=== PATIENT | female | born 1940 | race Caucasian/White ===

== ENCOUNTER 2016-06-13 17:11 | Inpatient (IN) | payer MEDICARE, OTHER ==
[~2016-06-13] VITALS: Ht 167.6 cm; Wt 69.3 kg
[~2016-06-13 17:11] MED LIST: ACET325 PO; ALBU8I INH; DUONSOL2 NEB; ENOX40P SQ; FLUO10TA PO; HYDR10SO PO; LOPR100T PO; LORTA5 PO; MONT10 PO; PERC10TA27 PO; SULF-154 PO; SYMB80AE INH
[2016-06-13 17:13] VITALS: BP 137/61; PULSE 94; RESP 20; TEMP 98.9; O2SAT 92
[2016-06-13] MEDS ORDERED: ONDANSETRON HCL 4 MG/2 ML VIAL IVP ONE (18:00)
[2016-06-13] MEDS ORDERED: SODIUM CHLORIDE 0.9% FLUSH 10 ML FLUSH IV FLUSH PRN ×2 (18:00→22:15)
[2016-06-13] MEDS ORDERED: PRED10PA PO (18:03)
[2016-06-13] MEDS ORDERED: SYMB160A INH (18:03)
[2016-06-13] MEDS ORDERED: VENTAER INH (18:03)
[2016-06-13] MEDS ORDERED: FLUO40CA PO (18:03)
[2016-06-13] MEDS ORDERED: OMEP40CA2 PO (18:03)
[2016-06-13] MEDS ORDERED: GABA100C4 PO (18:03)
[2016-06-13] MEDS ORDERED: MONT10TA4 PO (18:03)
[2016-06-13] MEDS ORDERED: IPRASOL INH (18:03)
[2016-06-13] MEDS ORDERED: PERC10TA27 PO (18:03)
[2016-06-13] MEDS ORDERED: METO50TA PO (18:03)
[2016-06-13 18:09] VITALS: BP 159/70; PULSE 80; RESP 18; O2SAT 98
[2016-06-13 18:23] LABS: AUTOMATED NEUTROPHIL # 11.7 TH/MM3 (1.8-7.7); BASOPHIL % 0.3 % (0.0-2.0); EOSINOPHIL % 0.3 % (0.0-4.0); HEMATOCRIT 38.5 % (35.0-46.0); HEMO FLAGS DIFF FINAL; LYMPH % 7.1 % (9.0-44.0); MEAN CELL VOLUME 92.6 FL (80.0-100.0); MEAN CORPUSCULAR HEMOGLOBIN 30.6 PG (27.0-34.0); MONO % 8.3 % (0.0-8.0); PLATELET COUNT 219 TH/MM3 (150-450); RED BLOOD COUNT 4.16 MIL/MM3 (4.00-5.30); RED CELL DISTRIBUTION WIDTH 14.3 % (11.6-17.2)
[2016-06-13 18:34] LABS: INTERNATIONAL NORMALIZED RATIO 0.9 RATIO; PROTHROMBIN TIME - PATIENT 10.3 SEC (9.8-11.6)
--- NOTE | 2016-06-13 18:45 | RADRPT ---
EXAM DATE/TIME: 06/13/2016 17:55 [facility] COMPARISON: No previous studies available for comparison. INDICATIONS : Chest discomfort, left flank pain for 24 hours MEDICAL HISTORY : None. SURGICAL HISTORY : None. ENCOUNTER: Initial ACUITY: 1 day PAIN SCORE: Non-responsive. LOCATION: Bilateral chest FINDINGS: Mild bibasilar atelectasis. Lungs are hyperexpanded. No pleural effusion or pneumothorax. Heart size stable, within normal limits. Tortuous thoracic aorta again noted. CONCLUSION: Hyperexpanded lungs and mild bibasilar atelectasis. Haseeb Wall MD on June 13, 2016 at 18:43 Board Certified Radiologist. This report was verified electronically.
--- NOTE | 2016-06-13 18:45 | PD ---
HPI Chief Complaint: Flank/Kidney Pain Time Seen by Provider: 18:00 Travel History International Travel<30 days: No Contact w/Intl Traveler<30days: No Traveled to known affect area: No History of Present Illness HPI Patient comes in complaining of left flank pain that began around 1500 today after waking from sleep. Patient denies anything making the pain better or worse. Pain is sharp stabbing like in nature and radiates across her back. Patient denies any nausea, vomiting, abdominal pain, loss or change in bowel or bladder, numbness or tingling anywhere, chest pain, fevers, shortness of breath of the ordinary, or known trauma. PFSH Past Medical History Arthritis: No Asthma: Yes Atrial Fibrillation: Yes Anxiety: No Depression: Yes Heart Rhythm Problems: Yes (CARDIOVERTED FOR A-FIB WITH RVR) Cardiovascular Problems: Yes High Cholesterol: No Chest Pain: No Congestive Heart Failure: No COPD: Yes Cerebrovascular Accident: No Coronary Artery Disease: Yes Diabetes: No Diminished Hearing: No Gastrointestinal Disorders: Yes GERD: Yes Genitourinary: No Hepatitis: No Hiatal Hernia: No Hypertension: Yes Kidney Stones: No Musculoskeletal: Yes (ENTIRE LT SIDE OF BODY PAIN FROM VERTEBRAE) Neurologic: No Psychiatric: Yes Reproductive: No Respiratory: Yes (COPD ON O2 AT ALL TIMES 3 LNC) Migraines: No Myocardial Infarction: No Renal Failure: No Seizures: No Sleep Apnea: No Ulcer: Yes Past Surgical History Abdominal Surgery: Yes Appendectomy: No Cardiac Surgery: No Section: Yes Cholecystectomy: No Ear Surgery: No Endocrine Surgery: No Eye Surgery: No Genitourinary Surgery: No Gynecologic Surgery: Yes Neurologic Surgery: Yes (BLOOD CLOT IN SPINE) Oral Surgery: No Pacemaker: No Thoracic Surgery: No Other Surgery: Yes (CERV FUSION) Social History Alcohol Use: No Tobacco Use: No (Quit 6 years ago) Substance Use: No Allergies-Medications (Allergen,Severity, Reaction): Coded Allergies: *MDRO Multi-Drug Resistant Organism (Verified Allergy, Unknown, 11/25/13) mrsa sputum 2008 Reported Meds & Prescriptions Reported Meds & Active Scripts Active Reported Omeprazole 40 Mg Cap 40 Mg PO DAILY Percocet (Oxycodone-Acetaminophen) 10-325 mg Tab 1 Tab PO Q6H PRN Fluoxetine (Fluoxetine HCl) 40 Mg Cap 40 Cap PO DAILY Montelukast (Montelukast Sodium) 10 Mg Tab 10 Mg PO HS Gabapentin 100 Mg Cap 100 Mg PO BID Duoneb (Ipratropium-Albuterol Neb) 0.5-2.5 Mg/3 Ml Neb 2.5 Nebule INH Q4HR NEB Ventolin Hfa 18 GM Inh (Albuterol Sulfate) 90 Mcg/Act Aer 2 Puff INH Q4H PRN Symbicort Inh (Budesonide/Formoterol Fumarate) 160-4.5 Mcg/Act Aero 1 Puff INH BID PRN Prednisone (21) 10 mg tab Dose Pack (Prednisone) 10 Mg Pack 10 Mg PO DIRECTED Metoprolol Tartrate 50 Mg Tab 50 Mg PO BID Review of Systems Except as stated in HPI: all other systems reviewed are Neg Physical Exam Narrative GENERAL: Well-developed, well nourished, in no acute distress, and non-ill appearing. SKIN: Focused skin assessment warm and dry. HEAD: Atraumatic. Normocephalic. EYES: Pupils equal and round. EOMI. No scleral icterus. No injection or drainage. ENT: No nasal bleeding or discharge. Mucous membranes pink and moist. NECK: Trachea midline. Supple. No nuclear rigidity. CARDIOVASCULAR: Regular rate and rhythm. No murmur appreciated. RESPIRATORY: No accessory muscle use. No respiratory distress. Decreased breath sounds throughout. Breath sounds equal bilaterally. GASTROINTESTINAL: Abdomen soft, non-tender, nondistended. Hepatic and splenic margins not palpable. Normal bowel sounds 4. No pulsatile mass. Left CVA tenderness. MUSCULOSKELETAL: No obvious deformities. No clubbing. No cyanosis. No edema. Full range of motion. NEUROLOGICAL: Awake and alert. No obvious cranial nerve deficits. Motor grossly within normal limits. Normal speech. PSYCHIATRIC: Appropriate mood and affect; insight and judgment normal. Data Data Last Documented VS Vital Signs Date Time Temp Pulse Resp B/P Pulse Ox O2 Delivery O2 Flow Rate FiO2 06/13/16 18:09 80 18 159/70 98 Nasal Cannula 3 06/13/16 17:13 98.9 Orders Complete Blood Count With Diff (06/13/16 17:52) Comprehensive Metabolic Panel (06/13/16 17:52) Lipase (06/13/16 17:52) Prothrombin Time / Inr (Pt) (06/13/16 17:52) Act Partial Throm Time (Ptt) (06/13/16 17:52) Urinalysis - C+S If Indicated (06/13/16 17:52) Ct Abd/Pel W/O Iv Contrast (06/13/16 17:52) Iv Access Insert/Monitor (06/13/16 17:52) Ecg Monitoring (06/13/16 17:52) Oximetry (06/13/16 17:52) Ondansetron Inj (Zofran Inj) (06/13/16 18:00) Sodium Chloride 0.9% Flush (Ns Flush) (06/13/16 18:00) Electrocardiogram (06/13/16 17:52) Chest, Single Ap (06/13/16 17:52) Sodium Polysty Sulfate Liq (Kayexalate L (06/13/16 19:45) Basic Metabolic Panel (Bmp) (06/13/16 19:33) Piperacil-Tazo 3.375 Gm Premix (Zosyn 3. (06/13/16 21:00) Consult Gastroenterology (06/13/16 ) Ondansetron Inj (Zofran Inj) (06/13/16 21:15) Admit Order (Ed Use Only) (06/13/16 21:23) Labs Laboratory Tests Test 06/13/16 06/13/16 06/13/16 18:00 19:25 19:58 White Blood Count 14.0 TH/MM3 Red Blood Count 4.16 MIL/MM3 Hemoglobin 12.7 GM/DL Hematocrit 38.5 % Mean Corpuscular Volume 92.6 FL Mean Corpuscular Hemoglobin 30.6 PG Mean Corpuscular Hemoglobin 33.0 % Concent Red Cell Distribution Width 14.3 % Platelet Count 219 TH/MM3 Mean Platelet Volume 8.5 FL Neutrophils (%) (Auto) 84.0 % Lymphocytes (%) (Auto) 7.1 % Monocytes (%) (Auto) 8.3 % Eosinophils (%) (Auto) 0.3 % Basophils (%) (Auto) 0.3 % Neutrophils # (Auto) 11.7 TH/MM3 Lymphocytes # (Auto) 1.0 TH/MM3 Monocytes # (Auto) 1.2 TH/MM3 Eosinophils # (Auto) 0.0 TH/MM3 Basophils # (Auto) 0.0 TH/MM3 CBC Comment DIFF FINAL Differential Comment Prothrombin Time 10.3 SEC Prothromb Time International 0.9 RATIO Ratio Activated Partial 23.0 SEC Thromboplast Time Sodium Level 133 MEQ/L 135 MEQ/L Potassium Level 5.9 MEQ/L 4.3 MEQ/L Chloride Level 97 MEQ/L 98 MEQ/L Carbon Dioxide Level 30.1 MEQ/L 31.9 MEQ/L Anion Gap 6 MEQ/L 5 MEQ/L Blood Urea Nitrogen 14 MG/DL 13 MG/DL Creatinine 0.61 MG/DL 0.56 MG/DL Estimat Glomerular Filtration 96 ML/MIN 106 ML/MIN Rate Random Glucose 133 MG/DL 106 MG/DL Calcium Level 8.6 MG/DL 8.3 MG/DL Total Bilirubin 0.4 MG/DL Aspartate Amino Transf 53 U/L (AST/SGOT) Alanine Aminotransferase 37 U/L (ALT/SGPT) Alkaline Phosphatase 41 U/L Total Protein 6.2 GM/DL Albumin 2.9 GM/DL Lipase 192 U/L Urine Color STRAW Urine Turbidity HAZY Urine pH 5.5 Urine Specific [place] 1.016 Urine Protein 30 mg/dL Urine Glucose (UA) 100 mg/dL Urine Ketones NEG mg/dL Urine Occult Blood MOD Urine Nitrite NEG Urine Bilirubin NEGATIVE Urine Urobilinogen 0.2 MG/DL Urine Leukocyte Esterase SMALL Urine RBC 0-3 /hpf Urine WBC 3-5 /hpf Urine Squamous Epithelial 6-8 /hpf Cells Urine Bacteria OCC /hpf Microscopic Urinalysis Comment MDM Medical Decision Making Medical Screen Exam Complete: Yes Emergency Medical Condition: Yes Interpretation(s) EKG reviewed by , shows normal sinus rhythm with ventricular is 76. No STEMI. Differential Diagnosis UTI, kidney stone, electrolyte abnormality, pneumonia, other Narrative Course Patient seen and examined. Initial laboratory and radiological studies were obtained reviewed. Patient was given morphine for pain, Zofran for nausea. Discussed patient with Dr. Mtz, who recommended discussing patient with GI secondary to CT findings. Discussed all findings and plan of care with patient , who is agreeable for admission. All questions were answered. 2150 RN for the patient after eating [employer] that her family Barat taking one bite feels that she had something stuck in her throat is having difficulty swallowing. Patient is reevaluated speaking in full sentences but states she feels that she has something stuck in her throat and she has not been able to swallow nor vomited up. 2239 patient reports improvement of symptoms. States she no longer has sensation of something stuck in her throat and is able to swallow her own saliva again. Physician Communication Physician Communication [address] Lamar who recommends having patient admitted to medicine, and nothing by mouth after midnight, Zosyn IV, and he will consult for ERCP. 2119 discussed patient with Haseeb Wagner of Dr. Neff, who is agreeable to admit the patient. [address] Lamar who recommends giving patient dose of glucagon. Diagnosis Primary Impression: Choledocholithiasis Additional Impression: COPD (chronic obstructive pulmonary disease) Qualified Code: J44.9 - Chronic obstructive pulmonary disease, unspecified COPD type Admitting Information Admitting Physician Requests: Observation Condition: Stable Ulices Trujillo Jun 13, 2016 18:45
--- NOTE | 2016-06-13 19:06 | RADRPT ---
EXAM DATE/TIME: 06/13/2016 18:31 [facility] COMPARISON: No previous studies available for comparison. INDICATIONS : Left flank pain starting today. ORAL CONTRAST: No oral contrast ingested. RADIATION DOSE: 13.28 CTDIvol (mGy) MEDICAL HISTORY : Cardiovascular disease. Hypertension. a-fib Cervical fusion SURGICAL HISTORY : Cervical fusion ENCOUNTER: Initial ACUITY: 1 day PAIN SCALE: 9/10 LOCATION: Left flank Abdomen TECHNIQUE: Volumetric scanning of the abdomen and pelvis was performed. Using automated exposure control and ad justment of the mA and/or kV according to patient size, radiation dose was kept as low as reasonably achievable to obtain optimal diagnostic quality images. FINDINGS: LOWER LUNGS: The visualized lower lungs are clear. LIVER: Homogeneous density without solid lesion. The couple cysts up to 18 mm in size are noted. There is n o dilation of the biliary tree. Numerous small stones are seen in the gallbladder, cystic duct and pr obably in the upper common bile duct. No distention seen.. SPLEEN: Normal size without lesion. PANCREAS: Within normal limits. KIDNEYS: 12 mm right mid zone cyst. No stones are seen. No hydronephrosis or hydroureter. ADRENAL GLANDS: Within normal limits. VASCULAR: There is no aortic aneurysm. BOWEL/MESENTERY: The stomach, small bowel, and colon demonstrate no acute abnormality. There is no free intraperitone al air or fluid. ABDOMINAL WALL: Within normal limits. RETROPERITONEUM: There is no lymphadenopathy. BLADDER: No wall thickening or mass. REPRODUCTIVE: Within normal limits. INGUINAL: There is no lymphadenopathy or hernia. MUSCULOSKELETAL: Osteopenia with degenerative changes of the spine, sacroiliac joints and both hips noted. Previous na il and za fixation of the right femur. Mild superior endplate fracture of L5 vertebral body appears chronic. CONCLUSION: 1. Cholelithiasis and choledocholithiasis. Numerous small stones seen in the gallbladder, cystic duct and upper common bile duct. No perceptible acute inflammatory changes or definite acute obstruction. I don't see a stone in the lower duct or ampullary region. 2. No renal stones or obstructive uropathy. Small cyst of the right kidney. 3. Small cysts of the liver. 4. Aortoiliac atherosclerosis. No aneurysm. 5. Degenerative changes of the spine, sacroiliac joints and both hips. Compression deformity of the L 5 vertebral body appears to be chronic. Haseeb Wall MD on June 13, 2016 at 18:59 Board Certified Radiologist. This report was verified electronically.
[2016-06-13 19:14] LABS: ALKALINE PHOSPHATASE 41 U/L (45-117); ALT (GPT) 37 U/L (10-53); ANION GAP 6 MEQ/L (5-15); AST (GOT) 53 U/L (15-37); BICARBONATE 30.1 MEQ/L (21.0-32.0); BLOOD UREA NITROGEN 14 MG/DL (7-18); CHLORIDE 97 MEQ/L (98-107); GLOMERULAR FILTRATION RATE 96 ML/MIN (>89); POTASSIUM 5.9 MEQ/L (3.5-5.1); SODIUM (NA) 133 MEQ/L (136-145); TOTAL BILIRUBIN ADULT 0.4 MG/DL (0.2-1.0)
[2016-06-13] MEDS ORDERED: SODIUM POLYSTYRENE SULFONATE SUSP 15 GM/60 ML CUP PO ONE (19:45)
[2016-06-13 19:52] LABS: BLOOD, URINE MOD (NEG); GLUCOSE,URINE 100 mg/dL (NEG); KETONE, URINE NEG (NEG); PH, URINE 5.5 (5.0-8.5)
[2016-06-13 19:53] LABS: NITRITE,URINE NEG (NEG); URINE COLOR STRAW (YELLW/STRAW)
[2016-06-13 19:54] LABS: BACTERIA, URINE OCC /hpf; COMMENT2 (UR) CULT NOT INDICATED; CULTURE IF INDICATED CULT NOT INDICATED; RBC, URINE 0-3 /hpf (0-3)
[2016-06-13] MEDS ORDERED: PIPERACIL-TAZO 3.375 GM PREMIX 50 ML IV ONE (21:00)
[2016-06-13 21:15] LABS: BICARBONATE 31.9 MEQ/L (21.0-32.0); POTASSIUM 4.3 MEQ/L (3.5-5.1)
[2016-06-13] MEDS ORDERED: ONDANSETRON HCL 4 MG/2 ML VIAL IV PUSH ONE (21:15)
[2016-06-13] MEDS ORDERED: GLUCAGON 1 MG/ML VIAL IV PUSH ONE (22:00)
[2016-06-13] MEDS ORDERED: MORPHINE SULFATE 4 MG/ML INJ IV PRN (22:15)
[2016-06-13] MEDS ORDERED: NALOXONE HCL 0.4 MG/ML AMP IV PRN (22:15)
[2016-06-13] MEDS ORDERED: SENNOSIDES 8.6 MG TAB PO PRN (22:15)
[2016-06-13] MEDS ORDERED: ACETAMINOPHEN 325 MG TAB PO PRN (22:15)
[2016-06-13] MEDS ORDERED: BISACODYL 10 MG SUPP RECTAL PRN (22:15)
[2016-06-13 22:51] VITALS: BP 150/66; PULSE 91; RESP 18; O2SAT 97
[2016-06-13] MEDS: HEPARIN SODIUM - SQ 10,000 UNITS/ML VIAL SQ SCH (23:14)
[2016-06-13] MEDS: SODIUM CHLOR 0.9% 1000 ML INJ 1,000 ML IV SCH (23:14)
[2016-06-14] VITALS (8 sets, daily range): BP systolic 120–204; BP diastolic 58–84; PULSE 80–100; RESP 18–24; TEMP 97.1–98.8; O2SAT 94–99
[2016-06-14] MEDS: ONDANSETRON HCL 4 MG/2 ML VIAL IVP PRN ×3 (00:30→20:07)
[2016-06-14] MEDS: PIPERACIL-TAZO 3.375 GM PREMIX 50 ML IV SCH ×4 (02:11→20:07)
[2016-06-14 08:00] LABS: BASOPHIL % 0.2 % (0.0-2.0); EOSINOPHIL # 0.3 TH/MM3 (0-0.4); EOSINOPHIL % 2.4 % (0.0-4.0); HEMATOCRIT 36.6 % (35.0-46.0); HEMO FLAGS DIFF FINAL; LYMPHOCYTE # 1.9 TH/MM3 (1.0-4.8); MEAN CELL VOLUME 92.2 FL (80.0-100.0); MEAN CORPUSCULAR HEMOGLOBIN 31.2 PG (27.0-34.0); MEAN CORPUSCULAR HGB CONC 33.8 % (32.0-36.0); MONO % 9.8 % (0.0-8.0); NEUT % 72.6 % (16.0-70.0); PLATELET COUNT 174 TH/MM3 (150-450); RED BLOOD COUNT 3.97 MIL/MM3 (4.00-5.30); WHITE BLOOD COUNT 12.5 TH/MM3 (4.0-11.0)
[2016-06-14] MEDS: SODIUM CHLOR 0.9% 1000 ML INJ 1,000 ML IV SCH ×2 (08:07→20:07)
[2016-06-14 08:24] LABS: INDIRECT BILIRUBIN 0.5 MG/DL (0.0-0.8); TOTAL BILIRUBIN ADULT 0.6 MG/DL (0.2-1.0)
--- NOTE | 2016-06-14 08:25 | PD.CONS ---
HPI History of Present Illness This is a 75 year old who came to the emergency room for evaluation of left flank pain that began around 3 PM yesterday after taking a nap. She reports that the pain awakened her from her sleep. She described it as a sharp stabbing pain that radiated across her back. She denies any associated difficulty urinating, dysuria, or hematuria. She initially denied any further abdominal pain, but on examination has significant tenderness in her right upper quadrant and epigastric area. She then described this discomfort as an intermittent dull ache that also radiates to her back. She denies any jaundice , nausea, vomiting, fevers, or chills. She came to the ER for evaluation of her left flank pain and CT scan of the abdomen and pelvis without IV contrast ()-----> 1. Cholelithiasis and choledocholithiasis. Numerous small stones seen in the gallbladder, cystic duct and upper common bile duct. No perceptible acute inflammatory changes or definite acute obstruction. I don't see a stone in the lower duct or ampullary region. 2. No renal stones or obstructive uropathy. Small cyst of the right kidney. 3. Small cysts of the liver. 4. Aortoiliac atherosclerosis. No aneurysm. 5. Degenerative changes of the spine, sacroiliac joints and both hips. Compression deformity of the L5 vertebral body appears to be chronic. She was noted to have leukocytosis with a WBC of 14.0 and mild elevation of her AST- total bilirubin 0.4, AST 53, ALT 37, alkaline phosphatase 41. She also reports that while she was in the ER, she was eating chicken fillet and had a piece of chicken become lodged in her upper esophagus. She denies any prior problems with food getting lodged in her esophagus. She reports initially she was not able to get anything down. But this has since improved and she is able to swallow her saliva and liquids. PFSH Past Medical History COPD Pneumonia History of SVT and atrial fibrillation Arthritis Chronic neck and back pain Obesity History of pulmonary emboli after surgery MRSA of the sputum in 2008 Degenerative disc disease Cervical spondylosis Chronic cervical myelopathy Right intertrochanteric hip fracture, S/P ORIF ONOFRE Past Surgical History Left ankle surgery Cervical spine surgery ORIF Right intertrochanteric hip fracture Coded Allergies: *MDRO Multi-Drug Resistant Organism (Verified Allergy, Unknown, 11/25/13) mrsa sputum 2009 Medications Allergies Coded Allergies Type Severity Reaction Last Updated Verified *MDRO Multi-Drug Resistant Organism Allergy Unknown 11/25/13 Yes Active Scripts Medications Dose Route/Sig Days Date Category Omeprazole 40 Mg Cap 40 Mg PO DAILY 06/13/16 Reported Percocet (Oxycodone-Acetaminophen) 10-325 mg Tab 1 Tab PO Q6H PRN 06/13/16 Reported Fluoxetine (Fluoxetine HCl) 40 Mg Cap 40 Cap PO DAILY 06/13/16 Reported Montelukast (Montelukast Sodium) 10 Mg Tab 10 Mg PO HS 06/13/16 Reported Gabapentin 100 Mg Cap 100 Mg PO BID 06/13/16 Reported Duoneb (Ipratropium-Albuterol Neb) 0.5-2.5 Mg/3 Ml Neb 2.5 Nebule INH Q4HR NEB 06/13/16 Reported Ventolin Hfa 18 GM Inh (Albuterol Sulfate) 90 Mcg/Act Aer 2 Puff INH Q4H PRN 06/13/16 Reported Symbicort Inh (Budesonide/Formoterol Fumarate) 160-4.5 Mcg/Act Aero 1 Puff INH BID PRN 06/13/16 Reported Prednisone (21) 10 mg tab Dose Pack (Prednisone) 10 Mg Pack 10 Mg PO DIRECTED 06/13/16 Reported Metoprolol Tartrate 50 Mg Tab 50 Mg PO BID 06/13/16 Reported Family History She denies any pertinent family history Social History She quit smoking 10 years ago. She is not sure how long she smoked but states that it was for a long time. She does not drink alcohol. There is no illicit drug use Review of Systems Constitutional: DENIES: Fever, Weight loss, Chills, Change in appetite Respiratory: DENIES: Cough Cardiovascular: DENIES: Chest pain Gastrointestinal: COMPLAINS OF: Abdominal pain, Difficulty Swallowing, Odynophagia, DENIES: Black stools, Bloody stools, Constipation, Diarrhea, Nausea, Vomiting, Swelling of Abdomen, Heartburn, Hematemesis Genitourinary: DENIES: Urinary frequency, Urgency, Hematuria, Dysuria Musculoskeletal: COMPLAINS OF: Joint pain, Back pain, Neck pain Hematologic/lymphatic: DENIES: Bruising Psychiatric: DENIES: Anxiety GI Exam Vitals I&O Vital Signs Date Time Temp Pulse Resp B/P Pulse Ox O2 Delivery O2 Flow Rate FiO2 4/13/17 07:43 98.2 91 18 151/65 97 06/14/16 05:15 97.1 80 21 120/60 97 06/14/16 00:30 98.6 90 19 122/58 98 06/13/16 22:51 91 18 150/66 97 Nasal Cannula 3 06/13/16 18:09 80 18 159/70 98 Nasal Cannula 3 06/13/16 17:13 98.9 94 20 137/61 92 Nasal Cannula 3 I/O 06/13/16 06/13/16 06/13/16 06/14/16 06/14/16 06/14/16 07:00 15:00 23:00 07:00 15:00 23:00 Intake Total 0 ml Balance 0 ml Intake Oral 0 ml # Voids 1 # Bowel Movements 0 Imaging Last Impressions Chest X-Ray [id number] Signed Impressions: Service Date/Time: Monday, June 13, 2016 17:55 - CONCLUSION: Hyperexpanded lungs and mild bibasilar atelectasis. Haseeb Wall MD Abdomen/Pelvis CT [id number] Signed Impressions: Service Date/Time: Monday, June 13, 2016 18:31 - CONCLUSION: 1. Cholelithiasis and choledocholithiasis. Numerous small stones seen in the gallbladder, cystic duct and upper common bile duct. No perceptible acute inflammatory changes or definite acute obstruction. I don't see a stone in the lower duct or ampullary region. 2. No renal stones or obstructive uropathy. Small cyst of the right kidney. 3. Small cysts of the liver. 4. Aortoiliac atherosclerosis. No aneurysm. 5. Degenerative changes of the spine, sacroiliac joints and both hips. Compression deformity of the L5 vertebral body appears to be chronic. Haseeb Wall MD Laboratory Test 06/13/16 06/13/16 06/13/16 18:00 19:25 19:58 White Blood Count 14.0 TH/MM3 Red Blood Count 4.16 MIL/MM3 Hemoglobin 12.7 GM/DL Hematocrit 38.5 % Mean Corpuscular Volume 92.6 FL Mean Corpuscular Hemoglobin 30.6 PG Mean Corpuscular Hemoglobin 33.0 % Concent Red Cell Distribution Width 14.3 % Platelet Count 219 TH/MM3 Mean Platelet Volume 8.5 FL Neutrophils (%) (Auto) 84.0 % Lymphocytes (%) (Auto) 7.1 % Monocytes (%) (Auto) 8.3 % Eosinophils (%) (Auto) 0.3 % Basophils (%) (Auto) 0.3 % Neutrophils # (Auto) 11.7 TH/MM3 Lymphocytes # (Auto) 1.0 TH/MM3 Monocytes # (Auto) 1.2 TH/MM3 Eosinophils # (Auto) 0.0 TH/MM3 Basophils # (Auto) 0.0 TH/MM3 CBC Comment DIFF FINAL Differential Comment Prothrombin Time 10.3 SEC Prothromb Time International 0.9 RATIO Ratio Activated Partial 23.0 SEC Thromboplast Time Sodium Level 133 MEQ/L 135 MEQ/L Potassium Level 5.9 MEQ/L 4.3 MEQ/L Chloride Level 97 MEQ/L 98 MEQ/L Carbon Dioxide Level 30.1 MEQ/L 31.9 MEQ/L Anion Gap 6 MEQ/L 5 MEQ/L Blood Urea Nitrogen 14 MG/DL 13 MG/DL Creatinine 0.61 MG/DL 0.56 MG/DL Estimat Glomerular Filtration 96 ML/MIN 106 ML/MIN Rate Random Glucose 133 MG/DL 106 MG/DL Calcium Level 8.6 MG/DL 8.3 MG/DL Total Bilirubin 0.4 MG/DL Aspartate Amino Transf 53 U/L (AST/SGOT) Alanine Aminotransferase 37 U/L (ALT/SGPT) Alkaline Phosphatase 41 U/L Total Protein 6.2 GM/DL Albumin 2.9 GM/DL Lipase 192 U/L Urine Color STRAW Urine Turbidity HAZY Urine pH 5.5 Urine Specific [place] 1.016 Urine Protein 30 mg/dL Urine Glucose (UA) 100 mg/dL Urine Ketones NEG mg/dL Urine Occult Blood MOD Urine Nitrite NEG Urine Bilirubin NEGATIVE Urine Urobilinogen 0.2 MG/DL Urine Leukocyte Esterase SMALL Urine RBC 0-3 /hpf Urine WBC 3-5 /hpf Urine Squamous Epithelial 6-8 /hpf Cells Urine Bacteria OCC /hpf Microscopic Urinalysis Comment Physical Examination HEENT: Normocephalic; atraumatic; no jaundice. CHEST: CTA, diminished bases CARDIAC: RRR ABDOMEN: Soft, nondistended,RUQ/Epigastric with moderate tenderness no hepatosplenomegaly; bowel sounds are present in all four quadrants. EXTREMITIES: Trace ankle/pedal edema. SKIN: Normal; no rash; no jaundice. 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 Assessment and Plan Plan ASSESSMENT: - Cholelithiasis/Choledocholithiasis. CT scan of the abdomen and pelvis without IV contrast (06/13/16)-----> 1. Cholelithiasis and choledocholithiasis. Numerous small stones seen in the gallbladder, cystic duct and upper common bile duct. No perceptible acute inflammatory changes or definite acute obstruction. I don't see a stone in the lower duct or ampullary region. 2. No renal stones or obstructive uropathy. Small cyst of the right kidney. 3. Small cysts of the liver. 4. Aortoiliac atherosclerosis. No aneurysm. 5. Degenerative changes of the spine, sacroiliac joints and both hips. Compression deformity of the L5 vertebral body appears to be chronic. WBC 4.0, Total bilirubin 0.4, AST 53, ALT 37, alkaline phosphatase 41. NPO, plan for ERCP with possible stent placement today. Zosyn. - Dysphagia, Foreign body esophagus. No prior issues with this. Was eating chicken and anguillan fries from [employer] yesterday evening when a piece of chicken became lodged in her upper esophagus. Initially, she states she was not able to get anything down, but states this has since improved. - Leukocytosis. WBC 14.0. Zosyn. - Left flank pain. No renal stones or obstructive uropathy on CT. Denies any dysuria, hematuria, frequency. - COPD/ONOFRE. Per primary PLAN: - Plan for EGD with FB removal, ERCP with possible sphincterotomy, stent placement - Obtain consents - NPO - Cont. IVF - Cont. Zosyn - Add PPI - Hold heparin - Monitor labs - Supportive care - Further recommendations to follow based on results of above - Pt seen and examined by Dr. Beltran and myself and this note is written on his behalf Svetlana Kelley Jun 14, 2016 08:25
[2016-06-14] MEDS: MORPHINE SULFATE 4 MG/ML INJ IV PRN ×2 (09:08→15:30)
[2016-06-14] MEDS: PANTOPRAZOLE SODIUM 40 MG VIAL IV PUSH SCH (10:28)
--- NOTE | 2016-06-14 10:34 | HHI.HP ---
HPI Service [facility] Primary Care Physician Rodrigo Hollingsworth, DO Admission Diagnosis choledocholithiasis, COPD Diagnoses: Chief Complaint: left flank pain (Karen Ngo) Travel History International Travel<30 Days: No Contact w/Intl Traveler <30 Da: No Traveled to Known Affected Are: No (Karen Ngo) History of Present Illness This a 75-year-old female with history of COPD, A. fib, hypertension, hyperlipidemia, GERD. Patient presented to the emergency room complaining of left flank pain. According to the patient, the pain started around 3 PM yesterday after she had woken up from sleeping. There was no radiation to the pain, nothing made the pain better or worse. It was sharp, stabbing. Denies any nausea, no vomiting. There was no change in bowel movement, no blood in the stool, no diarrhea. Pain was not exacerbated by meals. In the emergency room, patient was evaluated. A CT of the abdomen and pelvis without contrast was done that showed cholelithiasis and choledocholithiasis, no murmurs small stone seen in the gallbladder, cystic duct, upper common bile. No perceptible acute inflammatory changes or definitive acute obstruction. There was no stone visualized in the lower duct or ampullary region. No renal stones or obstructive uropathy. Small cyst of the right kidney. A small cyst of the liver. Aortoiliac atherosclerosis. No aneurysm. Degenerative changes of the spine grew iliac joints in both hips noted. Compression deformity of L5 vertebral body which appears to be chronic. Laboratory workup completed showed leukocytosis, WBC of 14 and mild elevation of AST. Patient also reported that while she was in the emergency room she had difficulty swallowing, a piece of chicken got stuck in the upper esophagus. This has been resolved now. She is able to swallow fluids now. Patient has been evaluated by gastroenterology, she is on route to having ERCP and EGD. At this time denies any chest pain, no shortness of breath. Has left flank pain to palpation. She is hemodynamically stable. Patient admitted for further evaluation and treatment. (Karen Ngo) Review of Systems Constitutional: DENIES: Diaphoretic episodes, Fatigue, Fever, Weight gain, Weight loss, Chills, Dizziness, Change in appetite, Night Sweats Endocrine: DENIES: Abnorml menstrual pattern, Heat/cold intolerance, Polydipsia , Polyuria, Polyphagia Eyes: DENIES: Blurred vision, Diplopia, Eye inflammation, Eye pain, Vision loss , Photosensitivity, Double Vision Ears, nose, mouth, throat: DENIES: Tinnitus, Hearing loss, Vertigo, Nasal discharge, Oral lesions, Throat pain, Hoarseness, Ear Pain, Running Nose, Epistaxis, Sinus Pain, Toothache, Odynophagia Respiratory: COMPLAINS OF: Shortness of breath, DENIES: Apneas, Cough, Snoring , Wheezing, Hemoptysis, Sputum production Cardiovascular: DENIES: Chest pain, Palpitations, Syncope, Dyspnea on Exertion , PND, Lower Extremity Edema, Orthopnea, Claudication Gastrointestinal: COMPLAINS OF: Abdominal pain, Difficulty Swallowing Genitourinary: DENIES: Abnormal vaginal bleeding, Dysmenorrhea, Dyspareunia, Sexual dysfunction, Urinary frequency, Urinary incontinence, Urgency, Hematuria , Dysuria, Nocturia, Vaginal discharge Musculoskeletal: DENIES: Joint pain, Muscle aches, Stiffness, Joint Swelling, Back pain, Neck pain Integumentary: DENIES: Abnormal pigmentation, Pruritus, Rash, Nail changes, Breast masses, Breast skin changes, Nipple discharge Hematologic/lymphatic: DENIES: Bruising, Lymphadenopathy Immunologic/allergic: DENIES: Eczema, Urticaria Neurologic: DENIES: Abnormal gait, Headache, Localized weakness, Paresthesias, Seizures, Speech Problems, Tremor, Poor Balance Psychiatric: DENIES: Anxiety, Confusion, Mood changes, Depression, Hallucinations, Agitation, Suicidal Ideation, Homicidal Ideation, Delusions ( Karen Ngo) Past Family Social History Past Medical History 1. COPD, oxygen dependent. During previous hospitalization she has been seen by Dr. Leslie but does not follow up with him regularly. 2. Pneumonia. 3. History of SVT and A-Fib with a questionable cardioversion. 4. Arthritis. 5. Previous falls with head contusions and subgaleal hematoma in 2012. 6. Chronic neck and back pain. 7. Obesity. 8. Pulmonary emboli after surgery. 9. MRSA of the sputum in 2008. 10. Prior tobacco abuse. 11. Degenerative disc disease. 12. Cervical spondylosis. 13. Chronic cervical myelopathy. Past Surgical History 1. Left ankle surgery. 2. Cervical spine fusion. 3 right hip ORIF January 2015 Reported Medications Reported Meds & Active Scripts Active Reported Omeprazole 40 Mg Cap 40 Mg PO DAILY Percocet (Oxycodone-Acetaminophen) 10-325 mg Tab 1 Tab PO Q6H PRN Fluoxetine (Fluoxetine HCl) 40 Mg Cap 40 Cap PO DAILY Montelukast (Montelukast Sodium) 10 Mg Tab 10 Mg PO HS Gabapentin 100 Mg Cap 100 Mg PO BID Duoneb (Ipratropium-Albuterol Neb) 0.5-2.5 Mg/3 Ml Neb 2.5 Nebule INH Q4HR NEB Ventolin Hfa 18 GM Inh (Albuterol Sulfate) 90 Mcg/Act Aer 2 Puff INH Q4H PRN Symbicort Inh (Budesonide/Formoterol Fumarate) 160-4.5 Mcg/Act Aero 1 Puff INH BID PRN Prednisone (21) 10 mg tab Dose Pack (Prednisone) 10 Mg Pack 10 Mg PO DIRECTED Metoprolol Tartrate 50 Mg Tab 50 Mg PO BID (Karen Ngo) Allergies: Coded Allergies: *MDRO Multi-Drug Resistant Organism (Verified Allergy, Unknown, 11/25/13) mrsa sputum 2008 Active Ordered Medications Inpatient Medications Acetaminophen (Tylenol) 650 mg Q4H PRN PO TEMP > 100.4; Start 06/13/16 at 22:15 Bisacodyl (Dulcolax Supp) 10 mg DAILY PRN RECTAL CONSTIPATION; Start 06/13/16 at 22:15 Glucagon 2 mg 2 mg ONCE ONCE IV PUSH Last administered on 06/13/16 22:18; Start 06/13/16 at 22:00; Stop 06/13/16 at 22:01; Status DC Heparin Sodium (Porcine) (Heparin Inj) 5,000 units Q12H SQ Last administered on 06/13/16 23:14; Start 06/13/16 at 22:15; Status Hold Miscellaneous Information ALL NURSING DEPARTME... UNSCH PRN .XX SEE LABEL COMMENTS; Start 06/14/16 at 14:00; Stop 06/15/16 at 13:59 Morphine Sulfate (Morphine Inj) 4 mg Q3H PRN IV Pain 6-10;if unable to take PO Last administered on 06/14/16 09:08; Start 06/13/16 at 22:15 Naloxone HCl 0.4 mg 0.4 mg UNSCH PRN IV SEE LABEL COMMENTS; Start 06/13/16 at 22:15 Ondansetron HCl (Zofran Inj) 4 mg Q6H PRN IVP NAUSEA OR VOMITING Last administered on 06/14/16 14:35; Start 06/13/16 at 22:15 Pantoprazole Sodium (Protonix Inj) 40 mg Q24H IV PUSH Last administered on 06/14 10:28; Start 06/14/16 at 09:00 Piperacillin Sod/ Tazobactam Sod (Zosyn 3.375 Gm Premix) 50 ml @ 100 mls/hr Q6H IV Last administered on 06/14/16 08:12; Start 06/14/16 at 03:00 Sennosides (Senokot) 17.2 mg Q12H PRN PO CONSTIPATION; Start 06/13/16 at 22:15 Sodium Polystyrene Sulfonate (Kayexalate Liq) 15 gm ONCE ONCE PO ; Start at 19:45; Stop 06/13/16 at 21:17; Status DC Sodium Chloride (NS 1000 ml Inj) 1,000 ml @ 100 mls/hr Q10H IV Last administered on 06/14/16 08:07; Start 06/13/16 at 22:07 Sodium Chloride (NS Flush) 2 ml UNSCH PRN IV FLUSH FLUSH AFTER USING IV ACCESS ; Start 06/13/16 at 22:15 Family History Reviewed, noncontributory Social History The patient is , lives with her . She uses a walker occasionally but is very sedentary. does all the cooking and takes care of her. She does not drink any alcohol. She has two growth children. She quit smoking approximately 10 years ago. She was a heavy smoker of one pack a day for 40-50 years. (Karen Ngo) Physical Exam Vital Signs Vital Signs Date Time Temp Pulse Resp B/P Pulse Ox O2 Delivery O2 Flow Rate FiO2 06/14/16 07:43 98.2 91 18 151/65 97 06/14/16 05:15 97.1 80 21 120/60 97 06/14/16 00:30 98.6 90 19 122/58 98 06/13/16 22:51 91 18 150/66 97 Nasal Cannula 3 06/13/16 18:09 80 18 159/70 98 Nasal Cannula 3 06/13/16 17:13 98.9 94 20 137/61 92 Nasal Cannula 3 Physical Exam GENERAL: This is a well-nourished, well-developed patient, in no apparent distress. SKIN: No rashes, ecchymoses or lesions. Cool and dry. HEAD: Atraumatic. Normocephalic. No temporal or scalp tenderness. EYES: Pupils equal round and reactive. Extraocular motions intact. No scleral icterus. No injection or drainage. ENT: Nose without bleeding, purulent drainage or septal hematoma. Throat without erythema, tonsillar hypertrophy or exudate. Uvula midline. Airway patent. NECK: Trachea midline. No JVD or lymphadenopathy. Supple, nontender, no meningeal signs. CARDIOVASCULAR: Regular rate and rhythm without murmurs, gallops, or rubs. RESPIRATORY: Diminished, poor inspiratory effort GASTROINTESTINAL: Abdomen soft, left flank tender, nondistended. No hepato- splenomegaly, or palpable masses. No guarding. MUSCULOSKELETAL: Extremities without clubbing, cyanosis, or edema. No joint tenderness, effusion, or edema noted. No calf tenderness. Negative Homans sign bilaterally. NEUROLOGICAL: Awake, alert oriented 3. Focal deficit. Laboratory Laboratory Tests Test 06/13/16 06/13/16 06/13/16 06/14/16 18:00 19:25 19:58 07:13 White Blood Count 14.0 12.5 Red Blood Count 4.16 3.97 Hemoglobin 12.7 12.4 Hematocrit 38.5 36.6 Mean Corpuscular Volume 92.6 92.2 Mean Corpuscular Hemoglobin 30.6 31.2 Mean Corpuscular Hemoglobin 33.0 33.8 Concent Red Cell Distribution Width 14.3 14.0 Platelet Count 219 174 Mean Platelet Volume 8.5 8.1 Neutrophils (%) (Auto) 84.0 72.6 Lymphocytes (%) (Auto) 7.1 15.0 Monocytes (%) (Auto) 8.3 9.8 Eosinophils (%) (Auto) 0.3 2.4 Basophils (%) (Auto) 0.3 0.2 Neutrophils # (Auto) 11.7 9.0 Lymphocytes # (Auto) 1.0 1.9 Monocytes # (Auto) 1.2 1.2 Eosinophils # (Auto) 0.0 0.3 Basophils # (Auto) 0.0 0.0 CBC Comment DIFF FINAL DIFF FINAL Differential Comment Prothrombin Time 10.3 Prothromb Time International 0.9 Ratio Activated Partial 23.0 Thromboplast Time Sodium Level 133 135 139 Potassium Level 5.9 4.3 4.0 Chloride Level 97 98 102 Carbon Dioxide Level 30.1 31.9 31.0 Anion Gap 6 5 6 Blood Urea Nitrogen 14 13 10 Creatinine 0.61 0.56 0.58 Estimat Glomerular Filtration 96 106 102 Rate Random Glucose 133 106 64 Calcium Level 8.6 8.3 8.5 Total Bilirubin 0.4 0.6 Aspartate Amino Transf 53 18 (AST/SGOT) Alanine Aminotransferase 37 31 (ALT/SGPT) Alkaline Phosphatase 41 33 Total Protein 6.2 5.4 Albumin 2.9 2.9 Lipase 192 Urine Color STRAW Urine Turbidity HAZY Urine pH 5.5 Urine Specific [place] 1.016 Urine Protein 30 Urine Glucose (UA) 100 Urine Ketones NEG Urine Occult Blood MOD Urine Nitrite NEG Urine Bilirubin NEGATIVE Urine Urobilinogen 0.2 Urine Leukocyte Esterase SMALL Urine RBC 0-3 Urine WBC 3-5 Urine Squamous Epithelial 6-8 Cells Urine Bacteria OCC Microscopic Urinalysis Comment Direct Bilirubin 0.1 Indirect Bilirubin 0.5 (Karen Ngo) Result Diagram: 06/14/1671206/14/16712 Assessment and Plan Problem List: (1) Left flank pain (2) Choledocholithiasis (3) Dysphagia (4) GERD (gastroesophageal reflux disease) (5) ONOFRE (obstructive sleep apnea) (6) COPD (chronic obstructive pulmonary disease) (7) Hyperkalemia (8) Leukocytosis Assessment and Plan Admit to Dr. Neff 75-year-old female admitted with left flank pain, CT of the abdomen and pelvis without contrast was done that showed cholelithiasis and choledocholithiasis, no murmurs small stone seen in the gallbladder, cystic duct, upper common bile. No perceptible acute inflammatory changes or definitive acute obstruction. There was no stone visualized in the lower duct or ampullary region. No renal stones or obstructive uropathy. Small cyst of the right kidney. A small cyst of the liver. Aortoiliac atherosclerosis. No aneurysm. Degenerative changes of the spine and sacroiliac joints in both hips noted. Compression deformity of L5 vertebral body which appears to be chronic. -Appreciate GI input, recommendations are for ERCP and sphincterotomy and possible stent placement -Continue with empiric antibiotics -NPO -Continue with IV fluids Continue with morphine for pain management Reported dysphagia, piece a chicken became stuck to upper esophagus. Symptoms have now resolved -Nothing by mouth GI input appreciated, the plan is for EGD and possible esophageal dilatation with foreign body removal -Monitor for aspiration COPD, stable Oxygen at 2 L Duo nebs when necessary -Resume Symbicort GERD Resume PPI SCDs for DVT prophylaxis PPI for GI prophylaxis Plan of care has been discussed with the patient, attending and registered nurse. Further management of the patient will be dependent on the hospital course This patient was seen by myself and Dr. Neff, this H&P is written on his behalf (Karen Ngo) Assessment and Plan Case reviewed, discussed with nurse practitioner, agree with the above plan Further planning after ERCP (Elzbieta Neff MD) Physician Certification 2 Midnight Certification Type: Admission for Inpatient Services Order for Inpatient Services The services are ordered in accordance with Medicare regulations or non- Medicare payer requirements, as applicable. In the case of services not specified as inpatient-only, they are appropriately provided as inpatient services in accordance with the 2-midnight benchmark. Estimated LOS (days): 2 2 days is the estimated time the patient will need to remain in the hospital, assuming treatment plan goals are met and no additional complications. Post-Hospital Plan: Home Health (Karen Ngo) Problem Qualifiers (1) Dysphagia: Qualified Code: R13.10 - Dysphagia, unspecified type (2) GERD (gastroesophageal reflux disease): Qualified Code: K21.9 - Gastroesophageal reflux disease, esophagitis presence not specified (3) COPD (chronic obstructive pulmonary disease): Qualified Code: J44.9 - Chronic obstructive pulmonary disease, unspecified COPD type (4) Leukocytosis: Qualified Code: D72.829 - Leukocytosis, unspecified type Karen Ngo Jun 14, 2016 10:34 Elzbieta Neff MD Jun 14, 2016 18:33
[2016-06-14] MEDS ORDERED: PHENYLEPH/NS 1000 MCG/10 ML SYR IV ONE (12:00)
[2016-06-14] MEDS ORDERED: IOHEXOL 350 MG/ML 100 ML BTL (for RAD DIAG) OTHER ONE (13:03)
--- NOTE | 2016-06-14 13:23 | GIPROC ---
[facility] [address] [facility]. [facility], [address] EGD PROCEDURE REPORT EXAM DATE: 06/14/2016 PATIENT NAME: Libia Schaffer MR #: [id number] BIRTHDATE: 1940 ATTENDING: William Beltran MD ORDER #: [id number] OCCUPATIONAL THERAPY SUPERVISOR: Antonio Thomason CST and Vanessa Menard STATUS: inpatient INDICATIONS: The patient is a 75 yr old female here for an EGD due to possible forign body and dysphagia PROCEDURE PERFORMED: EGD w/ biopsy EGD w/ dilation of esophagus via guidewire MEDICATIONS: Per Anesthesia and None. TOPICAL ANESTHETIC: CONSENT: The patient understands the risks and benefits of the procedure and understands that these risks include, but are not limited to: sedation, allergic reaction, infection, perforation and/or bleeding. Alternative means of evaluation and treatment include, among others: physical exam, x-rays, and/or surgical intervention. The patient elects to proceed with this endoscopic procedure. medical equipment was checked for proper function. Hand hygiene and appropriate measures for infection prevention was taken. After the risks, benefits and alternatives of the procedure were thoroughly explained, Informed consent was verified, confirmed and timeout was successfully executed by the treatment team. The patient was anesthetized with topical anesthesia and the Pentax [id number] endoscope was introduced through the mouth and advanced to the second portion of the duodenum. Retroflexed views revealed no abnormalities The gastroscope was then slowly withdrawn and removed. Mild duodenitis Bx from antrum to R/O H pylori. Esophageal stricture S/P dilation savary size 17 mm. The endoscopy was otherwise normal. ADVERSE EVENTS: There were no complications. IMPRESSIONS: 1. Mild duodenitis Bx from antrum to R/O H pylori 2. Esophageal stricture S/P dilation savary size 17 mm 3. Normal endoscopy otherwise 4. Retroflexed views revealed no abnormalities RECOMMENDATIONS: 1. Anti-reflux regimen 2. Continue PPI 3. Await biopsy results. Biopsy results will not be ready for 7-10 days. If you don't hear from us in two weeks, call our office for biopsy results. PATIENT CONDITION: stable DISPOSITION: Inpatient REPEAT EXAM: Return as needed for EGD William Beltran MD eSigned: William Beltran MD 06/14/2016 1:23 PM cc:
[2016-06-14] MEDS ORDERED: DO NOT ADM ANY ANTICOAGULANT DRUGS PRN (14:00)
--- NOTE | 2016-06-14 14:33 | RADRPT ---
EXAM DATE/TIME: 06/14/2016 13:43 [facility] COMPARISON: CT ABDOMEN & PELVIS W/O CONTRAST, June 13, 2016, 18:31. INDICATIONS : Obstruction. FLUORO TIME: 2 minutes IMAGE COUNT: 2.7 CONTRAST: Instilled by Ordering Physician MEDICAL HISTORY : Cardiovascular disease. Hypertension. A-fib. SURGICAL HISTORY : None. ENCOUNTER: Subsequent ACUITY: 2 days PAIN SCORE: Non-responsive. LOCATION: Abdomen. FINDINGS: An ERCP was performed by the ordering physician. The images demonstrate 2 spot fluoroscopic images were obtained during ERCP examination. Image 1/2 do cuments a balloon within a mildly dilated common bile duct. No definite filling defect is seen. Image 2 of 2 was taken after scope removal. CONCLUSION: ERCP as above. Please refer to paster hat lining report for further description. Haseeb Merida MD on June 14, 2016 at 14:30 Board Certified Radiologist. This report was verified electronically.
[2016-06-14] MEDS ORDERED: PROPOFOL 200 MG/20 ML AMP IV ONE (14:43)
[2016-06-14] MEDS ORDERED: RESP: ALBUTEROL 2.5 MG/IPRATROPIUM 0.5 MG NEB (PRN) NEB (15:30)
[2016-06-14] MEDS: HYDROmorphone HCL PF 1 MG/ML VIAL IV PRN ×2 (17:15→23:32)
[2016-06-14] MEDS: MONTELUKAST SODIUM 10 MG TAB PO SCH (20:06)
[2016-06-14] MEDS: METOPROLOL TARTRATE 50 MG TAB PO SCH (20:06)
[2016-06-14] MEDS: GABAPENTIN 100 MG CAP PO SCH (20:07)
[2016-06-14] MEDS: BUDESONIDE-FORMOTEROL 160/4.5 MCG INHALER INH SCH (21:00)
[2016-06-14] MEDS: ACETAMINOPHEN/HYDROcodone 325 MG/7.5 MG TAB PO PRN (23:32)
[2016-06-15] VITALS (7 sets, daily range): BP systolic 130–205; BP diastolic 65–84; PULSE 76–110; RESP 18–23; TEMP 98.2–99.5; O2SAT 93–98
[2016-06-15] MEDS: SODIUM CHLOR 0.9% 1000 ML INJ 1,000 ML IV SCH ×2 (02:02→13:23)
[2016-06-15] MEDS: PIPERACIL-TAZO 3.375 GM PREMIX 50 ML IV SCH ×4 (02:02→21:19)
[2016-06-15] MEDS: ACETAMINOPHEN/HYDROcodone 325 MG/7.5 MG TAB PO PRN ×3 (05:26→22:40)
[2016-06-15 07:28] LABS: AUTOMATED NEUTROPHIL # 15.1 TH/MM3 (1.8-7.7); BASOPHIL # 0.1 TH/MM3 (0-0.2); BASOPHIL % 0.4 % (0.0-2.0); EOSINOPHIL # 0.4 TH/MM3 (0-0.4); EOSINOPHIL % 2.2 % (0.0-4.0); HEMATOCRIT 40.2 % (35.0-46.0); HEMO FLAGS DIFF FINAL; LYMPH % 4.3 % (9.0-44.0); LYMPHOCYTE # 0.8 TH/MM3 (1.0-4.8); MEAN CELL VOLUME 92.3 FL (80.0-100.0); MEAN CORPUSCULAR HEMOGLOBIN 31.4 PG (27.0-34.0); MONO % 9.2 % (0.0-8.0); NEUT % 83.9 % (16.0-70.0); PLATELET COUNT 167 TH/MM3 (150-450); RED BLOOD COUNT 4.36 MIL/MM3 (4.00-5.30); RED CELL DISTRIBUTION WIDTH 13.6 % (11.6-17.2)
--- NOTE | 2016-06-15 07:40 | EKG ---
Date Performed: 06/13/2016 Time Performed: 18:31:41 PTAGE: 75 years EKG: Sinus rhythm NORMAL ECG Compared to PREVIOUS TRACING , the sinus rate has slowed. PREVIOUS TRACIN03/13/2014 19.09 DOCTOR: José Antonio Rodriges Interpretating Date/Time 06/15/2016 07:38:47
[2016-06-15 07:59] LABS: ALKALINE PHOSPHATASE 48 U/L (45-117); ALT (GPT) 97 U/L (10-53); ANION GAP 4 MEQ/L (5-15); AST (GOT) 69 U/L (15-37); BICARBONATE 32.7 MEQ/L (21.0-32.0); BLOOD UREA NITROGEN 7 MG/DL (7-18); CHLORIDE 95 MEQ/L (98-107); GLOMERULAR FILTRATION RATE 98 ML/MIN (>89); MAGNESIUM 1.9 MG/DL (1.5-2.5); POTASSIUM 4.7 MEQ/L (3.5-5.1); SODIUM (NA) 132 MEQ/L (136-145); TOTAL BILIRUBIN ADULT 3.8 MG/DL (0.2-1.0)
[2016-06-15] MEDS: PANTOPRAZOLE SODIUM 40 MG VIAL IV PUSH SCH (08:30)
[2016-06-15] MEDS: GABAPENTIN 100 MG CAP PO SCH ×2 (08:56→21:31)
[2016-06-15] MEDS: FLUoxetine HCL 20 MG CAP PO SCH (08:57)
[2016-06-15] MEDS ORDERED: NON-FORMULARY DRUG (Omeprazole 40 MG) PO SCH (09:00)
[2016-06-15] MEDS: METOPROLOL TARTRATE 50 MG TAB PO SCH ×2 (09:06→21:30)
[2016-06-15] MEDS: BUDESONIDE-FORMOTEROL 160/4.5 MCG INHALER INH SCH ×2 (09:28→21:17)
[2016-06-15] MEDS: HYDROmorphone HCL PF 1 MG/ML VIAL IV PRN (11:37)
--- NOTE | 2016-06-15 13:41 | HHI.PR ---
Subjective Remarks Pain now over right upper abdomen epigastric area and radiating to left Has been nauseous, no vomiting Remains nothing by mouth except for meds No fever No chest pain No shortness of breath Blood pressure elevated, 182/81 Objective Objective Results - Vital Signs Date Time Temp Pulse Resp B/P Pulse Ox O2 Delivery O2 Flow Rate FiO2 06/15/16 12:32 80 18 182/81 97 06/15/16 12:31 18 06/15/16 12:25 98.2 87 20 205/77 97 06/15/16 08:37 98.9 86 20 185/84 98 06/15/16 05:00 99.4 100 20 130/65 93 06/15/16 04:00 Nasal Cannula 3.00 06/15/16 00:00 98.8 110 23 135/79 93 06/15/16 00:00 Nasal Cannula 3.00 06/14/16 20:30 98.1 80 21 125/62 94 06/14/16 20:21 98 Nasal Cannula 2.00 06/14/16 20:00 Nasal Cannula 3.00 06/14/16 16:10 98.8 90 18 204/84 98 06/14/16 16:05 100 24 169/78 99 06/14/16 14:45 98.2 94 14 165/88 95 Nasal Cannula 2 06/14/16 14:30 95 14 166/87 95 Nasal Cannula 2 06/14/16 14:15 98 14 154/63 95 Nasal Cannula 2 06/14/16 14:03 98.2 109 14 156/74 99 Nasal Cannula 3 I/O 06/14/16 06/14/16 06/14/16 06/15/16 06/15/16 06/15/16 07:00 15:00 23:00 07:00 15:00 23:00 Intake Total 0 ml 1000 ml 462 ml 888 ml Balance 0 ml 1000 ml 462 ml 888 ml Intake Oral 0 ml 0 ml 0 ml IV Total 462 ml 888 ml Other 1000 ml # Voids 1 1 4 # Bowel Movements 0 0 0 Result Diagram: 06/15/16 0701 06/15/16 0701 Other Results Laboratory Tests Test 06/15/16 07:01 White Blood Count 18.0 Red Blood Count 4.36 Hemoglobin 13.7 Hematocrit 40.2 Mean Corpuscular Volume 92.3 Mean Corpuscular Hemoglobin 31.4 Mean Corpuscular Hemoglobin 34.0 Concent Red Cell Distribution Width 13.6 Platelet Count 167 Mean Platelet Volume 7.7 Neutrophils (%) (Auto) 83.9 Lymphocytes (%) (Auto) 4.3 Monocytes (%) (Auto) 9.2 Eosinophils (%) (Auto) 2.2 Basophils (%) (Auto) 0.4 Neutrophils # (Auto) 15.1 Lymphocytes # (Auto) 0.8 Monocytes # (Auto) 1.7 Eosinophils # (Auto) 0.4 Basophils # (Auto) 0.1 CBC Comment DIFF FINAL Differential Comment Sodium Level 132 Potassium Level 4.7 Chloride Level 95 Carbon Dioxide Level 32.7 Anion Gap 4 Blood Urea Nitrogen 7 Creatinine 0.60 Estimat Glomerular Filtration 98 Rate Random Glucose 89 Calcium Level 8.8 Phosphorus Level 2.8 Magnesium Level 1.9 Total Bilirubin 3.8 Aspartate Amino Transf 69 (AST/SGOT) Alanine Aminotransferase 97 (ALT/SGPT) Alkaline Phosphatase 48 Total Protein 5.7 Albumin 2.7 ROS General: No: Fatigue, Weakness HEENT: No: Sore Throat, Dysphagia Cardiac: No: Chest Pain, Edema, Palpitations Pulmonary: No: Cough, SOB, Wheezing GI: Abdominal Pain, N/V, No: BM, Diarrhea, Other /MENTAL HYGIENIST: No: Dysuria, Urgency Neuro/MS: No: Lightheaded, Confusion Psych: No: Anxiety, Depression Skin: No: Itching, Rash Physical Exam Physical Exam GENERAL: This is a well-nourished, well-developed patient, in no apparent distress. SKIN: No rashes, ecchymoses or lesions. Cool and dry. HEAD: Atraumatic. Normocephalic. No temporal or scalp tenderness. EYES: Pupils equal round and reactive. Extraocular motions intact. No scleral icterus. No injection or drainage. ENT: Nose without bleeding, purulent drainage or septal hematoma. Throat without erythema, tonsillar hypertrophy or exudate. Uvula midline. Airway patent. NECK: Trachea midline. No JVD or lymphadenopathy. Supple, nontender, no meningeal signs. CARDIOVASCULAR: Regular rate and rhythm without murmurs, gallops, or rubs. RESPIRATORY: Diminished, poor inspiratory effort GASTROINTESTINAL: Abdomen soft, tender over right upper abdomen, epigastric area radiating to left flank. nondistended. No hepato-splenomegaly, or palpable masses. No guarding. MUSCULOSKELETAL: Extremities without clubbing, cyanosis, or edema. No joint tenderness, effusion, or edema noted. No calf tenderness. Negative Homans sign bilaterally. NEUROLOGICAL: Awake, alert oriented 3. Focal deficit. Urinary Catheter: No Vascular Central Line Catheter: No A/P Diagnosis: (1) Left flank pain (2) Choledocholithiasis (3) Dysphagia (4) GERD (gastroesophageal reflux disease) (5) ONOFRE (obstructive sleep apnea) (6) COPD (chronic obstructive pulmonary disease) (7) Hyperkalemia (8) Leukocytosis Assessment and Plan 75-year-old female admitted with left flank pain, CT of the abdomen and pelvis without contrast was done that showed cholelithiasis and choledocholithiasis, no murmurs small stone seen in the gallbladder, cystic duct, upper common bile. No perceptible acute inflammatory changes or definitive acute obstruction. There was no stone visualized in the lower duct or ampullary region. No renal stones or obstructive uropathy. Small cyst of the right kidney. A small cyst of the liver. Aortoiliac atherosclerosis. No aneurysm. Degenerative changes of the spine and sacroiliac joints in both hips noted. Compression deformity of L5 vertebral body which appears to be chronic. -Appreciate GI input, status post ERCP and sphincterotomy and balloon sweep 06/14 ; no filling defect noted -NPO except meds -Continue with IV fluids -Remains nauseous with right upper and epigastric abdominal tenderness, continue with antiemetics and pain management -WBC elevated, 18 today. Continue with antibiotics -LFTs elevated, AST 69, ALT 97. T bili 3.8 Reported dysphagia, piece a chicken became stuck to upper esophagus. Symptoms have now resolved -Nothing by mouth Status post EGD with esophageal dilatation, no foreign body noted -Monitor for aspiration COPD, stable Oxygen at 2 L Duo nebs when necessary -Resume Symbicort GERD Continue PPI SCDs for DVT prophylaxis PPI for GI prophylaxis Continue with pain management and antiemetics when necessary, remains nothing by mouth per GI recommendations. Repeat labs in a.m. D/W RN D/W Dr. Neff D/W pt. This patient was seen by myself and Dr. Neff, this note is written on his behalf Problem Qualifiers (1) Dysphagia: Qualified Code: R13.10 - Dysphagia, unspecified type (2) GERD (gastroesophageal reflux disease): Qualified Code: K21.9 - Gastroesophageal reflux disease, esophagitis presence not specified (3) COPD (chronic obstructive pulmonary disease): Qualified Code: J44.9 - Chronic obstructive pulmonary disease, unspecified COPD type (4) Leukocytosis: Qualified Code: D72.829 - Leukocytosis, unspecified type Karen Ngo FR[employer] W[employer]ER Jun 15, 2016 13:41
--- NOTE | 2016-06-15 16:43 | HHI.GIFU ---
Subjective Remarks Pt resting comfortably in bed. Says her pain is gone. No n/v, diarrhea. Objective Vitals I&O Vital Signs Date Time Temp Pulse Resp B/P Pulse Ox O2 Delivery O2 Flow Rate FiO2 06/15/16 16:01 99.5 76 20 170/77 98 06/15/16 15:45 97 Nasal Cannula 3.00 06/15/16 12:32 80 18 182/81 97 06/15/16 12:31 18 06/15/16 12:25 98.2 87 20 205/77 97 06/15/16 08:37 98.9 86 20 185/84 98 06/15/16 05:00 99.4 100 20 130/65 93 06/15/16 04:00 Nasal Cannula 3.00 06/15/16 00:00 98.8 110 23 135/79 93 06/15/16 00:00 Nasal Cannula 3.00 06/14/16 20:30 98.1 80 21 125/62 94 06/14/16 20:21 98 Nasal Cannula 2.00 06/14/16 20:00 Nasal Cannula 3.00 I/O 06/14/16 06/14/16 06/14/16 06/15/16 06/15/16 06/15/16 07:00 15:00 23:00 07:00 15:00 23:00 Intake Total 0 ml 1000 ml 462 ml 888 ml Balance 0 ml 1000 ml 462 ml 888 ml Intake Oral 0 ml 0 ml 0 ml IV Total 462 ml 888 ml Other 1000 ml # Voids 1 1 4 3 # Bowel Movements 0 0 0 Laboratory Laboratory Tests Test 06/15/16 07:01 White Blood Count 18.0 Red Blood Count 4.36 Hemoglobin 13.7 Hematocrit 40.2 Mean Corpuscular Volume 92.3 Mean Corpuscular Hemoglobin 31.4 Mean Corpuscular Hemoglobin 34.0 Concent Red Cell Distribution Width 13.6 Platelet Count 167 Mean Platelet Volume 7.7 Neutrophils (%) (Auto) 83.9 Lymphocytes (%) (Auto) 4.3 Monocytes (%) (Auto) 9.2 Eosinophils (%) (Auto) 2.2 Basophils (%) (Auto) 0.4 Neutrophils # (Auto) 15.1 Lymphocytes # (Auto) 0.8 Monocytes # (Auto) 1.7 Eosinophils # (Auto) 0.4 Basophils # (Auto) 0.1 CBC Comment DIFF FINAL Differential Comment Sodium Level 132 Potassium Level 4.7 Chloride Level 95 Carbon Dioxide Level 32.7 Anion Gap 4 Blood Urea Nitrogen 7 Creatinine 0.60 Estimat Glomerular Filtration 98 Rate Random Glucose 89 Calcium Level 8.8 Phosphorus Level 2.8 Magnesium Level 1.9 Total Bilirubin 3.8 Aspartate Amino Transf 69 (AST/SGOT) Alanine Aminotransferase 97 (ALT/SGPT) Alkaline Phosphatase 48 Total Protein 5.7 Albumin 2.7 Imaging Last Impressions GI Procedure 06/14/16 0000 Signed Impressions: Service Date/Time: June 13:43 - CONCLUSION: ERCP as above. Please refer to senior market research analyst report for further description. Haseeb Merida MD Chest X-Ray 06/13/161751 Signed Impressions: Service Date/Time: Monday, June 13, 2016 17:55 - CONCLUSION: Hyperexpanded lungs and mild bibasilar atelectasis. Haseeb Wall MD Abdomen/Pelvis CT 06/13/161751 Signed Impressions: Service Date/Time: Monday, June 13, 2016 18:31 - CONCLUSION: 1. Cholelithiasis and choledocholithiasis. Numerous small stones seen in the gallbladder, cystic duct and upper common bile duct. No perceptible acute inflammatory changes or definite acute obstruction. I don't see a stone in the lower duct or ampullary region. 2. No renal stones or obstructive uropathy. Small cyst of the right kidney. 3. Small cysts of the liver. 4. Aortoiliac atherosclerosis. No aneurysm. 5. Degenerative changes of the spine, sacroiliac joints and both hips. Compression deformity of the L5 vertebral body appears to be chronic. Haseeb Wall MD Physical Exam HEENT: EOMI; normocephalic; atraumatic; no jaundice. NECK: Neck is supple CHEST: Wheezes throughout CARDIAC: Regular rate and rhythm with no murmur gallop or rubs. ABDOMEN: Soft, nondistended, nontender; no hepatosplenomegaly; bowel sounds are present in all four quadrants. EXTREMITIES: No clubbing, cyanosis, or edema. SKIN: Normal; no rash; no jaundice. ASSISTANT OFFSET PRESS OPERATOR: No focal deficits; alert and oriented times three. Assessment and Plan Plan ASSESSMENT: - Cholelithiasis/Choledocholithiasis. Pain improved. s/p ERCP and EGD w/ dilation --> mild duodenitis, dilation, normal EGD otherwise. CT scan of the abdomen and pelvis without IV contrast (06/13/16)-----> 1. Cholelithiasis and choledocholithiasis. Numerous small stones seen in the gallbladder, cystic duct and upper common bile duct. No perceptible acute inflammatory changes or definite acute obstruction. I don't see a stone in the lower duct or ampullary region. 2. No renal stones or obstructive uropathy. Small cyst of the right kidney. 3. Small cysts of the liver. 4. Aortoiliac atherosclerosis. No aneurysm. 5. Degenerative changes of the spine, sacroiliac joints and both hips. Compression deformity of the L5 vertebral body appears to be chronic. WBC 4.0, Total bilirubin 0.4, AST 53, ALT 37, alkaline phosphatase 41. Zosyn. - Dysphagia, Foreign body esophagus. s/p EGD with dilation, no foreign body found No prior issues with this. Was eating chicken and [place]ian fries from [employer] yesterday evening when a piece of chicken became lodged in her upper esophagus. Initially, she states she was not able to get anything down, but states this has since improved. - Leukocytosis. WBC 18.0. Zosyn. - COPD/ONOFRE. Per primary PLAN: - CANELO - Cont. IVF - Cont. Zosyn - Cont PPI - may resume heparin - Monitor labs - Supportive care - Pt seen and examined by Dr. Beltran and myself and this note is written on his behalf Emily Villagomez Jun 15, 2016 16:43
--- NOTE | 2016-06-15 19:54 | MR ---
cc: AMADOR DASILVA M.D. DATE: 06/14/2016. PROCEDURE PERFORMED: ERCP with sphincterotomy and dilation of the ampulla and stone removal. INDICATIONS FOR THE PROCEDURE: A 75-year-old lady who has multiple common bile duct stones on imaging. DESCRIPTION OF THE PROCEDURE IN DETAIL: After informing the patient about the procedure and complications, consent was signed. The patient was placed on her left lateral decubitus and adequate sedation was achieved by propofol and intubation was performed by anesthesia. The ERCP scope was placed in the mouth and advanced under video guidance to the second portion of the duodenum. The ampulla was identified. There was a small periampullary diverticulum. Cannulation was performed. Cholangiogram showed multiple stones and filling defects in the common bile duct. Sphincterotomy was done. Sweeping the duct with balloon was difficult at the beginning because of the size of the stones. Dilation of the ampulla was done with the balloon size 12 and 50 mm and then sweeping of the duct with the balloon revealed seven stones and sludge. The duct was flushed with more sludge coming out and then end of case cholangiogram was negative for filling defects. The patient tolerated procedure well without immediate complication. FINDINGS: Common bile duct stone status post sphincterotomy, ampulla dilation and stone removal. RECOMMENDATIONS: 1. The patient will be NPO until the morning. 2. Liver function tests in the morning. 3. Further plan depends on how the patient is doing. MD NERI Fuller/RICO /3:00 PM /7:38 PM
[2016-06-15] MEDS: MONTELUKAST SODIUM 10 MG TAB PO SCH (21:31)
[2016-06-15] MEDS: HEPARIN SODIUM - SQ 10,000 UNITS/ML VIAL SQ SCH (22:32)
[2016-06-16] VITALS (8 sets, daily range): BP systolic 141–181; BP diastolic 66–75; PULSE 63–82; RESP 18–20; TEMP 96–99.5; O2SAT 96–99
[2016-06-16] MEDS: SODIUM CHLOR 0.9% 1000 ML INJ 1,000 ML IV SCH ×3 (00:07→20:36)
[2016-06-16] MEDS: PIPERACIL-TAZO 3.375 GM PREMIX 50 ML IV SCH ×3 (02:38→15:31)
[2016-06-16] MEDS: ENALAPRILAT 1.25 MG/ML VIAL IV PUSH PRN (06:15)
[2016-06-16] MEDS: PANTOPRAZOLE SODIUM 40 MG VIAL IV PUSH SCH (09:43)
[2016-06-16] MEDS: FLUoxetine HCL 20 MG CAP PO SCH (09:43)
[2016-06-16] MEDS: BUDESONIDE-FORMOTEROL 160/4.5 MCG INHALER INH SCH ×2 (09:44→20:36)
[2016-06-16] MEDS: GABAPENTIN 100 MG CAP PO SCH ×2 (09:44→20:35)
[2016-06-16] MEDS: METOPROLOL TARTRATE 50 MG TAB PO SCH ×2 (09:44→20:36)
[2016-06-16] MEDS: HEPARIN SODIUM - SQ 10,000 UNITS/ML VIAL SQ SCH ×2 (09:52→20:35)
[2016-06-16 10:16] LABS: HEMATOCRIT 36.9 % (35.0-46.0); MEAN CELL VOLUME 93.4 FL (80.0-100.0); MEAN CORPUSCULAR HGB CONC 32.1 % (32.0-36.0); PLATELET COUNT 121 TH/MM3 (150-450); RED BLOOD COUNT 3.95 MIL/MM3 (4.00-5.30); RED CELL DISTRIBUTION WIDTH 13.7 % (11.6-17.2); REVIEW FLAG FINAL
[2016-06-16 10:58] LABS: ALKALINE PHOSPHATASE 44 U/L (45-117); ALT (GPT) 60 U/L (10-53); ANION GAP 8 MEQ/L (5-15); AST (GOT) 28 U/L (15-37); BICARBONATE 28.5 MEQ/L (21.0-32.0); BLOOD UREA NITROGEN 9 MG/DL (7-18); CHLORIDE 100 MEQ/L (98-107); GLOMERULAR FILTRATION RATE 177 ML/MIN (>89); POTASSIUM 3.8 MEQ/L (3.5-5.1); SODIUM (NA) 136 MEQ/L (136-145)
--- NOTE | 2016-06-16 16:57 | HHI.GIFU ---
Subjective Remarks Patient is resting in bed doing good, no nausea, or vomiting. Tolerating diet okay. Still with mild abdomen pain. Objective Vitals I&O Vital Signs Date Time Temp Pulse Resp B/P Pulse Ox O2 Delivery O2 Flow Rate FiO2 06/16/16 16:30 99.5 73 20 155/75 98 06/16/16 13:12 98.6 77 20 181/75 99 06/16/16 11:29 98 Nasal Cannula 2.00 06/16/16 08:00 98.6 77 20 144/66 98 06/16/16 04:00 96.0 63 18 161/70 98 06/16/16 00:00 99.0 74 18 148/69 96 06/15/16 23:17 98 Nasal Cannula 3.00 06/15/16 20:00 98.9 84 18 177/72 98 I/O 06/15/16 06/15/16 06/15/16 06/16/16 06/16/16 06/16/16 07:00 15:00 23:00 07:00 15:00 23:00 Intake Total 888 ml 0 ml 0 ml 360 ml Balance 888 ml 0 ml 0 ml 360 ml Intake Oral 0 ml 0 ml 0 ml 360 ml IV Total 888 ml # Voids 4 3 1 1 2 # Bowel Movements 0 0 0 Laboratory Laboratory Tests Test 06/16/16 09:40 White Blood Count 11.0 Red Blood Count 3.95 Hemoglobin 11.8 Hematocrit 36.9 Mean Corpuscular Volume 93.4 Mean Corpuscular Hemoglobin 30.0 Mean Corpuscular Hemoglobin 32.1 Concent Red Cell Distribution Width 13.7 Platelet Count 121 Mean Platelet Volume 8.0 Sodium Level 136 Potassium Level 3.8 Chloride Level 100 Carbon Dioxide Level 28.5 Anion Gap 8 Blood Urea Nitrogen 9 Creatinine 0.36 Estimat Glomerular Filtration 177 Rate Random Glucose 57 Calcium Level 8.3 Total Bilirubin 1.0 Aspartate Amino Transf 28 (AST/SGOT) Alanine Aminotransferase 60 (ALT/SGPT) Alkaline Phosphatase 44 Total Protein 5.0 Albumin 2.3 Imaging Last Impressions GI Procedure 06/14/16 0000 Signed Impressions: Service Date/Time: June 13:43 - CONCLUSION: ERCP as above. Please refer to deep tissue massage therapist report for further description. Haseeb Merida MD Chest X-Ray 06/13/161751 Signed Impressions: Service Date/Time: Monday, June 13, 2016 17:55 - CONCLUSION: Hyperexpanded lungs and mild bibasilar atelectasis. Haseeb Wall MD Abdomen/Pelvis CT 06/13/161751 Signed Impressions: Service Date/Time: Monday, June 13, 2016 18:31 - CONCLUSION: 1. Cholelithiasis and choledocholithiasis. Numerous small stones seen in the gallbladder, cystic duct and upper common bile duct. No perceptible acute inflammatory changes or definite acute obstruction. I don't see a stone in the lower duct or ampullary region. 2. No renal stones or obstructive uropathy. Small cyst of the right kidney. 3. Small cysts of the liver. 4. Aortoiliac atherosclerosis. No aneurysm. 5. Degenerative changes of the spine, sacroiliac joints and both hips. Compression deformity of the L5 vertebral body appears to be chronic. Haseeb Wall MD Physical Exam HEENT: EOMI; normocephalic; atraumatic; no jaundice. NECK: Neck is supple CHEST: Wheezes throughout CARDIAC: Regular rate and rhythm with no murmur gallop or rubs. ABDOMEN: Soft, nondistended, mild tenderness on the right side of abdomen; no hepatosplenomegaly; bowel sounds are present in all four quadrants. EXTREMITIES: No clubbing, cyanosis, or edema. SKIN: Normal; no rash; no jaundice. JDE DEVELOPER: No focal deficits; alert and oriented times three. Assessment and Plan Plan ASSESSMENT: - Cholelithiasis/Choledocholithiasis. LFTs trending down. Pain improved. s/p ERCP and EGD w/ dilation --> mild duodenitis, dilation, normal EGD otherwise. CT scan of the abdomen and pelvis without IV contrast (06/13/16)-----> 1. Cholelithiasis and choledocholithiasis. Numerous small stones seen in the gallbladder, cystic duct and upper common bile duct. No perceptible acute inflammatory changes or definite acute obstruction. I don't see a stone in the lower duct or ampullary region. 2. No renal stones or obstructive uropathy. Small cyst of the right kidney. 3. Small cysts of the liver. 4. Aortoiliac atherosclerosis. No aneurysm. 5. Degenerative changes of the spine, sacroiliac joints and both hips. Compression deformity of the L5 vertebral body appears to be chronic. Zosyn. - Dysphagia, Foreign body esophagus. s/p EGD with dilation, no foreign body found No prior issues with this. Was eating chicken and malagasy fries from [email or web address] when a piece of chicken became lodged in her upper esophagus. Initially, she states she was not able to get anything down, but states this has since improved. - Leukocytosis. Resolved WBC 11. Zosyn. - COPD/ONOFRE. Per primary PLAN: - CANELO - GS consult - Cont. Zosyn - Cont PPI - Monitor labs - Supportive care - Pt seen and examined by Dr. Beltran and myself and this note is written on his behalf Yahir Vasquez Jun 16, 2016 16:57
--- NOTE | 2016-06-16 17:45 | HHI.PR ---
Subjective Interval History Alert, oriented, eating without problems, no abdominal pain at this time, ambulating inside her room Review of Systems Constitutional Constitutional Remarks As above, 10 systems reviewed and otherwise negative Vitals/Results Intake & Output 06/15/16 06/15/16 06/16/16 15:00 23:00 07:00 Intake Total 0 ml 0 ml Balance 0 ml 0 ml Intake Oral 0 ml 0 ml # Voids 3 1 1 # Bowel Movements 0 0 Vital Signs Vital Signs Date Time Temp Pulse Resp B/P Pulse Ox O2 Delivery O2 Flow Rate FiO2 06/16/16 16:30 99.5 73 20 155/75 98 06/16/16 13:12 98.6 77 20 181/75 99 06/16/16 11:29 98 Nasal Cannula 2.00 06/16/16 08:00 98.6 77 20 144/66 98 06/16/16 04:00 96.0 63 18 161/70 98 06/16/16 00:00 99.0 74 18 148/69 96 06/15/16 23:17 98 Nasal Cannula 3.00 06/15/16 20:00 98.9 84 18 177/72 98 CBC/BMP: 06/16/16 0940 06/16/16 0940 Lab Results Laboratory Tests Test 06/16/16 09:40 White Blood Count 11.0 TH/MM3 Red Blood Count 3.95 MIL/MM3 Hemoglobin 11.8 GM/DL Hematocrit 36.9 % Mean Corpuscular Volume 93.4 FL Mean Corpuscular Hemoglobin 30.0 PG Mean Corpuscular Hemoglobin 32.1 % Concent Red Cell Distribution Width 13.7 % Platelet Count 121 TH/MM3 Mean Platelet Volume 8.0 FL Sodium Level 136 MEQ/L Potassium Level 3.8 MEQ/L Chloride Level 100 MEQ/L Carbon Dioxide Level 28.5 MEQ/L Anion Gap 8 MEQ/L Blood Urea Nitrogen 9 MG/DL Creatinine 0.36 MG/DL Estimat Glomerular Filtration 177 ML/MIN Rate Random Glucose 57 MG/DL Calcium Level 8.3 MG/DL Total Bilirubin 1.0 MG/DL Aspartate Amino Transf 28 U/L (AST/SGOT) Alanine Aminotransferase 60 U/L (ALT/SGPT) Alkaline Phosphatase 44 U/L Total Protein 5.0 GM/DL Albumin 2.3 GM/DL Physical Exam General General Appearance: Well Developed, No Acute Distress Eyes Eye Exam: Pupils Reactive Ears & Nose Ears & Nose Exam: Nasal Mucosa [place] Throat Throat Exam: Oral Mucosa [place] & Moist Neck Neck Exam: Trachea Midline Pulmonary Resp Exam: Breath Sounds Equal, No Distress Cardiology CV Exam: Normal Sinus Rhythm, Good Perfusion Gastrointestinal/Abdomen GI Exam: Non-Tender, Bowel Sounds Present Musculoskeletal MS Exam: Normal Tone, Good Strength Integumentary Skin Exam: Warm, Dry Neurologic Neuro Exam: Alert, Awake, Oriented, Speech Clear, Moving All Extremities Psychiatric Psych Exam: Appropriate Responses Elzbieta Neff MD Jun 16, 2016 17:45
--- NOTE | 2016-06-16 17:48 | HHI.PR ---
Subjective Interval History Alert, oriented, denies complaints, feeling much better, eating without problems Review of Systems Constitutional Constitutional Remarks As above, 10 systems reviewed and otherwise negative Vitals/Results Intake & Output 06/15/16 06/15/16 06/16/16 15:00 23:00 07:00 Intake Total 0 ml 0 ml Balance 0 ml 0 ml Intake Oral 0 ml 0 ml # Voids 3 1 1 # Bowel Movements 0 0 Vital Signs Vital Signs Date Time Temp Pulse Resp B/P Pulse Ox O2 Delivery O2 Flow Rate FiO2 06/16/16 16:30 99.5 73 20 155/75 98 06/16/16 13:12 98.6 77 20 181/75 99 06/16/16 11:29 98 Nasal Cannula 2.00 06/16/16 08:00 98.6 77 20 144/66 98 06/16/16 04:00 96.0 63 18 161/70 98 06/16/16 00:00 99.0 74 18 148/69 96 06/15/16 23:17 98 Nasal Cannula 3.00 06/15/16 20:00 98.9 84 18 177/72 98 CBC/BMP: 06/16/16 0940 06/16/16 0940 Lab Results Laboratory Tests Test 06/16/16 09:40 White Blood Count 11.0 TH/MM3 Red Blood Count 3.95 MIL/MM3 Hemoglobin 11.8 GM/DL Hematocrit 36.9 % Mean Corpuscular Volume 93.4 FL Mean Corpuscular Hemoglobin 30.0 PG Mean Corpuscular Hemoglobin 32.1 % Concent Red Cell Distribution Width 13.7 % Platelet Count 121 TH/MM3 Mean Platelet Volume 8.0 FL Sodium Level 136 MEQ/L Potassium Level 3.8 MEQ/L Chloride Level 100 MEQ/L Carbon Dioxide Level 28.5 MEQ/L Anion Gap 8 MEQ/L Blood Urea Nitrogen 9 MG/DL Creatinine 0.36 MG/DL Estimat Glomerular Filtration 177 ML/MIN Rate Random Glucose 57 MG/DL Calcium Level 8.3 MG/DL Total Bilirubin 1.0 MG/DL Aspartate Amino Transf 28 U/L (AST/SGOT) Alanine Aminotransferase 60 U/L (ALT/SGPT) Alkaline Phosphatase 44 U/L Total Protein 5.0 GM/DL Albumin 2.3 GM/DL Physical Exam General General Appearance: Well Developed, No Acute Distress Eyes Eye Exam: Pupils Reactive Ears & Nose Ears & Nose Exam: Nasal Mucosa [place] Throat Throat Exam: Oral Mucosa [place] & Moist Neck Neck Exam: Trachea Midline Pulmonary Resp Exam: Breath Sounds Equal, No Distress Cardiology CV Exam: Normal Sinus Rhythm, Good Perfusion Gastrointestinal/Abdomen GI Exam: Non-Tender, Bowel Sounds Present Musculoskeletal MS Exam: Normal Tone, Good Strength Integumentary Skin Exam: Warm, Dry Neurologic Neuro Exam: Alert, Awake, Oriented, Speech Clear, Moving All Extremities Psychiatric Psych Exam: Appropriate Responses Assessment/Plan Assessment/Plan Diagnosis: Admitted with left flank pain Dysphagia Leukocytosis, resolved No blood sugar at times mild common bile duct dilatation Choledocholithiasis, status post EGD on 06/14/16, showing esophageal stricture and duodenitis, biopsies taken Status post ERCP with sphincterectomy with validation of the ampulla and removal of stones Postoperative elevation in liver enzymes which has resolved Aortoiliac atherosclerosis Chronic L5 compression History of COPD, obstructive sleep apnea and reflux disease Plan Pain control Advance diet Proton pump inhibitor Ambulate Empiric antibiotics discontinued Possible discharge tomorrow Follow-up with GI as outpatient next week Discussed with patient Discussed with nurse 35 minutes Elzbieta Neff MD Jun 16, 2016 17:48 have now resolved -Nothing by mouth Status post EGD with esophageal dilatation, no foreign body noted -Monitor for aspiration COPD, stable Oxygen at 2 L Duo nebs when necessary -Resume Symbicort GERD Continue PPI SCDs for DVT prophylaxis PPI for GI prophylaxis Continue with pain management and antiemetics when necessary, remains nothing by mouth per GI recommendations. Repeat labs in a.m. D/W RN D/W pt. Elzbieta Neff MD Jun 16, 2016 17:48
[2016-06-16] MEDS: MONTELUKAST SODIUM 10 MG TAB PO SCH (20:36)
--- NOTE | 2016-06-16 21:50 | MB ---
cc: YUKI CORONEL MD DATE OF CONSULTATION 06/16/16 REASON FOR CONSULTATION Gallstones. HISTORY OF PRESENT ILLNESS The patient is a very pleasant 75-year-old female who is admitted with left flank and back pain. The patient underwent workup and was found to have common duct stones. She underwent ERCP on 06/14/2016. She had a sphincterotomy dilatation of the ampulla and stone removal. Multiple defects were removed. She is now on a heart healthy diet. We have been asked to see the patient for consideration for cholecystectomy. PAST MEDICAL HISTORY 1. Atrial fibrillation with RVR in the past with cardioversion 2. Asthma 3. Oxygen dependent COPD, 4. Coronary artery disease, 5. GE reflux disease, 6. Hypertension 7. Body pain from compression fractures of the vertebrae. 8. History of C-sections in the past. 9. Cervical fusion in the past. SOCIAL HISTORY The patient quit smoking six years ago and has an over 50 pack-year smoking history. MEDICATIONS Current 1. Omeprazole 40 mg daily. 2. Percocet 10 one to two every day 3. Fluoxetine 40 mg daily 4. Montelukast 10 mg p.o. q.h.s. 5. Gabapentin 100 mg b.i.d. 6. DuoNebs q.4 h as needed. The patient states she does not need used these very often. 7. Ventolin inhalers 2 puffs q.4 h p.r.n. 8. Symbicort 160/4.5 1 puff b.i.d. p.r.n. 9. Metoprolol 50 mg p.o. b.i.d. PHYSICAL EXAMINATION GENERAL: A female in no acute distress. VITAL SIGNS: BP 155/75, pulse 73, respirations 20, temperature 99.5, 98% sat on 2 liters nasal cannula. HEENT:; Patient is edentulous. Pupils are equal. NECK: Supple. CHEST: Clear to auscultation bilaterally. CARDIAC: Regular rate and rhythm without murmurs. ABDOMEN: Soft and nontender. There is a well-healed Pfannenstiel incision. There are no hernias noted. EXTREMITIES: Pulses are present. NEUROLOGIC: Exam is grossly nonfocal with sensory motor exam grossly nonfocal. LABORATORY DATA WBCs of 11.0 which is down from 18,000 yesterday. Platelets are 121,000 which is down from 219,000. BUN and creatinine are nine and 0.36. Liver function test - bilirubin is 0.5, AST 28, ALT 60, alkaline phosphatase 44. IMAGING STUDIES CT of the abdomen and pelvis on the demonstrated numerous stones in the gallbladder, cystic duct and upper common bile duct. ASSESSMENT Choledocholithiasis status post ERCP. The patient still has cholelithiasis. I have discussed with the patient surgical intervention. As she has oxygen-dependent COPD, she is at a fairly high risk for problems and complications as an outpatient. I have recommended she stay in the hospital to have surgery. I am attempting to obtain time Saturday morning (inn 48 hours) so that she can have surgery, stay overnight and return home on Saturday provided that she has no medical problems. She is agreeable to this. We discussed risks of surgery with increased risk of pneumonia, risk of VT and risk of stroke as well as surgical risks including but not limited to bleeding, infection, bile duct injury, bowel injury, possible need for ERCP once again postoperatively, drainage, adhesion formation, and need for reoperation. We discussed remedies, consequences, alternatives, convalescence; she vocalizes understanding and is agreeable to staying to have surgery on Saturday. She will continue on her diet tomorrow and be made n.p.o. after midnight. MD BELTRAN Myers/ /8:58 PM /9:33 PM
[2016-06-17] VITALS (7 sets, daily range): BP systolic 132–183; BP diastolic 62–84; PULSE 74–88; RESP 18–20; TEMP 97.7–99.5; O2SAT 92–99
[2016-06-17] MEDS: SODIUM CHLOR 0.9% 1000 ML INJ 1,000 ML IV SCH ×2 (05:25→13:28)
[2016-06-17] MEDS: BUDESONIDE-FORMOTEROL 160/4.5 MCG INHALER INH SCH ×2 (09:00→20:58)
[2016-06-17] MEDS: GABAPENTIN 100 MG CAP PO SCH ×2 (09:42→20:57)
[2016-06-17] MEDS: PANTOPRAZOLE SOD 40 MG DELAYED RELEASE TAB PO SCH (09:42)
[2016-06-17] MEDS: METOPROLOL TARTRATE 50 MG TAB PO SCH ×2 (09:42→20:57)
[2016-06-17] MEDS: HEPARIN SODIUM - SQ 10,000 UNITS/ML VIAL SQ SCH ×2 (09:42→20:58)
[2016-06-17] MEDS: FLUoxetine HCL 20 MG CAP PO SCH (09:42)
[2016-06-17] MEDS: ACETAMINOPHEN/HYDROcodone 325 MG/7.5 MG TAB PO PRN (13:27)
--- NOTE | 2016-06-17 14:43 | HHI.PR ---
Subjective Subjective Notes DAILY PROGRESS NOTE FOR SURGICAL ATTENDING, DR. DARRIAN SWANN Patient sitting up in the chair She is ready for surgery whenever he can be scheduled She didn't have any questions about plan laparoscopic cholecystectomy Objective Vitals/I&O Vital Signs Date Time Temp Pulse Resp B/P Pulse Ox O2 Delivery O2 Flow Rate FiO2 06/17/16 12:24 99.5 74 20 132/72 98 06/17/16 10:48 Nasal Cannula 2.00 Labs Vital Signs Date Time Temp Pulse Resp B/P Pulse Ox O2 Delivery O2 Flow Rate FiO2 06/17/16 12:24 99.5 74 20 132/72 98 06/17/16 10:48 Nasal Cannula 2.00 I/O 06/17/16 00:00 Intake Total 360 ml Balance 360 ml Laboratory Tests Test 06/13/16 06/13/16 06/14/16 06/15/16 18:00 19:25 07:13 07:01 Prothrombin Time 10.3 SEC Prothromb Time International 0.9 RATIO Ratio Activated Partial 23.0 SEC Thromboplast Time Lipase 192 U/L Urine Color STRAW Urine Turbidity HAZY Urine pH 5.5 Urine Specific [place] 1.016 Urine Protein 30 mg/dL Urine Glucose (UA) 100 mg/dL Urine Ketones NEG mg/dL Urine Occult Blood MOD Urine Nitrite NEG Urine Bilirubin NEGATIVE Urine Urobilinogen 0.2 MG/DL Urine Leukocyte Esterase SMALL Urine RBC 0-3 /hpf Urine WBC 3-5 /hpf Urine Squamous Epithelial 6-8 /hpf Cells Urine Bacteria OCC /hpf Microscopic Urinalysis Comment Direct Bilirubin 0.1 MG/DL Indirect Bilirubin 0.5 MG/DL Neutrophils (%) (Auto) 83.9 % Lymphocytes (%) (Auto) 4.3 % Monocytes (%) (Auto) 9.2 % Eosinophils (%) (Auto) 2.2 % Basophils (%) (Auto) 0.4 % Neutrophils # (Auto) 15.1 TH/MM3 Lymphocytes # (Auto) 0.8 TH/MM3 Monocytes # (Auto) 1.7 TH/MM3 Eosinophils # (Auto) 0.4 TH/MM3 Basophils # (Auto) 0.1 TH/MM3 CBC Comment DIFF FINAL Differential Comment Phosphorus Level 2.8 MG/DL Magnesium Level 1.9 MG/DL Test 06/16/16 09:40 White Blood Count 11.0 TH/MM3 Red Blood Count 3.95 MIL/MM3 Hemoglobin 11.8 GM/DL Hematocrit 36.9 % Mean Corpuscular Volume 93.4 FL Mean Corpuscular Hemoglobin 30.0 PG Mean Corpuscular Hemoglobin 32.1 % Concent Red Cell Distribution Width 13.7 % Platelet Count 121 TH/MM3 Mean Platelet Volume 8.0 FL Sodium Level 136 MEQ/L Potassium Level 3.8 MEQ/L Chloride Level 100 MEQ/L Carbon Dioxide Level 28.5 MEQ/L Anion Gap 8 MEQ/L Blood Urea Nitrogen 9 MG/DL Creatinine 0.36 MG/DL Estimat Glomerular Filtration 177 ML/MIN Rate Random Glucose 57 MG/DL Calcium Level 8.3 MG/DL Total Bilirubin 1.0 MG/DL Aspartate Amino Transf 28 U/L (AST/SGOT) Alanine Aminotransferase 60 U/L (ALT/SGPT) Alkaline Phosphatase 44 U/L Total Protein 5.0 GM/DL Albumin 2.3 GM/DL Cardiovascular: Regular Lungs: Clear Abdomen: Non-distended, Non-tender Extremities: Perfused A/P Problem List: (1) Gallstones (2) Status post endoscopic retrograde cholangiopancreatography (3) Choledocholithiasis (4) Hyperkalemia (5) Anemia Assessment and Plan 75-year-old white female status post ERCP to clear choledocholithiasis Dr. Mckeon to plan operative intervention Saturday when times available the operating room Discussed with the patient plan laparoscopic cholecystectomy she appeared to understand Orders written for nothing by mouth after midnight Consent for laps cholecystectomy Hold heparin Attending Statement NOTE FOR SURGICAL ATTENDING, DR. DARRIAN SWANN I attest that I had a [id number] encounter with the patient on the same day, and personally performed and documented my assessment and findings in the medical record. The following services were provided during this hospital visit: Chart data review, vital sign assessments/reviewing monitor data Review of consultations notes if present. Medication orders/review and/or management Ordering and/or reviewing lab tests Ordering and/or interpreting/reviewing x-rays and/or diagnostic studies Care of the patient and discussion of the patient with the care team Documentation time To help prompt me to consider important information that might be impacting today's encounter and assessment, information from prior notes written by myself or my colleagues may have been "brought forward/copy and pasted" into today's note. Darrian Swann MD Jun 17, 2016 14:43
--- NOTE | 2016-06-17 15:52 | HHI.GIFU ---
Subjective Remarks Patient is resting in bed, denies nausea, vomiting or abdomen pain. She is having cholecystectomy planned for tomorrow Objective Vitals I&O Vital Signs Date Time Temp Pulse Resp B/P Pulse Ox O2 Delivery O2 Flow Rate FiO2 06/17/16 12:24 99.5 74 20 132/72 98 06/17/16 10:48 92 Nasal Cannula 2.00 06/17/16 08:28 99.2 82 20 183/84 97 06/17/16 04:43 98.4 81 20 148/67 99 06/17/16 00:34 97.8 79 20 142/62 99 06/16/16 21:02 99.1 82 19 141/66 97 06/16/16 19:00 98 Nasal Cannula 3.00 06/16/16 17:53 98 Nasal Cannula 2.00 06/16/16 16:30 99.5 73 20 155/75 98 I/O 06/16/16 06/16/16 06/16/16 06/17/16 06/17/16 06/17/16 07:00 15:00 23:00 07:00 15:00 23:00 Intake Total 0 ml 360 ml 2494 ml Balance 0 ml 360 ml 2494 ml Intake Oral 0 ml 360 ml 480 ml IV Total 2014 ml # Voids 1 2 3 # Bowel Movements 0 1 Imaging Last Impressions GI Procedure 06/14/16 0000 Signed Impressions: Service Date/Time: June 13:43 - CONCLUSION: ERCP as above. Please refer to director of integrated marketing report for further description. Haseeb Merida MD Chest X-Ray 06/13/161751 Signed Impressions: Service Date/Time: Monday, June 13, 2016 17:55 - CONCLUSION: Hyperexpanded lungs and mild bibasilar atelectasis. Haseeb Wall MD Abdomen/Pelvis CT 06/13/161751 Signed Impressions: Service Date/Time: Monday, June 13, 2016 18:31 - CONCLUSION: 1. Cholelithiasis and choledocholithiasis. Numerous small stones seen in the gallbladder, cystic duct and upper common bile duct. No perceptible acute inflammatory changes or definite acute obstruction. I don't see a stone in the lower duct or ampullary region. 2. No renal stones or obstructive uropathy. Small cyst of the right kidney. 3. Small cysts of the liver. 4. Aortoiliac atherosclerosis. No aneurysm. 5. Degenerative changes of the spine, sacroiliac joints and both hips. Compression deformity of the L5 vertebral body appears to be chronic. Haseeb Wall MD Physical Exam HEENT: EOMI; normocephalic; atraumatic; no jaundice. NECK: Neck is supple CHEST: Wheezes throughout CARDIAC: Regular rate and rhythm with no murmur gallop or rubs. ABDOMEN: Soft, nondistended, mild tenderness on the right side of abdomen; no hepatosplenomegaly; bowel sounds are present in all four quadrants. EXTREMITIES: No clubbing, cyanosis, or edema. SKIN: Normal; no rash; no jaundice. GRINDER GEAR: No focal deficits; alert and oriented times three. Assessment and Plan Plan ASSESSMENT: - Cholelithiasis/Choledocholithiasis. LFTs trending down. Pain improved. s/p ERCP and EGD w/ dilation(06/14/16) --> mild duodenitis, dilation, normal EGD otherwise. CBD stones s/p sphincterotomy ampulla dilatation and stone removal CT scan of the abdomen and pelvis without IV contrast (06/13/16)-----> 1. Cholelithiasis and choledocholithiasis. Numerous small stones seen in the gallbladder, cystic duct and upper common bile duct. No perceptible acute inflammatory changes or definite acute obstruction. I don't see a stone in the lower duct or ampullary region. 2. No renal stones or obstructive uropathy. Small cyst of the right kidney. 3. Small cysts of the liver. 4. Aortoiliac atherosclerosis. No aneurysm. 5. Degenerative changes of the spine, sacroiliac joints and both hips. Compression deformity of the L5 vertebral body appears to be chronic. Zosyn. - Cholelithiasis- GS on the case, cholecystectomy planed for tomorrow - Dysphagia, Foreign body esophagus. s/p EGD with dilation, no foreign body found No prior issues with this. Was eating chicken and maltese fries from [employer] when a piece of chicken became lodged in her upper esophagus. Initially, she states she was not able to get anything down, but states this has since improved. - Leukocytosis. Resolved WBC 11. Zosyn. - COPD/ONOFRE. Per primary PLAN: - Will defer to GS for diet - Cholecystectomy planned for tomorrow - GI will sign off - F/u with GI in 2 weeks - Monitor labs - Supportive care - Pt seen and examined by Dr. Beltran and myself and this note is written on his behalf Yahir Vasquez Jun 17, 2016 15:52
--- NOTE | 2016-06-17 18:12 | HHI.PR ---
Subjective Interval History Alert, oriented, denies complaints Review of Systems Constitutional Constitutional Remarks As above, 10 systems reviewed and otherwise negative Vitals/Results Intake & Output 06/16/16 06/16/16 06/17/16 15:00 23:00 07:00 Intake Total 360 ml 2494 ml Balance 360 ml 2494 ml Intake Oral 360 ml 480 ml IV Total 2014 ml # Voids 2 3 # Bowel Movements 1 Vital Signs Vital Signs Date Time Temp Pulse Resp B/P Pulse Ox O2 Delivery O2 Flow Rate FiO2 06/17/16 17:23 97.7 74 20 158/73 93 06/17/16 12:24 99.5 74 20 132/72 98 06/17/16 10:48 92 Nasal Cannula 2.00 06/17/16 08:28 99.2 82 20 183/84 97 06/17/16 04:43 98.4 81 20 148/67 99 06/17/16 00:34 97.8 79 20 142/62 99 06/16/16 21:02 99.1 82 19 141/66 97 06/16/16 19:00 98 Nasal Cannula 3.00 CBC/BMP: 06/16/16 0940 06/16/16 0940 Physical Exam General General Appearance: Well Developed, No Acute Distress Eyes Eye Exam: Pupils Reactive Ears & Nose Ears & Nose Exam: Nasal Mucosa [place] Throat Throat Exam: Oral Mucosa [place] & Moist Neck Neck Exam: Trachea Midline Pulmonary Resp Exam: Breath Sounds Equal, No Distress Cardiology CV Exam: Normal Sinus Rhythm, Good Perfusion Gastrointestinal/Abdomen GI Exam: Non-Tender, Bowel Sounds Present Musculoskeletal MS Exam: Normal Tone, Good Strength Integumentary Skin Exam: Warm, Dry Neurologic Neuro Exam: Alert, Awake, Oriented, Speech Clear, Moving All Extremities Psychiatric Psych Exam: Appropriate Responses Assessment/Plan Assessment/Plan Diagnosis: Cholelithiasis Admitted with left flank pain Dysphagia Leukocytosis, resolved No blood sugar at times mild common bile duct dilatation Choledocholithiasis, status post EGD on 06/14/16, showing esophageal stricture and duodenitis, biopsies taken Status post ERCP with sphincterectomy with validation of the ampulla and removal of stones Postoperative elevation in liver enzymes which has resolved Aortoiliac atherosclerosis Chronic L5 compression History of COPD, obstructive sleep apnea and reflux disease Plan Cholecystectomy tomorrow Pain control Proton pump inhibitor Follow-up with GI as outpatient next week Discussed with patient Discussed with nurse 35 minutes Elzbieta Neff MD Jun 17, 2016 18:12
[2016-06-17] MEDS: MONTELUKAST SODIUM 10 MG TAB PO SCH (20:57)
[2016-06-18] MEDS: SODIUM CHLOR 0.9% 1000 ML INJ 1,000 ML IV SCH ×2 (00:06→21:26)
[2016-06-18 00:50] VITALS: BP 164/78; PULSE 82; RESP 18; TEMP 97.5; O2SAT 98
[2016-06-18 04:00] VITALS: BP 192/87; PULSE 81; RESP 20; TEMP 98.4; O2SAT 96
[2016-06-18] MEDS ORDERED: CHLORHEXIDINE GLUCONATE 2 % 1 PACK (2 CLOTHS) TOPICAL PRN (05:00)
[2016-06-18] MEDS ORDERED: SODIUM CHLORID 0.9% 500 ML IV PRN (05:00)
[2016-06-18] MEDS ORDERED: POVIDONE IODINE 5% (ANTISEPSIS KIT) 4 APPLICATIONS EACH NARE PRN (05:00)
[2016-06-18] MEDS ORDERED: INSULIN HUMAN REGULAR 1,000 UNITS/10 ML VIAL SQ PRN (05:00)
[2016-06-18] MEDS ORDERED: LACTATED RINGER'S 1000 ML IV PRN (05:00)
[2016-06-18] MEDS: ENALAPRILAT 1.25 MG/ML VIAL IV PUSH PRN (05:21)
[2016-06-18 07:30] VITALS: BP 160/74; PULSE 82; RESP 16; TEMP 97.6; O2SAT 97
[2016-06-18] MEDS: BUDESONIDE-FORMOTEROL 160/4.5 MCG INHALER INH SCH ×2 (09:00→21:27)
--- NOTE | 2016-06-18 09:45 | HHI.GIFU ---
Subjective Remarks Resting in bed in no distress. No fever, chills. Denies nausea at this time, but is having diffuse abdominal pain. This is worse on right side. NPO for procedure. (Svetlana Kelley) Objective Vitals I&O Vital Signs Date Time Temp Pulse Resp B/P Pulse Ox O2 Delivery O2 Flow Rate FiO2 06/18/16 07:30 97.6 82 16 160/74 97 06/18/16 04:00 98.4 81 20 192/87 96 06/18/16 00:50 97.5 82 18 164/78 98 06/17/16 21:00 98 Nasal Cannula 3.00 06/17/16 20:00 97.8 88 18 146/66 92 06/17/16 17:23 97.7 74 20 158/73 93 06/17/16 12:24 99.5 74 20 132/72 98 06/17/16 10:48 92 Nasal Cannula 2.00 I/O 06/17/16 06/17/16 06/17/16 06/18/16 06/18/16 06/18/16 07:00 15:00 23:00 07:00 15:00 23:00 Intake Total 2494 ml 660 ml 2519 ml Balance 2494 ml 660 ml 2519 ml Intake Oral 480 ml 660 ml IV Total 2014 ml 2519 ml # Voids 3 3 6 1 # Bowel Movements 1 1 0 1 Imaging Last Impressions GI Procedure 06/14/16 0000 Signed Impressions: Service Date/Time: June 13:43 - CONCLUSION: ERCP as above. Please refer to block operator report for further description. Haseeb Merida MD Chest X-Ray 06/13/161751 Signed Impressions: Service Date/Time: Monday, June 13, 2016 17:55 - CONCLUSION: Hyperexpanded lungs and mild bibasilar atelectasis. Haseeb Wall MD Abdomen/Pelvis CT 06/13/161751 Signed Impressions: Service Date/Time: Monday, June 13, 2016 18:31 - CONCLUSION: 1. Cholelithiasis and choledocholithiasis. Numerous small stones seen in the gallbladder, cystic duct and upper common bile duct. No perceptible acute inflammatory changes or definite acute obstruction. I don't see a stone in the lower duct or ampullary region. 2. No renal stones or obstructive uropathy. Small cyst of the right kidney. 3. Small cysts of the liver. 4. Aortoiliac atherosclerosis. No aneurysm. 5. Degenerative changes of the spine, sacroiliac joints and both hips. Compression deformity of the L5 vertebral body appears to be chronic. Haseeb Wall MD Physical Exam HEENT: Normocephalic; atraumatic; no jaundice. CHEST: Resp even/unlabored, diminished CARDIAC: RRR ABDOMEN: Soft, nondistended, diffuse tenderness, R>L. No hepatosplenomegaly; bowel sounds are present in all four quadrants. EXTREMITIES: No clubbing, cyanosis, or edema. SKIN: Normal; no rash; no jaundice. VESSEL SPECIALIST: No focal deficits; alert and oriented times three. (Svetlana Kelley) Assessment and Plan Plan ASSESSMENT: - Cholelithiasis/Choledocholithiasis. CT scan of the abdomen and pelvis without IV contrast (06/13/16)-----> 1. Cholelithiasis and choledocholithiasis. Numerous small stones seen in the gallbladder, cystic duct and upper common bile duct. No perceptible acute inflammatory changes or definite acute obstruction. I don't see a stone in the lower duct or ampullary region. 2. No renal stones or obstructive uropathy. Small cyst of the right kidney. 3. Small cysts of the liver. 4. Aortoiliac atherosclerosis. No aneurysm. 5. Degenerative changes of the spine, sacroiliac joints and both hips. Compression deformity of the L5 vertebral body appears to be chronic. S/P ERCP and EGD with dilation (06/14/16)-----> mild duodenitis, dilation, normal EGD otherwise. CBD stones, s/p sphincterotomy ampulla dilatation and stone removal. Pathology with gastric antral mucosal biopsies with mild acute and chronic gastritis negative for intestinal metaplasia, bebe stain negative for helicobacter. LFTs are improving, last checked on 06/16 and were trending down at that point. GS following, plan is for Lap. Cholecystectomy. - Cholelithiasis. GS following, plan is for lap. fadi today. - Dysphagia, Foreign body esophagus. No prior issues with this. Was eating chicken and thai fries from [employer] when a piece of chicken became lodged in her upper esophagus. Initially, she states she was not able to get anything down, but states this has since improved.S/P EGD with dilation, no foreign body found. - Leukocytosis. IMPROVED - COPD/ONOFRE. Per primary PLAN: - NPO for surgery - PPI - Monitor labs - Supportive care - GS following, for Lap. Cholecystectomy today. - Pt seen and examined by Dr. Mitchell and myself and this note is written on her behalf (Svetlana Kelley) Physician Comments seen, examined agree with above (Catarina Mitchell MD) Svetlana Kelley Jun 18, 2016 09:45 Catarina Mitchell MD Jun 18, 2016 17:12
[2016-06-18] MEDS: PANTOPRAZOLE SOD 40 MG DELAYED RELEASE TAB PO SCH (09:50)
[2016-06-18] MEDS: METOPROLOL TARTRATE 50 MG TAB PO SCH ×2 (09:50→21:25)
[2016-06-18] MEDS: ACETAMINOPHEN/HYDROcodone 325 MG/7.5 MG TAB PO PRN ×3 (09:51→21:25)
[2016-06-18] MEDS ORDERED: fentaNYL CITRATE 250 MCG/5 ML AMP ONE (11:26)
[2016-06-18] MEDS ORDERED: ACETAMINOPHEN 1000 MG/100 ML VIAL IV ONE (11:26)
[2016-06-18] MEDS ORDERED: ceFAZolin INJ 1,000 MG VIAL ONE (11:29)
[2016-06-18] MEDS ORDERED: BUPIVACAINE/EPINEPHRINE 0.25% PF 30 ML VIAL ONE (11:36)
[2016-06-18] MEDS ORDERED: PROPOFOL 200 MG/20 ML AMP IV ONE (12:00)
[2016-06-18] MEDS ORDERED: IOHEXOL 350 MG/ML 50 ML BTL (for RAD DIAG) IV ONE (12:00)
[2016-06-18] MEDS ORDERED: NEOSTIGMINE 3 MG/3 ML SYR IV ONE (12:00)
[2016-06-18] MEDS ORDERED: ONDANSETRON HCL 4 MG/2 ML VIAL IV PUSH ONE (12:00)
[2016-06-18] MEDS ORDERED: ePHEDrine/NS 25 MG/5 ML SYR IV ONE (12:00)
--- NOTE | 2016-06-18 13:19 | HHI.PR ---
cc: Jonathan Mckeon MD Immediate Post Op Note Procedure Date: Jun 18, 2016 Pre Op Diagnosis: Cholecystitis with previous choledocholithiasis Post Op Diagnosis: Same Surgeon: Jonathan Mckeon [facility] Supervisor(s): Carlos Villagomez CSA Procedure: Laparoscopic cholecystectomy, attempted intraoperative cholangiogram Findings: Multiple small stones in cystic duct and GB Complications: None Specimen(s) removed: Gallbladder and stones to pathology Estimated blood loss: 100 ml Anesthesia: General Drains: CISCO IVF (900 ml) Patient to: PACU Patient Condition: Good Date/Time of Procedure: SEE SURGICAL CARE RECORD Jonathan Mckeon MD Jun 18, 2016 13:19
[2016-06-18] MEDS ORDERED: NORC5TAB PO (13:21)
[2016-06-18] MEDS ORDERED: *morphine SULFATE 8 MG/ML PERIprocedure ONLY ONE ×2 (13:29→15:03)
[2016-06-18] MEDS ORDERED: MORPHINE SULFATE 4 MG/ML INJ IV PUSH PRN (13:30)
[2016-06-18] MEDS ORDERED: DO NOT ADM ANY ANTICOAGULANT DRUGS PRN (13:45)
[2016-06-18] MEDS: HYDROmorphone HCL PF 1 MG/ML VIAL IV PUSH PRN (15:20)
[2016-06-18] MEDS ORDERED: KETOROLAC TROMETHAMINE 30 MG/ML (IVP) VIAL ONE (15:39)
[2016-06-18] MEDS ORDERED: KETOROLAC TROMETHAMINE 30 MG/ML (IVP) VIAL IV PUSH PRN (16:00)
[2016-06-18 16:01] LABS: AUTOMATED NEUTROPHIL # 8.5 TH/MM3 (1.8-7.7); BASOPHIL % 0.2 % (0.0-2.0); EOSINOPHIL # 0.2 TH/MM3 (0-0.4); EOSINOPHIL % 1.8 % (0.0-4.0); HEMATOCRIT 34.2 % (35.0-46.0); HEMO FLAGS DIFF FINAL; LYMPH % 3.9 % (9.0-44.0); LYMPHOCYTE # 0.4 TH/MM3 (1.0-4.8); MEAN CELL VOLUME 93.1 FL (80.0-100.0); MEAN CORPUSCULAR HEMOGLOBIN 30.1 PG (27.0-34.0); MEAN CORPUSCULAR HGB CONC 32.3 % (32.0-36.0); MONO % 7.2 % (0.0-8.0); NEUT % 86.9 % (16.0-70.0); PLATELET COUNT 112 TH/MM3 (150-450); RED BLOOD COUNT 3.67 MIL/MM3 (4.00-5.30); WHITE BLOOD COUNT 9.7 TH/MM3 (4.0-11.0)
--- NOTE | 2016-06-18 16:27 | HHI.PR ---
Subjective Interval History Seen postop, complaining of severe right flank pain Review of Systems Constitutional Constitutional Remarks As above, 10 systems reviewed and otherwise negative Vitals/Results Intake & Output 06/17/16 06/17/16 06/18/16 14:59 22:59 06:59 Intake Total 660 ml 2519 ml Balance 660 ml 2519 ml Intake Oral 660 ml IV Total 2519 ml # Voids 3 6 # Bowel Movements 1 0 Vital Signs Vital Signs Date Time Temp Pulse Resp B/P Pulse Ox O2 Delivery O2 Flow Rate FiO2 06/18/16 07:30 97.6 82 16 160/74 97 06/18/16 04:00 98.4 81 20 192/87 96 06/18/16 00:50 97.5 82 18 164/78 98 06/17/16 21:00 98 Nasal Cannula 3.00 06/17/16 20:00 97.8 88 18 146/66 92 06/17/16 17:23 97.7 74 20 158/73 93 CBC/BMP: 06/18/16 1525 06/16/16 0940 Lab Results Laboratory Tests Test 06/18/16 15:25 White Blood Count 9.7 TH/MM3 Red Blood Count 3.67 MIL/MM3 Hemoglobin 11.0 GM/DL Hematocrit 34.2 % Mean Corpuscular Volume 93.1 FL Mean Corpuscular Hemoglobin 30.1 PG Mean Corpuscular Hemoglobin 32.3 % Concent Red Cell Distribution Width 14.0 % Platelet Count 112 TH/MM3 Mean Platelet Volume 8.1 FL Neutrophils (%) (Auto) 86.9 % Lymphocytes (%) (Auto) 3.9 % Monocytes (%) (Auto) 7.2 % Eosinophils (%) (Auto) 1.8 % Basophils (%) (Auto) 0.2 % Neutrophils # (Auto) 8.5 TH/MM3 Lymphocytes # (Auto) 0.4 TH/MM3 Monocytes # (Auto) 0.7 TH/MM3 Eosinophils # (Auto) 0.2 TH/MM3 Basophils # (Auto) 0.0 TH/MM3 CBC Comment DIFF FINAL Differential Comment Physical Exam General General Appearance: Well Developed, No Acute Distress Eyes Eye Exam: Pupils Reactive Ears & Nose Ears & Nose Exam: Nasal Mucosa [place] Throat Throat Exam: Oral Mucosa [place] & Moist Neck Neck Exam: Trachea Midline Pulmonary Resp Exam: Breath Sounds Equal, No Distress Cardiology CV Exam: Normal Sinus Rhythm, Good Perfusion Gastrointestinal/Abdomen GI Exam: Non-Tender, Bowel Sounds Present GI Remarks Drain present in the right upper quadrant, tender right flank Musculoskeletal MS Exam: Normal Tone, Good Strength Integumentary Skin Exam: Warm, Dry Neurologic Neuro Exam: Alert, Awake, Oriented, Speech Clear, Moving All Extremities Psychiatric Psych Exam: Appropriate Responses Assessment/Plan Assessment/Plan Diagnosis: Cholelithiasis , status post laparoscopic cholecystectomy 06/18/16 Postoperative right flank pain, etiology unclear mild common bile duct dilatation on admission Choledocholithiasis, status post EGD on 06/14/16, showing esophageal stricture and duodenitis, biopsies taken Status post ERCP with sphincterectomy with validation of the ampulla and removal of stones Postoperative elevation in liver enzymes which has resolved Aortoiliac atherosclerosis Chronic L5 compression History of COPD, obstructive sleep apnea and reflux disease Plan Pain control Proton pump inhibitor Stat KUB Discussed with patient Discussed with nurse in recovery Follow liver enzymes GI following 35 minutes Elzbieta Neff MD Jun 18, 2016 16:27
--- NOTE | 2016-06-18 16:36 | RADRPT ---
EXAM DATE/TIME: 06/18/2016 15:58 [facility] COMPARISON: No previous studies available for comparison. INDICATIONS : Post operative abdominal pain. Patient just had her gallbladder removed. MEDICAL HISTORY : Cardiovascular disease. Hypertension. a-fib. Cervical fusion SURGICAL HISTORY : Cervical fusion. ENCOUNTER: Initial ACUITY: 1 day PAIN SCORE: 5/10 LOCATION: Bilateral abdomen. FINDINGS: The patient is status post cholecystectomy. A surgical drain is noted within the right upper quadran t. There is no bowel obstruction or ileus. Degenerative changes and scoliosis of the thoracolumbar spine are noted. No free intraperitoneal air is noted. Hardware is noted within the right proximal femur. Degenerative changes are noted involving the hip joints bilaterally. Scattered phleboliths a re noted within the pelvis. CONCLUSION: 1. No evidence of bowel obstruction, ileus, or perforation. 2. Degenerative changes and scoliosis of the thoracolumbar spine. 3. Degenerative changes involving the hip joints bilaterally. William Mcgrath MD on June 18, 2016 at 16:26 Board Certified Radiologist. This report was verified electronically.
[2016-06-18 16:37] LABS: INDIRECT BILIRUBIN 0.3 MG/DL (0.0-0.8); POTASSIUM 3.3 MEQ/L (3.5-5.1); TOTAL BILIRUBIN ADULT 0.5 MG/DL (0.2-1.0)
[2016-06-18] MEDS: FLUoxetine HCL 20 MG CAP PO SCH (17:44)
[2016-06-18 19:49] VITALS: O2SAT 97
[2016-06-18 20:00] VITALS: BP 124/59; PULSE 87; RESP 16; TEMP 98.4; O2SAT 93
[2016-06-18] MEDS: GABAPENTIN 100 MG CAP PO SCH (21:25)
[2016-06-18] MEDS: MONTELUKAST SODIUM 10 MG TAB PO SCH (21:25)
[2016-06-19] VITALS (8 sets, daily range): BP systolic 112–135; BP diastolic 56–61; PULSE 75–90; RESP 16–18; TEMP 98.1–99; O2SAT 96–98
[2016-06-19] MEDS: ACETAMINOPHEN/HYDROcodone 325 MG/7.5 MG TAB PO PRN ×5 (01:30→21:45)
[2016-06-19] MEDS: FLUoxetine HCL 20 MG CAP PO SCH (08:32)
[2016-06-19] MEDS: GABAPENTIN 100 MG CAP PO SCH ×2 (08:32→21:44)
[2016-06-19] MEDS: PANTOPRAZOLE SOD 40 MG DELAYED RELEASE TAB PO SCH (08:32)
[2016-06-19] MEDS: METOPROLOL TARTRATE 50 MG TAB PO SCH ×2 (08:33→21:45)
[2016-06-19] MEDS: BUDESONIDE-FORMOTEROL 160/4.5 MCG INHALER INH SCH ×2 (08:35→21:47)
--- NOTE | 2016-06-19 09:59 | HHI.FF ---
Face to Face Verification Diagnosis: (1) Gallstones Home Health Nursing Order: Wound care and dressing changes Nursing assessment with vital signs Instructions: CISCO drain care; monitor output I have seen patient Libia Schaffer on 06/19/16. My clinical findings support the need for the requested home health care services because: Limited ability to care for self High risk of falls I certify that my clinical findings support that this patient is homebound because: Post-op weakness Unsteady gait/balance Elisa Zhang [facility] Jun 19, 2016 09:59
--- NOTE | 2016-06-19 10:09 | HHI.GIFU ---
Subjective Remarks Resting in bed. Feeling much better. Tolerating clears. States her pain has improved. Was oob yesterday. Objective Vitals I&O Vital Signs Date Time Temp Pulse Resp B/P Pulse Ox O2 Delivery O2 Flow Rate FiO2 06/19/16 08:00 98.2 77 18 118/57 98 06/19/16 05:45 Nasal Cannula 3.00 06/19/16 05:45 98.8 81 18 112/56 96 06/19/16 00:00 98.8 90 16 135/61 96 06/19/16 00:00 Nasal Cannula 3.00 06/18/16 20:00 98.4 87 16 124/59 93 06/18/16 20:00 Nasal Cannula 3.00 06/18/16 19:49 97 Nasal Cannula 2.00 06/18/16 16:00 78 18 136/65 96 Nasal Cannula 2 06/18/16 15:30 76 18 148/74 97 Nasal Cannula 2 06/18/16 15:15 76 18 158/78 96 Nasal Cannula 2 06/18/16 14:45 72 18 157/80 97 Nasal Cannula 2 I/O 06/18/16 06/18/16 06/18/16 06/19/16 06/19/16 06/19/16 07:00 15:00 23:00 07:00 15:00 23:00 Intake Total 2519 ml 633 ml 788 ml Output Total 20 ml 120 ml 40 ml Balance 2519 ml -20 ml 513 ml 748 ml IV Total 2519 ml 633 ml 788 ml Drainage Total 20 ml 120 ml 40 ml Bladder Scan Volume Amount 318 ml # Voids 6 2 0 # Bowel Movements 0 1 0 Laboratory Laboratory Tests Test 06/18/16 15:25 White Blood Count 9.7 Red Blood Count 3.67 Hemoglobin 11.0 Hematocrit 34.2 Mean Corpuscular Volume 93.1 Mean Corpuscular Hemoglobin 30.1 Mean Corpuscular Hemoglobin 32.3 Concent Red Cell Distribution Width 14.0 Platelet Count 112 Mean Platelet Volume 8.1 Neutrophils (%) (Auto) 86.9 Lymphocytes (%) (Auto) 3.9 Monocytes (%) (Auto) 7.2 Eosinophils (%) (Auto) 1.8 Basophils (%) (Auto) 0.2 Neutrophils # (Auto) 8.5 Lymphocytes # (Auto) 0.4 Monocytes # (Auto) 0.7 Eosinophils # (Auto) 0.2 Basophils # (Auto) 0.0 CBC Comment DIFF FINAL Differential Comment Sodium Level 139 Potassium Level 3.3 Chloride Level 100 Carbon Dioxide Level 34.0 Anion Gap 5 Blood Urea Nitrogen 3 Creatinine 0.44 Estimat Glomerular Filtration 140 Rate Random Glucose 133 Calcium Level 8.1 Total Bilirubin 0.5 Direct Bilirubin 0.2 Indirect Bilirubin 0.3 Aspartate Amino Transf 76 (AST/SGOT) Alanine Aminotransferase 74 (ALT/SGPT) Alkaline Phosphatase 40 Total Protein 5.1 Albumin 2.2 Imaging Last Impressions Abdomen X-Ray 06/18/16 0000 Signed Impressions: Service Date/Time: Saturday, June 18, 2016 15:58 - CONCLUSION: 1. No evidence of bowel obstruction, ileus, or perforation. 2. Degenerative changes and scoliosis of the thoracolumbar spine. 3. Degenerative changes involving the hip joints bilaterally. William Mcgrath MD GI Procedure 06/14/16 0000 Signed Impressions: Service Date/Time: June 13:43 - CONCLUSION: ERCP as above. Please refer to rip saw operator report for further description. Haseeb Merida MD Chest X-Ray 06/13/161751 Signed Impressions: Service Date/Time: Monday, June 13, 2016 17:55 - CONCLUSION: Hyperexpanded lungs and mild bibasilar atelectasis. Haseeb Wall MD Abdomen/Pelvis CT 06/13/161751 Signed Impressions: Service Date/Time: Monday, June 13, 2016 18:31 - CONCLUSION: 1. Cholelithiasis and choledocholithiasis. Numerous small stones seen in the gallbladder, cystic duct and upper common bile duct. No perceptible acute inflammatory changes or definite acute obstruction. I don't see a stone in the lower duct or ampullary region. 2. No renal stones or obstructive uropathy. Small cyst of the right kidney. 3. Small cysts of the liver. 4. Aortoiliac atherosclerosis. No aneurysm. 5. Degenerative changes of the spine, sacroiliac joints and both hips. Compression deformity of the L5 vertebral body appears to be chronic. Haseeb Wall MD Physical Exam HEENT: Normocephalic; atraumatic; no jaundice. CHEST: Resp even/unlabored, diminished CARDIAC: RRR ABDOMEN: Soft, nondistended, mild RUQ tenderness-much improved. No hepatosplenomegaly; bowel sounds are present in all four quadrants. EXTREMITIES: No clubbing, cyanosis, or edema. SKIN: Normal; no rash; no jaundice. APPLIQUE SEWER: No focal deficits; alert and oriented times three. Assessment and Plan Plan ASSESSMENT: - Cholelithiasis/Choledocholithiasis. CT scan of the abdomen and pelvis without IV contrast (06/13/16)-----> 1. Cholelithiasis and choledocholithiasis. Numerous small stones seen in the gallbladder, cystic duct and upper common bile duct. No perceptible acute inflammatory changes or definite acute obstruction. I don't see a stone in the lower duct or ampullary region. 2. No renal stones or obstructive uropathy. Small cyst of the right kidney. 3. Small cysts of the liver. 4. Aortoiliac atherosclerosis. No aneurysm. 5. Degenerative changes of the spine, sacroiliac joints and both hips. Compression deformity of the L5 vertebral body appears to be chronic. S/P ERCP and EGD with dilation (06/14/16)-----> mild duodenitis, dilation, normal EGD otherwise. CBD stones, s/p sphincterotomy ampulla dilatation and stone removal. Pathology with gastric antral mucosal biopsies with mild acute and chronic gastritis negative for intestinal metaplasia, bebe stain negative for helicobacter. LFTs are improving, last checked on 06/16 and were trending down at that point. GS following, S/P Lap. Cholecystectomy, POD # 1. LFT T. Bili 0.5, AST 76, ALT 74, Alk Phosph 40. Clinically much improved. Slight increase in transaminases likely related to surgery. - Cholelithiasis. S/P Lap. Cholecystectomy, POD #1 - Dysphagia, Foreign body esophagus. No prior issues with this. Was eating chicken and nepali fries from [employer] when a piece of chicken became lodged in her upper esophagus. Initially, she states she was not able to get anything down, but states this has since improved.S/P EGD with dilation, no foreign body found. - Leukocytosis. IMPROVED - COPD/ONOFRE. Per primary PLAN: - Diet per GS - PPI - FU WONG 2 weeks with LFTs in one week - S/P Lap. Cholecystectomy, POD #1 - Pt seen and examined by Dr. Mitchell and myself and this note is written on her behalf Svetlana Kelley Jun 19, 2016 10:09
--- NOTE | 2016-06-19 11:14 | HHI.PR ---
Subjective Subjective Notes Resting in bed Feels better today with only mild tenderness Hungry Objective Vitals/I&O Vital Signs Date Time Temp Pulse Resp B/P Pulse Ox O2 Delivery O2 Flow Rate FiO2 06/19/16 10:00 98 Nasal Cannula 3.00 06/19/16 08:00 98.2 77 18 118/57 Labs Laboratory Tests Test 06/18/16 15:25 White Blood Count 9.7 Red Blood Count 3.67 Hemoglobin 11.0 Hematocrit 34.2 Mean Corpuscular Volume 93.1 Mean Corpuscular Hemoglobin 30.1 Mean Corpuscular Hemoglobin 32.3 Concent Red Cell Distribution Width 14.0 Platelet Count 112 Mean Platelet Volume 8.1 Neutrophils (%) (Auto) 86.9 Lymphocytes (%) (Auto) 3.9 Monocytes (%) (Auto) 7.2 Eosinophils (%) (Auto) 1.8 Basophils (%) (Auto) 0.2 Neutrophils # (Auto) 8.5 Lymphocytes # (Auto) 0.4 Monocytes # (Auto) 0.7 Eosinophils # (Auto) 0.2 Basophils # (Auto) 0.0 CBC Comment DIFF FINAL Differential Comment Sodium Level 139 Potassium Level 3.3 Chloride Level 100 Carbon Dioxide Level 34.0 Anion Gap 5 Blood Urea Nitrogen 3 Creatinine 0.44 Estimat Glomerular Filtration 140 Rate Random Glucose 133 Calcium Level 8.1 Total Bilirubin 0.5 Direct Bilirubin 0.2 Indirect Bilirubin 0.3 Aspartate Amino Transf 76 (AST/SGOT) Alanine Aminotransferase 74 (ALT/SGPT) Alkaline Phosphatase 40 Total Protein 5.1 Albumin 2.2 Cardiovascular: Regular Lungs: Clear Abdomen: Other (lap sites c/d/i; CISCO with SS drainage in bulb; abdomen non distended ) Extremities: No edema A/P Problem List: (1) Gallstones (2) Status post endoscopic retrograde cholangiopancreatography (3) Choledocholithiasis (4) Hyperkalemia (5) Anemia Assessment and Plan 75 year old female with Cholecystitis with previous choledocholithiasis POD1 lap fadi -Advance to low fat diet -Pain control -CISCO drain stays in at time of DC -GI following -[facility] for CISCO drain care -Follow up with Dr. Mckeon in about 1 week -[place] rx on chart Attending Note - Dr. Mckeon Abdomen benign; CISCO drain output serosanguinous The exam, history, and the medical decision-making described in the above note were completed with the assistance of the mid-level provider. I reviewed and agree with the findings presented. I attest that I had a [id number] encounter with the patient on the same day, and personally performed and documented my assessment and findings in the medical record. Elisa Zhang Jun 19, 2016 11:14 Jonathan Mckeon MD Jun 20, 2016 22:54
[2016-06-19] MEDS ORDERED: POTASSIUM CHLORIDE 20 MEQ PWD PACKET PO ONE (11:30)
--- NOTE | 2016-06-19 11:49 | HHI.PR ---
Subjective Subjective Remarks resting in bed alert, oriented. Hypoactive BS O2 at 2L no family present Review of Systems Constitutional Constitutional: Weakness GI/Abdomen GI/Abdomen Remarks hypoactive BS, post op day 1 Musculoskeletal MS: Weakness Integumentary Skin: Wounds (abd. CDI, CISCO drain) Psychiatric Psychiatric: Normal Mood Vitals/Results Intake & Output 06/18/16 06/18/16 06/19/16 15:00 23:00 07:00 Intake Total 633 ml 788 ml Output Total 20 ml 120 ml 40 ml Balance -20 ml 513 ml 748 ml IV Total 633 ml 788 ml Drainage Total 20 ml 120 ml 40 ml Bladder Scan Volume Amount 318 ml # Voids 2 0 # Bowel Movements 1 0 Vital Signs Vital Signs Date Time Temp Pulse Resp B/P Pulse Ox O2 Delivery O2 Flow Rate FiO2 06/19/16 10:00 98 Nasal Cannula 3.00 06/19/16 08:00 98.2 77 18 118/57 98 06/19/16 07:00 98 Nasal Cannula 3.00 06/19/16 05:45 Nasal Cannula 3.00 06/19/16 05:45 98.8 81 18 112/56 96 06/19/16 00:00 98.8 90 16 135/61 96 06/19/16 00:00 Nasal Cannula 3.00 06/18/16 20:00 98.4 87 16 124/59 93 06/18/16 20:00 Nasal Cannula 3.00 06/18/16 19:49 97 Nasal Cannula 2.00 06/18/16 16:00 78 18 136/65 96 Nasal Cannula 2 06/18/16 15:30 76 18 148/74 97 Nasal Cannula 2 06/18/16 15:15 76 18 158/78 96 Nasal Cannula 2 06/18/16 14:45 72 18 157/80 97 Nasal Cannula 2 CBC/BMP: 06/18/16 1525 06/18/16 1525 Lab Results Laboratory Tests Test 06/18/16 06/19/16 15:25 08:41 White Blood Count 9.7 TH/MM3 Red Blood Count 3.67 MIL/MM3 Hemoglobin 11.0 GM/DL Hematocrit 34.2 % Mean Corpuscular Volume 93.1 FL Mean Corpuscular Hemoglobin 30.1 PG Mean Corpuscular Hemoglobin 32.3 % Concent Red Cell Distribution Width 14.0 % Platelet Count 112 TH/MM3 Mean Platelet Volume 8.1 FL Neutrophils (%) (Auto) 86.9 % Lymphocytes (%) (Auto) 3.9 % Monocytes (%) (Auto) 7.2 % Eosinophils (%) (Auto) 1.8 % Basophils (%) (Auto) 0.2 % Neutrophils # (Auto) 8.5 TH/MM3 Lymphocytes # (Auto) 0.4 TH/MM3 Monocytes # (Auto) 0.7 TH/MM3 Eosinophils # (Auto) 0.2 TH/MM3 Basophils # (Auto) 0.0 TH/MM3 CBC Comment DIFF FINAL Differential Comment Sodium Level 139 MEQ/L Potassium Level 3.3 MEQ/L Chloride Level 100 MEQ/L Carbon Dioxide Level 34.0 MEQ/L Anion Gap 5 MEQ/L Blood Urea Nitrogen 3 MG/DL Creatinine 0.44 MG/DL Estimat Glomerular Filtration 140 ML/MIN Rate Random Glucose 133 MG/DL Calcium Level 8.1 MG/DL Total Bilirubin 0.5 MG/DL Direct Bilirubin 0.2 MG/DL Indirect Bilirubin 0.3 MG/DL Aspartate Amino Transf 76 U/L (AST/SGOT) Alanine Aminotransferase 74 U/L (ALT/SGPT) Alkaline Phosphatase 40 U/L Total Protein 5.1 GM/DL Albumin 2.2 GM/DL Nasal Screen MRSA (PCR) NEGATIVE Imaging Remarks Last Impressions Abdomen X-Ray 06/18/16 0000 Signed Impressions: Service Date/Time: Saturday, June 18, 2016 15:58 - CONCLUSION: 1. No evidence of bowel obstruction, ileus, or perforation. 2. Degenerative changes and scoliosis of the thoracolumbar spine. 3. Degenerative changes involving the hip joints bilaterally. William Mcgrath MD GI Procedure 06/14/16 0000 Signed Impressions: Service Date/Time: June 13:43 - CONCLUSION: ERCP as above. Please refer to neighborhood coordinator report for further description. Haseeb Merida MD Chest X-Ray 06/13/161751 Signed Impressions: Service Date/Time: Monday, June 13, 2016 17:55 - CONCLUSION: Hyperexpanded lungs and mild bibasilar atelectasis. Haseeb Wall MD Abdomen/Pelvis CT 06/13/161751 Signed Impressions: Service Date/Time: Monday, June 13, 2016 18:31 - CONCLUSION: 1. Cholelithiasis and choledocholithiasis. Numerous small stones seen in the gallbladder, cystic duct and upper common bile duct. No perceptible acute inflammatory changes or definite acute obstruction. I don't see a stone in the lower duct or ampullary region. 2. No renal stones or obstructive uropathy. Small cyst of the right kidney. 3. Small cysts of the liver. 4. Aortoiliac atherosclerosis. No aneurysm. 5. Degenerative changes of the spine, sacroiliac joints and both hips. Compression deformity of the L5 vertebral body appears to be chronic. Haseeb Wall MD Current Medications Active Medications Hydromorphone HCl (Dilaudid Pf Inj) 0.5 mg Q4H PRN IV PUSH Last administered on 06/18/16 15:20; Admin Dose 0.5 MG; Start 06/18/16 at 15:15 Ketorolac Tromethamine (Toradol Inj) 15 mg Q6H PRN IV PUSH Last administered on 06/19/16 04:10; Admin Dose 15 MG; Start 06/18/16 at 16:00; Stop 06/19/16 at 15:59 Ketorolac Tromethamine (Toradol Inj) 30 mg STK-MED ONCE .ROUTE; Start 06/18/16 at 15:39; Stop 06/18/16 at 15:40; Status DC Miscellaneous Information ALL NURSING DEPARTME... UNSCH PRN .XX; Start at 13:45; Stop 06/19/16 at 13:44 Morphine Sulfate (*morphine INJ PERIprocedure ONLY) 8 mg STK-MED ONCE .ROUTE Last administered on 06/18/16 13:29; Admin Dose 8 MG; Start 06/18/16 at 13:29; Stop 06/18/16 at 13:30; Status DC Morphine Sulfate (*morphine INJ PERIprocedure ONLY) 8 mg STK-MED ONCE .ROUTE Last administered on 06/18/16 15:03; Admin Dose 5 MG; Start 06/18/16 at 15:03; Stop 06/18/16 at 15:04; Status DC Morphine Sulfate (Morphine Inj) 2 mg Q3H PRN IV PUSH; Start 06/18/16 at 13:30 Potassium Chloride (KCl Powder) 20 meq ONCE ONCE PO; Start 06/19/16 at 11:30; Stop 06/19/16 at 11:31; Status DC Physical Exam General General Appearance: Well Developed, No Acute Distress Eyes Eye Exam: Pupils Reactive Ears & Nose Ears & Nose Exam: Nasal Mucosa [place] Throat Throat Exam: Oral Mucosa [place] & Moist Neck Neck Exam: Trachea Midline Pulmonary Resp Exam: Breath Sounds Equal, No Distress Cardiology CV Exam: Normal Sinus Rhythm, Good Perfusion Gastrointestinal/Abdomen GI Exam: Non-Tender, Bowel Sounds Present, Bowel Sounds Hypoactive Musculoskeletal MS Exam: Normal Tone, Good Strength Integumentary Skin Exam: Warm, Dry Neurologic Neuro Exam: Alert, Awake, Oriented, Speech Clear, Moving All Extremities Psychiatric Psych Exam: Appropriate Responses Assessment/Plan Assessment/Plan Cholelithiasis , status post laparoscopic cholecystectomy 06/18/16 Postoperative right flank pain, resolved status post EGD on 06/14/16, showing esophageal stricture and duodenitis, biopsies taken Status post ERCP with sphincterectomy with validation of the ampulla and removal of stones Postoperative elevation in liver enzymes which has resolved Aortoiliac atherosclerosis Chronic L5 compression History of COPD, obstructive sleep apnea and reflux disease HYpokalemia Plan vitals reviewed, afebrile, pulse, resp. and B/P normal ranges. Using O2 at 2L. labs reviewed , Hypokalemia, supplement K given 20mez, check BMP in am, increase activity, OOB, chair, ambulate BS hypoactive, taking sips of PO fluids this am. monitor Urinary retention, voided minimal amount in 24 hrs, bladdrer scan showed urine > 500cc. Mai in for today. Pain control per surgeon and chronic pain management Proton pump inhibitor, prophylaxsis D/W patient D/W Dr. Neff, seen on his behalf Follow liver enzymes GI following 35 minutes Isela Ronquillo Jun 19, 2016 11:49
[2016-06-19 16:58] LABS: AUTOMATED NEUTROPHIL # 10.2 TH/MM3 (1.8-7.7); BASOPHIL % 0.3 % (0.0-2.0); EOSINOPHIL # 0.4 TH/MM3 (0-0.4); EOSINOPHIL % 3.5 % (0.0-4.0); HEMATOCRIT 29.7 % (35.0-46.0); HEMO FLAGS DIFF FINAL; LYMPHOCYTE # 0.8 TH/MM3 (1.0-4.8); MEAN CELL VOLUME 93.8 FL (80.0-100.0); MEAN CORPUSCULAR HEMOGLOBIN 30.4 PG (27.0-34.0); MEAN CORPUSCULAR HGB CONC 32.4 % (32.0-36.0); MONO % 9.2 % (0.0-8.0); PLATELET COUNT 116 TH/MM3 (150-450); RED BLOOD COUNT 3.17 MIL/MM3 (4.00-5.30); RED CELL DISTRIBUTION WIDTH 13.8 % (11.6-17.2); WHITE BLOOD COUNT 12.6 TH/MM3 (4.0-11.0)
[2016-06-19 17:25] LABS: BICARBONATE 34.6 MEQ/L (21.0-32.0); INDIRECT BILIRUBIN 0.3 MG/DL (0.0-0.8); MAGNESIUM 1.6 MG/DL (1.5-2.5); POTASSIUM 3.5 MEQ/L (3.5-5.1); TOTAL BILIRUBIN ADULT 0.4 MG/DL (0.2-1.0)
[2016-06-19] MEDS: POTASSIUM CHLORIDE 20 MEQ CONTROLLED RELEASE TAB PO SCH (21:44)
[2016-06-19] MEDS: MONTELUKAST SODIUM 10 MG TAB PO SCH (21:44)
[2016-06-20] VITALS (8 sets, daily range): BP systolic 120–193; BP diastolic 59–96; PULSE 75–91; RESP 18–20; TEMP 98–99.7; O2SAT 95–98
[2016-06-20] MEDS: ACETAMINOPHEN/HYDROcodone 325 MG/7.5 MG TAB PO PRN ×3 (02:02→18:27)
[2016-06-20 08:25] LABS: BICARBONATE 32.3 MEQ/L (21.0-32.0)
[2016-06-20] MEDS: GABAPENTIN 100 MG CAP PO SCH ×2 (08:54→21:01)
[2016-06-20] MEDS: POTASSIUM CHLORIDE 20 MEQ CONTROLLED RELEASE TAB PO SCH ×2 (08:54→21:02)
[2016-06-20] MEDS: PANTOPRAZOLE SOD 40 MG DELAYED RELEASE TAB PO SCH (08:56)
[2016-06-20] MEDS: METOPROLOL TARTRATE 50 MG TAB PO SCH ×2 (08:56→21:01)
[2016-06-20] MEDS: FLUoxetine HCL 20 MG CAP PO SCH (08:56)
[2016-06-20] MEDS: BUDESONIDE-FORMOTEROL 160/4.5 MCG INHALER INH SCH ×2 (08:57→21:36)
--- NOTE | 2016-06-20 11:43 | HHI.PR ---
Subjective Subjective Remarks resting in bed alert, spoke with Hypoactive BS O2 at 2L no family present moreno, Review of Systems Constitutional Constitutional: Weakness Genitourinary Remarks retention yesterday moreno inserted, 06/19, will attempt to dc today and monitor Musculoskeletal MS: Weakness Integumentary Skin: Wounds (abd. CDI, CISCO drain) Psychiatric Psychiatric: Normal Mood Vitals/Results Intake & Output 06/19/16 06/19/16 06/20/16 15:00 23:00 07:00 Intake Total 240 ml 520 ml 1430 ml Output Total 100 ml 600 ml Balance 240 ml 420 ml 830 ml Intake Oral 240 ml 520 ml 480 ml IV Total 950 ml Output Urine Total 100 ml 600 ml # Bowel Movements 0 0 Vital Signs Vital Signs Date Time Temp Pulse Resp B/P Pulse Ox O2 Delivery O2 Flow Rate FiO2 06/20/16 08:18 98.4 81 18 163/85 95 06/20/16 07:00 Nasal Cannula 3.00 06/20/16 04:05 98.0 75 18 120/59 98 06/20/16 04:00 98 Nasal Cannula 3.00 06/20/16 03:13 19 06/20/16 00:58 98.0 79 20 128/61 95 06/19/16 20:30 98 Nasal Cannula 3.00 06/19/16 20:00 99.0 81 18 135/59 96 06/19/16 18:25 98 Nasal Cannula 3.00 06/19/16 16:04 98.1 80 18 119/59 98 06/19/16 12:03 98.2 75 18 116/57 97 CBC/BMP: 06/19/16 1630 06/20/16 0700 Lab Results Laboratory Tests Test 06/19/16 06/20/16 16:30 07:00 White Blood Count 12.6 TH/MM3 Red Blood Count 3.17 MIL/MM3 Hemoglobin 9.6 GM/DL Hematocrit 29.7 % Mean Corpuscular Volume 93.8 FL Mean Corpuscular Hemoglobin 30.4 PG Mean Corpuscular Hemoglobin 32.4 % Concent Red Cell Distribution Width 13.8 % Platelet Count 116 TH/MM3 Mean Platelet Volume 8.4 FL Neutrophils (%) (Auto) 81.0 % Lymphocytes (%) (Auto) 6.0 % Monocytes (%) (Auto) 9.2 % Eosinophils (%) (Auto) 3.5 % Basophils (%) (Auto) 0.3 % Neutrophils # (Auto) 10.2 TH/MM3 Lymphocytes # (Auto) 0.8 TH/MM3 Monocytes # (Auto) 1.2 TH/MM3 Eosinophils # (Auto) 0.4 TH/MM3 Basophils # (Auto) 0.0 TH/MM3 CBC Comment DIFF FINAL Differential Comment Sodium Level 138 MEQ/L 137 MEQ/L Potassium Level 3.5 MEQ/L 4.0 MEQ/L Chloride Level 99 MEQ/L 100 MEQ/L Carbon Dioxide Level 34.6 MEQ/L 32.3 MEQ/L Anion Gap 4 MEQ/L 5 MEQ/L Blood Urea Nitrogen 10 MG/DL 7 MG/DL Creatinine 0.66 MG/DL 0.42 MG/DL Estimat Glomerular Filtration 88 ML/MIN 148 ML/MIN Rate Random Glucose 101 MG/DL 81 MG/DL Calcium Level 8.1 MG/DL 8.1 MG/DL Phosphorus Level 2.2 MG/DL Magnesium Level 1.6 MG/DL Total Bilirubin 0.4 MG/DL Direct Bilirubin 0.1 MG/DL Indirect Bilirubin 0.3 MG/DL Aspartate Amino Transf 50 U/L (AST/SGOT) Alanine Aminotransferase 63 U/L (ALT/SGPT) Alkaline Phosphatase 43 U/L Total Protein 4.7 GM/DL Albumin 2.0 GM/DL Current Medications Active Medications Potassium Chloride (KCl) 20 meq Q12HR PO Last administered on 06/20/16t 08:54; Admin Dose 20 MEQ; Start 06/19/16 at 21:00 Physical Exam General General Appearance: Well Developed, No Acute Distress Eyes Eye Exam: Pupils Reactive Ears & Nose Ears & Nose Exam: Nasal Mucosa [place] Throat Throat Exam: Oral Mucosa [place] & Moist Neck Neck Exam: Trachea Midline Pulmonary Resp Exam: Breath Sounds Equal, No Distress Cardiology CV Exam: Normal Sinus Rhythm, Good Perfusion Gastrointestinal/Abdomen GI Exam: Non-Tender, Bowel Sounds Present, Bowel Sounds Hypoactive GI Remarks moreno Musculoskeletal MS Exam: Normal Tone, Good Strength Integumentary Skin Exam: Warm, Dry Neurologic Neuro Exam: Alert, Awake, Oriented, Speech Clear, Moving All Extremities Psychiatric Psych Exam: Appropriate Responses Assessment/Plan Assessment/Plan Cholelithiasis , status post laparoscopic cholecystectomy 06/18/16 Postoperative right flank pain, resolved status post EGD on 06/14/16, showing esophageal stricture and duodenitis, biopsies taken Status post ERCP with sphincterectomy with validation of the ampulla and removal of stones Postoperative elevation in liver enzymes which has resolved Aortoiliac atherosclerosis Chronic L5 compression History of COPD, obstructive sleep apnea and reflux disease, stable HYpokalemia, treated. Plan vitals reviewed, afebrile, pulse, resp. and B/P normal ranges. Using O2 at 2L. labs reviewed , Hypokalemia resolved, K 4., increase activity, OOB, chair, ambulate BS active, taking sips of PO fluids this am. advance diet Urinary retention, clamp moreno today, and D/C. Monitor . May reinsert if no void X 8 hrs. Pain control per surgeon and chronic pain management Proton pump inhibitor, prophylaxsis D/W patient and D/W Dr. Neff, seen on his behalf Follow liver enzymes GI following Isela Ronquillo Jun 20, 2016 11:43
[2016-06-20] MEDS: HYDROmorphone HCL PF 1 MG/ML VIAL IV PUSH PRN (12:12)
--- NOTE | 2016-06-20 17:18 | HHI.FF ---
Face to Face Verification Diagnosis: (1) Choledocholithiasis with obstruction (2) Gallstones (3) Status post endoscopic retrograde cholangiopancreatography (4) Cholecystitis Physical Therapy Order: Evaluate and Treat Home Health Nursing Order: Medical education Wound care and dressing changes I have seen patient Libia Schaffer on 06/20/16. My clinical findings support the need for the requested home health care services because: Ltd mobility - disease progression I certify that my clinical findings support that this patient is homebound because: Post-op weakness Elzbieta Neff MD Jun 20, 2016 17:18
[2016-06-20] MEDS ORDERED: DIATRIZOATE MEGLUM/DIATRIZOATE SOD 9 ML CUP PO ONE (18:45)
[2016-06-20] MEDS: MONTELUKAST SODIUM 10 MG TAB PO SCH (21:01)
--- NOTE | 2016-06-20 22:53 | HHI.PR ---
Subjective Subjective Notes Tolerating diet Had to have moreno reinserted for urinary retention; removed again earlier today Objective Vitals/I&O Vital Signs Date Time Temp Pulse Resp B/P Pulse Ox O2 Delivery O2 Flow Rate FiO2 06/20/16 20:00 99.7 91 18 193/96 97 06/20/16 18:07 Nasal Cannula 3.00 Labs Laboratory Tests Test 06/20/16 07:00 Sodium Level 137 Potassium Level 4.0 Chloride Level 100 Carbon Dioxide Level 32.3 Anion Gap 5 Blood Urea Nitrogen 7 Creatinine 0.42 Estimat Glomerular Filtration 148 Rate Random Glucose 81 Calcium Level 8.1 Lungs: Clear Abdomen: Non-distended Narrative Exam Steristrips dry CISCO output serosanguinous A/P Problem List: (1) Gallstones (2) Status post endoscopic retrograde cholangiopancreatography (3) Choledocholithiasis (4) Hyperkalemia (5) Anemia Assessment and Plan Problem List: (1) Gallstones (2) Status post endoscopic retrograde cholangiopancreatography (3) Choledocholithiasis (4) Hyperkalemia (5) Anemia Assessment and Plan 75 year old female with Cholecystitis with previous choledocholithiasis POD #2 lap fadi -Pain control -CISCO drain stays in at time of DC -GI following -C for CISCO drain care -Follow up with Dr. Mckeon in about 1 week -[place] rx on chart -D/C if no further urinary retention Jonathan Mckeon MD Jun 20, 2016 22:53
[2016-06-21] VITALS (7 sets, daily range): BP systolic 142–198; BP diastolic 67–93; PULSE 78–111; RESP 18–20; TEMP 97.2–100.5; O2SAT 93–97
[2016-06-21] MEDS ORDERED: IOHEXOL 350 MG/ML 10 ML VIAL (for RAD DIAG) IV ONE (00:04)
--- NOTE | 2016-06-21 00:22 | RADRPT ---
EXAM DATE/TIME: 06/21/2016 00:01 [place] COMPARISON: No previous studies available for comparison. INDICATIONS : Abdomen and right flank pain. IV CONTRAST: 95 cc Omnipaque 350 (iohexol) IV ORAL CONTRAST: Partial prescribed oral contrast ingested. RADIATION DOSE: 8.18 CTDIvol (mGy) MEDICAL HISTORY : Cardiovascular disease. Hypertension. SURGICAL HISTORY : None. ENCOUNTER: Initial ACUITY: 1 day PAIN SCALE: 6/10 LOCATION: Right flank abdomen TECHNIQUE: Volumetric scanning of the abdomen and pelvis was performed. Using automated exposure control and ad justment of the mA and/or kV according to patient size, radiation dose was kept as low as reasonably achievable to obtain optimal diagnostic quality images. FINDINGS: There is intra-abdominal Free air possibly from the recent procedure. LOWER LUNGS: Moderate-sized bilateral pleural effusions with passive atelectasis. LIVER: Homogeneous density with 2 small cysts. There is no dilation of the biliary tree. Surgical drain ove rlies the gallbladder fossa with a small amount of fluid SPLEEN: Normal size without lesion. PANCREAS: Within normal limits. KIDNEYS: Normal in size and shape. There is no mass, stone or hydronephrosis. ADRENAL GLANDS: Within normal limits. VASCULAR: There is no aortic aneurysm. BOWEL/MESENTERY: The stomach, small bowel, and colon demonstrate no acute abnormality. There is no free intraperitone al air or fluid. ABDOMINAL WALL: Within normal limits. RETROPERITONEUM: There is no lymphadenopathy. BLADDER: No wall thickening or mass. REPRODUCTIVE: Significant amount of fluid in a distended vagina measuring 3.9 x 5.9 cm across INGUINAL: There is no lymphadenopathy or hernia. MUSCULOSKELETAL: Within normal limits for patient age. CONCLUSION: Surgical drain overlies the gallbladder fossa. Small amount of free intraperitoneal air likely relate d to the procedure. Bilateral pleural effusion with basilar passive atelectasis. Fluid-filled distended vagina. Eliezer Young MD on June 21, 2016 at 0:16 Board Certified Radiologist. This report was verified electronically.
[2016-06-21] MEDS: ENALAPRILAT 1.25 MG/ML VIAL IV PUSH PRN ×2 (03:15→16:31)
[2016-06-21] MEDS: HYDROmorphone HCL PF 1 MG/ML VIAL IV PUSH PRN (03:18)
[2016-06-21] MEDS: BUDESONIDE-FORMOTEROL 160/4.5 MCG INHALER INH SCH (09:26)
[2016-06-21] MEDS: POTASSIUM CHLORIDE 20 MEQ CONTROLLED RELEASE TAB PO SCH (09:40)
[2016-06-21] MEDS: PANTOPRAZOLE SOD 40 MG DELAYED RELEASE TAB PO SCH (09:41)
[2016-06-21] MEDS: FLUoxetine HCL 20 MG CAP PO SCH (09:41)
[2016-06-21] MEDS: METOPROLOL TARTRATE 50 MG TAB PO SCH (09:41)
[2016-06-21] MEDS: GABAPENTIN 100 MG CAP PO SCH (09:41)
--- NOTE | 2016-06-21 10:06 | HHI.GIFU ---
Subjective Remarks Resting in bed. Tolerating diet. Continues to have mild right upper quadrant tenderness. States that she is hoping to go home today. Low-grade temp 99.7 Objective Vitals I&O Vital Signs Date Time Temp Pulse Resp B/P Pulse Ox O2 Delivery O2 Flow Rate FiO2 06/21/16 09:50 Nasal Cannula 3.00 06/21/16 08:00 99.7 111 18 185/88 95 06/21/16 04:00 97.2 86 18 160/78 93 06/21/16 00:00 97.2 79 18 198/83 96 06/20/16 21:06 Nasal Cannula 3.00 06/20/16 20:00 99.7 91 18 193/96 97 06/20/16 18:07 97 Nasal Cannula 3.00 06/20/16 16:28 99.5 80 18 140/67 97 06/20/16 12:10 98.8 77 18 146/72 96 I/O 06/20/16 06/20/16 06/20/16 06/21/16 06/21/16 06/21/16 06:59 14:59 22:59 06:59 14:59 22:59 Intake Total 1430 ml 610 ml Output Total 600 ml 15 ml Balance 830 ml 610 ml -15 ml Intake Oral 480 ml 610 ml IV Total 950 ml Output Urine Total 600 ml Drainage Total 15 ml # Voids 2 2 # Bowel Movements 0 Imaging Last Impressions Abdomen/Pelvis CT 06/21/16 0000 Signed Impressions: Service Date/Time: June 00:01 - CONCLUSION: Surgical drain overlies the gallbladder fossa. Small amount of free intraperitoneal air likely related to the procedure. Bilateral pleural effusion with basilar passive atelectasis. Fluid-filled distended vagina. Eliezer Young MD Abdomen X-Ray 06/18/16 0000 Signed Impressions: Service Date/Time: Saturday, June 18, 2016 15:58 - CONCLUSION: 1. No evidence of bowel obstruction, ileus, or perforation. 2. Degenerative changes and scoliosis of the thoracolumbar spine. 3. Degenerative changes involving the hip joints bilaterally. William Mcgrath MD GI Procedure 06/14/16 0000 Signed Impressions: Service Date/Time: June 13:43 - CONCLUSION: ERCP as above. Please refer to tearoom hostess report for further description. Haseeb Merida MD Chest X-Ray 06/13/16 [id number] Signed Impressions: Service Date/Time: Monday, June 13, 2016 17:55 - CONCLUSION: Hyperexpanded lungs and mild bibasilar atelectasis. Haseeb Wall MD Physical Exam HEENT: Normocephalic; atraumatic; no jaundice. CHEST: Resp even/unlabored, diminished CARDIAC: RRR ABDOMEN: Soft, nondistended, mild RUQ tenderness. No hepatosplenomegaly; bowel sounds are present in all four quadrants. EXTREMITIES: No clubbing, cyanosis, or edema. SKIN: Normal; no rash; no jaundice. COMPTROLLER: No focal deficits; alert and oriented times three. Assessment and Plan Plan ASSESSMENT: - Cholelithiasis/Choledocholithiasis. CT scan of the abdomen and pelvis without IV contrast (06/13/16)-----> 1. Cholelithiasis and choledocholithiasis. Numerous small stones seen in the gallbladder, cystic duct and upper common bile duct. No perceptible acute inflammatory changes or definite acute obstruction. I don't see a stone in the lower duct or ampullary region. 2. No renal stones or obstructive uropathy. Small cyst of the right kidney. 3. Small cysts of the liver. 4. Aortoiliac atherosclerosis. No aneurysm. 5. Degenerative changes of the spine, sacroiliac joints and both hips. Compression deformity of the L5 vertebral body appears to be chronic. S/P ERCP and EGD with dilation (06/14/16)-----> mild duodenitis, dilation, normal EGD otherwise. CBD stones, s/p sphincterotomy ampulla dilatation and stone removal. Pathology with gastric antral mucosal biopsies with mild acute and chronic gastritis negative for intestinal metaplasia, bebe stain negative for helicobacter. LFTs are improving, last checked on 06/16 and were trending down at that point. GS following, S/P Lap. Cholecystectomy, POD # 3. LFT's trending down. Tolerating diet. - Cholelithiasis. S/P Lap. Cholecystectomy, POD #3 - Dysphagia, Foreign body esophagus. No prior issues with this. Was eating chicken and al[place]ian fries from [employer] when a piece of chicken became lodged in her upper esophagus. Initially, she states she was not able to get anything down, but states this has since improved.S/P EGD with dilation, no foreign body found. - Leukocytosis. WBC 12.6. T. Max 99.7 - COPD/ONOFRE. Per primary PLAN: - Diet per GS - PPI - Lactulose x 1 - FU WONG 2 weeks with LFTs in one week - S/P Lap. Cholecystectomy - GI will sign off, please consult as needed - Pt seen and examined by Dr. Mitchell and myself and this note is written on her behalf Svetlana Kelley Jun 21, 2016 10:06
[2016-06-21] MEDS ORDERED: LACTULOSE SYRUP 20 GM/30 ML CUP PO ONE (10:15)
--- NOTE | 2016-06-21 12:55 | MP ---
cc: YUKI CORONEL M.D. DATE OF SURGERY 06/18/2016 PROCEDURE Laparoscopic cholecystectomy with attempted intraoperative cholangiogram. PREOPERATIVE DIAGNOSIS Previous choledocholithiasis with cholecystitis. POSTOPERATIVE DIAGNOSIS Previous choledocholithiasis with cholecystitis. ANESTHESIA General endotracheal. SURGEON MD Mike ESTIMATED BLOOD LOSS 100 mL. FLUIDS 900 mL crystalloid. COMPLICATIONS None. DRAINS CISCO x 1. SPECIMEN Gallbladder and stones to pathology. FINDINGS Stones and cystic duct, but very short cystic duct abutting up against the common duct. PROCEDURE IN DETAIL The patient was taken to the operating room and placed on the operating table in the supine position. After an adequate level of endotracheal anesthesia was achieved, the abdomen was prepped and draped in the usual fashion. Time-out was taken confirming the correct patient, site and procedure to be performed. The skin and subcutaneous tissue was infiltrated with local anesthetic and a supraumbilical incision was made and carried through the fascia sharply. The peritoneal cavity was entered and the peritoneum visualized. There were no adhesions to the anterior abdominal wall at this point. A 12-mm balloon trocar was inserted and the balloon inflated. The abdomen was insufflated. The patient was placed in reverse Trendelenburg position. Three 5-mm trocars were placed with the first to the right of the falciform ligament and second and third in the right subcostal region. All entered the abdominal cavity under direct vision uneventfully. The fundus of the gallbladder was then grasped and retracted upward. The cystic duct was circumferentially dissected as was the cystic artery. The cystic artery was doubly clipped proximally, singly clipped on the gallbladder side and divided. The cystic duct was quite dilated and at this point a small cystic ductotomy was made to obtain a cholangiogram and confirmed that the common duct was clear. A number of small stones were removed from the cystic duct and milked backwards. After flushing of the cystic duct, a cholangiocatheter was placed and a cholangiogram was attempted. Contrast did not flow out of the cystic duct at all and, as the cystic duct is relatively short and thick, further attempts were felt to be hazardous and would require common duct exploration. As the patient previously had a sphincterotomy and ERCP, she was felt to be at minimal risk for retained stones and at this point the cystic duct was transected and a 0-PDS Endoloop was cinched down at the base of the duct. This did not narrow the common duct and was felt to provide good closure of the cystic ductotomy and secure the cystic duct and minimize any leakage. At this point the cystic duct stump was rinsed and seen to be hemostatic and without drainage. The cystic artery stump was hemostatic as well. The gallbladder was then dissected off the liver bed with electrodissection. The gallbladder was placed into an EndoCatch device and removed via the umbilical port while observing via the upper 5-mm trocar site. The laparoscope was once again placed into the supraumbilical port and the upper abdomen visualized. Small bleeding points on the liver were controlled with electrocautery. Copious irrigation was then utilized and the liver bed, cystic artery stump and cystic duct stump were all seen to be clean and dry. All irrigation was aspirated. A Glenn-Wolff drain was brought in via the upper 5-mm trocar site and out via the most lateral 5-mm trocar site and fixed to the skin with a 3-0 nylon suture. The drain was placed in the gallbladder bed as well as near the cystic duct stump. At this point insufflation was discontinued and the remaining upper abdominal trocar was removed. No bleeding was noted from the trocar sites. The laparoscope and supraumbilical port were then removed. The fascia was closed in the supraumbilical incision site with 0 Vicryl suture in both simple interrupted and [id number] fashion. The remaining local anesthetic was injected into all of the trocar sites and the skin closed at each of the trocar sites with 4-0 Vicryl suture in an interrupted buried fashion. All trocar sites and the cholangiocatheter site were dressed with Steri-Strips. The patient was extubated and taken back to the recovery room in stable condition. She tolerated the procedure well. MD BELTRAN Myers/SSB /7:36 AM /12:49 PM
--- NOTE | 2016-06-21 13:32 | HHI.PR ---
Subjective Remarks Temp max 99.7 RUQ abd. pain better no n/v no bm passing flatus weak but getting out of bed to chair voiding okay no cp no sob CISCO output minimal, some drainage from insertion site, less today at home Objective Objective Results - Vital Signs Date Time Temp Pulse Resp B/P Pulse Ox O2 Delivery O2 Flow Rate FiO2 06/21/16 12:19 99.1 90 18 142/67 95 06/21/16 11:57 95 Nasal Cannula 3.00 06/21/16 09:50 Nasal Cannula 3.00 06/21/16 08:00 99.7 111 18 185/88 95 06/21/16 04:00 97.2 86 18 160/78 93 06/21/16 00:00 97.2 79 18 198/83 96 06/20/16 21:06 Nasal Cannula 3.00 06/20/16 20:00 99.7 91 18 193/96 97 06/20/16 18:07 97 Nasal Cannula 3.00 06/20/16 16:28 99.5 80 18 140/67 97 I/O 06/20/16 06/20/16 06/20/16 06/21/16 06/21/16 06/21/16 07:00 15:00 23:00 07:00 15:00 23:00 Intake Total 1430 ml 610 ml Output Total 600 ml 15 ml Balance 830 ml 610 ml -15 ml Intake Oral 480 ml 610 ml IV Total 950 ml Output Urine Total 600 ml Drainage Total 15 ml # Voids 2 2 # Bowel Movements 0 Result Diagram: 06/19/16 1630 06/20/16 0700 Other Results Laboratory Tests Test 06/21/16 09:45 Nasal Screen MRSA (PCR) NEGATIVE ROS General: Weakness HEENT: No: Sore Throat, Dysphagia Cardiac: No: Chest Pain, Edema, Palpitations Pulmonary: SOB, Wheezing, No: Cough, Other GI: Abdominal Pain, No: BM, Diarrhea, N/V, Other /COMPUTER GRAPHIC DESIGNER: No: Dysuria, Urgency, Other Neuro/MS: No: Lightheaded, Confusion Psych: No: Anxiety, Depression Skin: No: Itching, Rash Physical Exam Physical Exam GENERAL: This is a well-nourished, well-developed patient, in no apparent distress. SKIN: No rashes, ecchymoses or lesions. Cool and dry. HEAD: Atraumatic. Normocephalic. No temporal or scalp tenderness. EYES: Pupils equal round and reactive. Extraocular motions intact. No scleral icterus. No injection or drainage. ENT: Nose without bleeding, purulent drainage or septal hematoma. Throat without erythema, tonsillar hypertrophy or exudate. Uvula midline. Airway patent. NECK: Trachea midline. No JVD or lymphadenopathy. Supple, nontender, no meningeal signs. CARDIOVASCULAR: Regular rate and rhythm without murmurs, gallops, or rubs. RESPIRATORY: Diminished, poor inspiratory effort, mild exp. wheezing GASTROINTESTINAL: Abdomen soft, tender over right upper abdomen, CISCO to RUQ with serous drainage. MUSCULOSKELETAL: Extremities without clubbing, cyanosis, or edema. No joint tenderness, effusion, or edema noted. No calf tenderness. Negative Homans sign bilaterally. NEUROLOGICAL: Awake, alert oriented 3. Focal deficit. Urinary Catheter: No Vascular Central Line Catheter: No A/P Diagnosis: (1) Left flank pain (2) Choledocholithiasis (3) Dysphagia (4) GERD (gastroesophageal reflux disease) (5) ONOFRE (obstructive sleep apnea) (6) COPD (chronic obstructive pulmonary disease) (7) Hyperkalemia (8) Leukocytosis Assessment and Plan 75-year-old female admitted with left flank pain, CT of the abdomen and pelvis without contrast was done that showed cholelithiasis and choledocholithiasis, no murmurs small stone seen in the gallbladder, cystic duct, upper common bile. No perceptible acute inflammatory changes or definitive acute obstruction. There was no stone visualized in the lower duct or ampullary region. No renal stones or obstructive uropathy. Small cyst of the right kidney. A small cyst of the liver. Aortoiliac atherosclerosis. No aneurysm. Degenerative changes of the spine and sacroiliac joints in both hips noted. Compression deformity of L5 vertebral body which appears to be chronic. -Appreciate GI input, status post ERCP and sphincterotomy and balloon sweep removal of stones -GS input appreciated. Post op care -S/P laparoscopic cholecystectomy 06/18/16 -Tolerating diet, no BM, lactulose given -Pain management -Keep CISCO in place, cleared for discharge by surgery -GI cleared for discharge, recommends LFTs 1 week -LFTs trending down Reported dysphagia, piece a chicken became stuck to upper esophagus. Symptoms have now resolved -Nothing by mouth Status post EGD with esophageal dilatation, no foreign body noted -stable COPD, stable Oxygen at 2 L Duo nebs when necessary -Resume Symbicort GERD Continue PPI SCDs for DVT prophylaxis PPI for GI prophylaxis PT CM for dc planning, C with CISCO management Cleared for discharge by GS and GI stable, tolerating diet, pain well controlled. Diet-heart healthy Activity-as tolerated F/U surgery 10 days GI 2 weeks PCP 2 weeks D/W RN D/W Dr. Neff D/W pt. and This patient was seen by myself and Dr. Neff, this note is written on his behalf Discharge Planning 45 Problem Qualifiers (1) Dysphagia: Qualified Code: R13.10 - Dysphagia, unspecified type (2) GERD (gastroesophageal reflux disease): Qualified Code: K21.9 - Gastroesophageal reflux disease, esophagitis presence not specified (3) COPD (chronic obstructive pulmonary disease): Qualified Code: J44.9 - Chronic obstructive pulmonary disease, unspecified COPD type (4) Leukocytosis: Qualified Code: D72.829 - Leukocytosis, unspecified type Karen Ngo Jun 21, 2016 13:32
--- NOTE | 2016-06-21 13:40 | HHI.DS ---
Discharge Summary Admission Date Jun 13, 2016 at 21:25 Discharge Date: Jun 21, 2016 Admitting Diagnosis choledocholithiasis, COPD (1) Left flank pain (2) Choledocholithiasis (3) Dysphagia (4) GERD (gastroesophageal reflux disease) (5) ONOFRE (obstructive sleep apnea) (6) COPD (chronic obstructive pulmonary disease) (7) Hyperkalemia (8) Leukocytosis (9) Cholecystitis (10) Gallstones (11) Choledocholithiasis with obstruction Procedures status post ERCP and sphincterotomy and balloon sweep and removal of stones 06/14 S/P laparoscopic cholecystectomy 06/18/16 Brief History This a 75-year-old female with history of COPD, A. fib, hypertension, hyperlipidemia, GERD. Patient presented to the emergency room complaining of left flank pain. According to the patient, the pain started around 3 PM yesterday after she had woken up from sleeping. There was no radiation to the pain, nothing made the pain better or worse. It was sharp, stabbing. Denies any nausea, no vomiting. There was no change in bowel movement, no blood in the stool, no diarrhea. Pain was not exacerbated by meals. In the emergency room, patient was evaluated. A CT of the abdomen and pelvis without contrast was done that showed cholelithiasis and choledocholithiasis, no murmurs small stone seen in the gallbladder, cystic duct, upper common bile. No perceptible acute inflammatory changes or definitive acute obstruction. There was no stone visualized in the lower duct or ampullary region. No renal stones or obstructive uropathy. Small cyst of the right kidney. A small cyst of the liver. Aortoiliac atherosclerosis. No aneurysm. Degenerative changes of the spine grew iliac joints in both hips noted. Compression deformity of L5 vertebral body which appears to be chronic. Laboratory workup completed showed leukocytosis, WBC of 14 and mild elevation of AST. Patient also reported that while she was in the emergency room she had difficulty swallowing, a piece of chicken got stuck in the upper esophagus. This has been resolved now. She is able to swallow fluids now. Patient has been evaluated by gastroenterology, she is on route to having ERCP and EGD. At this time denies any chest pain, no shortness of breath. Has left flank pain to palpation. She is hemodynamically stable. Patient admitted for further evaluation and treatment. CBC/BMP: 06/19/16 1630 06/20/16 0700 Significant Findings Laboratory Tests Test 06/18/16 06/19/16 06/20/16 15:25 16:30 07:00 Red Blood Count 3.67 MIL/MM3 3.17 MIL/MM3 (4.00-5.30) (4.00-5.30) Hemoglobin 11.0 GM/DL 9.6 GM/DL (11.6-15.3) (11.6-15.3) Hematocrit 34.2 % 29.7 % (35.0-46.0) (35.0-46.0) Platelet Count 112 TH/MM3 116 TH/MM3 (150-450) (150-450) Neutrophils (%) (Auto) 86.9 % 81.0 % (16.0-70.0) (16.0-70.0) Lymphocytes (%) (Auto) 3.9 % 6.0 % (9.0-44.0) (9.0-44.0) Neutrophils # (Auto) 8.5 TH/MM3 10.2 TH/MM3 (1.8-7.7) (1.8-7.7) Lymphocytes # (Auto) 0.4 TH/MM3 0.8 TH/MM3 (1.0-4.8) (1.0-4.8) Potassium Level 3.3 MEQ/L (3.5-5.1) Carbon Dioxide Level 34.0 MEQ/L 34.6 MEQ/L 32.3 MEQ/L (21.0-32.0) (21.0-32.0) (21.0-32.0) Blood Urea Nitrogen 3 MG/DL (7-18) Creatinine 0.44 MG/DL 0.42 MG/DL (0.50-1.00) (0.50-1.00) Random Glucose 133 MG/DL (74-106) Calcium Level 8.1 MG/DL 8.1 MG/DL 8.1 MG/DL (8.5-10.1) (8.5-10.1) (8.5-10.1) Aspartate Amino Transf 76 U/L (15-37) 50 U/L (15-37) (AST/SGOT) Alanine Aminotransferase 74 U/L (10-53) 63 U/L (10-53) (ALT/SGPT) Alkaline Phosphatase 40 U/L (45-117) 43 U/L (45-117) Total Protein 5.1 GM/DL 4.7 GM/DL (6.4-8.2) (6.4-8.2) Albumin 2.2 GM/DL 2.0 GM/DL (3.4-5.0) (3.4-5.0) White Blood Count 12.6 TH/MM3 (4.0-11.0) Monocytes (%) (Auto) 9.2 % (0.0-8.0) Monocytes # (Auto) 1.2 TH/MM3 (0-0.9) Anion Gap 4 MEQ/L (5-15) Estimat Glomerular Filtration 88 ML/MIN (>89) Rate Phosphorus Level 2.2 MG/DL (2.5-4.9) Imaging Last Impressions Abdomen/Pelvis CT 06/21/16 0000 Signed Impressions: Service Date/Time: June 00:01 - CONCLUSION: Surgical drain overlies the gallbladder fossa. Small amount of free intraperitoneal air likely related to the procedure. Bilateral pleural effusion with basilar passive atelectasis. Fluid-filled distended vagina. Eliezer Young MD Abdomen X-Ray 06/18/16 0000 Signed Impressions: Service Date/Time: Saturday, June 18, 2016 15:58 - CONCLUSION: 1. No evidence of bowel obstruction, ileus, or perforation. 2. Degenerative changes and scoliosis of the thoracolumbar spine. 3. Degenerative changes involving the hip joints bilaterally. William Mcgrath MD GI Procedure 06/14/16 0000 Signed Impressions: Service Date/Time: June 13:43 - CONCLUSION: ERCP as above. Please refer to telephone information supervisor report for further description. Haseeb Merida MD Chest X-Ray 06/13/16 [id number] Signed Impressions: Service Date/Time: Monday, June 13, 2016 17:55 - CONCLUSION: Hyperexpanded lungs and mild bibasilar atelectasis. Haseeb Wall MD Hospital Course 75-year-old female admitted with left flank pain, CT of the abdomen and pelvis without contrast was done that showed cholelithiasis and choledocholithiasis, no murmurs small stone seen in the gallbladder, cystic duct, upper common bile. No perceptible acute inflammatory changes or definitive acute obstruction. There was no stone visualized in the lower duct or ampullary region. No renal stones or obstructive uropathy. Small cyst of the right kidney. A small cyst of the liver. Aortoiliac atherosclerosis. No aneurysm. Degenerative changes of the spine and sacroiliac joints in both hips noted. Compression deformity of L5 vertebral body which appears to be chronic. -Patient admitted, put on IV fluids and pain management Put on initial antibiotic -GI consulted for evaluation, workup was recommended -Appreciate GI input, status post ERCP and sphincterotomy and balloon sweep removal of stones - remain with significant right upper quadrant pain. General surgery consulted. -Surgery was recommended, S/P laparoscopic cholecystectomy 06/18/16 -Patient tolerated postop care well, had a CISCO in place Develop right upper quadrant pain that was severe postop, had imaging studies, no acute findings were noted. -Diet was advanced, she tolerated well, minimal nausea, no vomiting. -LFTs were followed, they trended down. GI clear for discharge and recommended follow-up LFTs in 1 week -Gen. surgery recommended to keep CISCO in place, cleared for discharge. Reported dysphagia, piece a chicken became stuck to upper esophagus. Symptoms resolved -Kept NPO initially Status post EGD with esophageal dilatation, no foreign body noted -stable COPD, stable Oxygen at 2 L Duo nebs when necessary -Resumed Symbicort GERD Continued PPI SCDs for DVT prophylaxis PPI for GI prophylaxis PT was ordered. Pt. noted weak, SNF recommended Cleared for dc by all consultants CM consult for DC planning. stable, tolerating diet, pain well controlled. Discharged to SNF in stable condition Diet-heart healthy Activity-as tolerated F/U surgery 10 days GI 2 weeks PCP 2 weeks Pt Condition on Discharge: Stable Discharge Disposition: Disch w/ Home Health Serv Discharge Instructions DIET: Follow Instructions for: Heart Healthy Diet Speech Therapy-Diet Recommends: Soft Activities you can perform: Weight Bearing as Ace Other Activity Instructions: keep CISCO in place Follow up Referrals: Gastroenterology - 2 Weeks @ [facility] - 10 Days with Jonathan Mckeon MD New Medications: Hydrocodone-Acetaminophen (Adin) 5-325 mg Tab 1-2 TAB PO Q4H PRN PAIN #25 Ref 0 TAB Continued Medications: Albuterol 18 GM Inh (Ventolin Hfa 18 GM Inh) 90 Mcg/Act Aer 2 PUFF INH Q4H PRN SHORTNESS OF BREATH #1 Ref 0 INHALER Budesonide-Formoterol Inh (Symbicort Inh) 160-4.5 Mcg/Act Aero 1 PUFF INH BID PRN #1 Ref 0 INHALER Fluoxetine (Fluoxetine) 40 Mg Cap 40 CAP PO DAILY #30 Ref 0 CAP Gabapentin (Gabapentin) 100 Mg Cap 100 MG PO BID #60 Ref 0 CAP Ipratropium-Albuterol Neb (Duoneb) 0.5-2.5 Mg/3 Ml Neb 2.5 NEBULE INH Q4HR NEB SHORTNESS OF BREATH #120 Ref 0 NEBULE Metoprolol Tartrate (Metoprolol Tartrate) 50 Mg Tab 50 MG PO BID #60 Ref 0 TAB Montelukast (Montelukast) 10 Mg Tab 10 MG PO HS #30 Ref 0 TAB Omeprazole (Omeprazole) 40 Mg Cap 40 MG PO DAILY #30 Ref 0 CAP Discontinued Medications: Oxycodone-Acetaminophen (Percocet) 10-325 mg Tab 1 TAB PO Q6H PRN PAIN Ref 0 TAB Prednisone (21) 10 mg tab Dose Pack (Prednisone (21) 10 mg tab Dose Pack) 10 Mg Pack 10 MG PO DIRECTED Inflammation #1 Ref 0 Karen Friend Jun 21, 2016 13:40
== END 2016-06-21 19:51 | DRG 419 ==
LOC: NEPC 17:11 → OBSVTOIN 21:25 → NEDA 21:25 → N05A 06-14 00:15
PROVIDERS: ADMIT Specialist; ATTEND Specialist
PROC: 0F798DZ Dilation of Common Bile Duct with Intraluminal Device, Via Natural or Artificial Opening Endoscopic (ICD-10-PCS; 2016-06-14)
PROC: BF121ZZ Fluoroscopy of Gallbladder using Low Osmolar Contrast (ICD-10-PCS; 2016-06-18)
PROC: 0FT44ZZ Resection of Gallbladder, Percutaneous Endoscopic Approach (ICD-10-PCS; principal; 2016-06-18 11:35)
DX: K80.40 Calculus of bile duct with cholecystitis, unspecified, without obstruction (principal); K76.89 Other specified diseases of liver; Z99.81 Dependence on supplemental oxygen; I48.91 Unspecified atrial fibrillation; R13.10 Dysphagia, unspecified; J44.9 Chronic obstructive pulmonary disease, unspecified; D64.9 Anemia, unspecified; E78.5 Hyperlipidemia, unspecified; E87.6 Hypokalemia; G47.33 Obstructive sleep apnea (adult) (pediatric); I10 Essential (primary) hypertension; I25.10 Atherosclerotic heart disease of native coronary artery without angina pectoris; I70.8 Atherosclerosis of other arteries; J45.909 Unspecified asthma, uncomplicated; K21.0 Gastro-esophageal reflux disease with esophagitis; K29.00 Acute gastritis without bleeding; K29.50 Unspecified chronic gastritis without bleeding; K29.80 Duodenitis without bleeding; R33.9 Retention of urine, unspecified; Z86.711 Personal history of pulmonary embolism; Z87.891 Personal history of nicotine dependence; Z91.81 History of falling; Z98.1 Arthrodesis status
CPT/HCPCS: 71010; 74000; 74176; 74177; 74330; 76000; 76937; 80048; 80053; 80076; 81001; 83690; 83735; 84100; 85025; 85027; 85610; 85730; 87641; 88304; 88305; 88312; 93005; 94664; 96374; 96375; 96376; C1769; C9113; J0131; J0690; J1170; J1610; J1644; J1885; J2270; J2370; J2405; J2543; J2710; J3010; J7030; Q9963; Q9967

== ENCOUNTER 2016-08-05 19:26 | Inpatient (IN) | payer MEDICARE, OTHER ==
[~2016-08-05] VITALS: Ht 167.6 cm; Wt 63.0 kg
[~2016-08-05 19:26] MED LIST changes: -ACET325 PO; -ALBU8I INH; -DUONSOL2 NEB; -ENOX40P SQ; -FLUO10TA PO; +FLUO40CA PO; +GABA100C4 PO; -HYDR10SO PO; +IPRASOL INH; -LOPR100T PO; -LORTA5 PO; +METO50TA PO; -MONT10 PO; +MONT10TA4 PO; +NORC5TAB PO; +OMEP40CA2 PO; -PERC10TA27 PO; -SULF-154 PO; +SYMB160A INH; -SYMB80AE INH; +VENTAER INH
[2016-08-05 19:34] VITALS: BP 127/66; PULSE 99; RESP 18; TEMP 99.6; O2SAT 92
[2016-08-05 19:40] VITALS: BP 127/66; PULSE 96; RESP 22; TEMP 99.6; O2SAT 92
[2016-08-05] MEDS ORDERED: SODIUM CHLOR 0.9% 1000 ML INJ 1,000 ML IV ONE (19:49)
[2016-08-05] MEDS ORDERED: SODIUM CHLOR 0.9% 1000 ML INJ 800 ML IV ONE (19:49)
[2016-08-05] MEDS ORDERED: SODIUM CHLORIDE 0.9% FLUSH 10 ML FLUSH IVF PRN (20:00)
[2016-08-05] MEDS ORDERED: cefTRIAXone INJ 1,000 MG in SODIUM CHLORIDE 0.9% INJ 100 ML IV ONE (20:00)
[2016-08-05] MEDS ORDERED: AZITHROMYCIN INJ 500 MG in SODIUM CHLOR 0.9% 250 ML INJ 250 ML IV ONE (20:00)
--- NOTE | 2016-08-05 20:02 | PD ---
HPI Chief Complaint: Respiratory Distress Time Seen by Provider: 19:39 Travel History International Travel<30 days: No Contact w/Intl Traveler<30days: No Traveled to known affect area: No History of Present Illness HPI The patient is a 75 year old female who presents to the [facility] emergency department with a history of shortness of breath that she reports is been going on for "a while". The patient unfortunately is a poor historian and has difficulty defining any time frames. She also has difficulty recalling any of the medications that she is normally on reporting that her usually gives them to her. According to ambulance services the patient had chest pain prior to arrival, however the patient denies any chest pain at this time. The patient was experiencing shortness of breath and had a blood pressure 210/90. The patient was given 60 mg of Lasix IV, sublingual nitroglycerin 2, 125 mg of Solu-Medrol IV, 2 albuterol nebulizers en route to this facility. The patient on my arrival to the room is saturating 93% on 2 L. The patient has a productive sounding cough on examination. She also reports that this is been present for a while. The patient reports that she was recently admitted to the hospital for laparoscopic cholecystectomy. She was discharged on Saturday by her report, however after reviewing the electronic medical records the patient was discharged from the hospital on June 21. The patient underwent laparoscopic cholecystectomy on June 18. The patient reports that she has been eating and drinking well. She denies having any vomiting or diarrhea. She reports that she has been moving her bowels regularly. The patient is unaware of having any prior fevers, however according to ambulance services the patient had an elevated temperature of 103 prior to arrival. The patient's temperature on arrival to this facility is 99.6. The patient denies any neck pain, chest pain, abdominal pain, vomiting, diarrhea, urinary symptoms, one-sided weakness, facial droop, changes in vision, or difficulty with word finding ability. PFSH Past Medical History Narrative Medical The patient's past medical history is obtained from review of the electronic medical record. The patient has a history of dysphagia and recent endoscopy in June of this year, history of cholelithiasis status post laparoscopic cholecystectomy in June of this year, history of COPD, atrial fibrillation, hypertension, hyperlipidemia, acid reflux. The patient reports that she quit smoking many years ago. The patient has a known compression deformity of L5 was noted on CT scan in June 2016 and appear to be chronic at that time. The patient had difficulty with dysphagia and underwent endoscopy with esophageal dilatation in June of this year. The patient's other past medical history is significant for arthritis, chronic neck and back pain, history of a pulmonary embolism after surgery, MRSA of the sputum and 2009, cervical spondylosis, chronic cervical myelopathy, history of pneumonia. Arthritis: No Asthma: Yes Atrial Fibrillation: Yes Anxiety: No Depression: Yes Heart Rhythm Problems: Yes (CARDIOVERTED FOR A-FIB WITH RVR) Cardiovascular Problems: Yes High Cholesterol: No Chest Pain: No Congestive Heart Failure: No COPD: Yes Cerebrovascular Accident: No Coronary Artery Disease: Yes Diabetes: No Diminished Hearing: No Gastrointestinal Disorders: Yes GERD: Yes Genitourinary: No Hepatitis: No Hiatal Hernia: No Hypertension: Yes Kidney Stones: No Musculoskeletal: Yes (ENTIRE LT SIDE OF BODY PAIN FROM VERTEBRAE) Neurologic: No Psychiatric: Yes Reproductive: No Respiratory: Yes (COPD) Migraines: No Myocardial Infarction: No Renal Failure: No Seizures: No Sleep Apnea: No Ulcer: Yes Tetanus Vaccination: < 5 Years Influenza Vaccination: Yes Past Surgical History Narrative Surgical The patient's past surgical history is significant for a laparoscopic cholecystectomy, left ankle ORIF, cervical spine fusion, right hip ORIF. Abdominal Surgery: Yes Appendectomy: No Cardiac Surgery: No Section: Yes Cholecystectomy: Yes Ear Surgery: No Endocrine Surgery: No Eye Surgery: No Genitourinary Surgery: No Gynecologic Surgery: Yes Neurologic Surgery: Yes (BLOOD CLOT IN SPINE) Oral Surgery: No Pacemaker: No Thoracic Surgery: No Other Surgery: Yes (CERV FUSION) Social History Alcohol Use: No Tobacco Use: No (Quit 6 years ago) Substance Use: No Allergies-Medications (Allergen,Severity, Reaction): Coded Allergies: *MDRO Multi-Drug Resistant Organism (Verified Adverse Reaction, Unknown, ) MRSA (sputum) - 03/2008 MRSA PCR Screens NEGATIVE - 06/19/16 & 06/21/16 CLEARED PER INFECTION CONTROL PROTOCOL Reported Meds & Prescriptions Reported Meds & Active Scripts Active Kenney (Hydrocodone-Acetaminophen) 5-325 mg Tab 1-2 Tab PO Q4H PRN Reported Omeprazole 40 Mg Cap 40 Mg PO DAILY Fluoxetine (Fluoxetine HCl) 40 Mg Cap 40 Cap PO DAILY Montelukast (Montelukast Sodium) 10 Mg Tab 10 Mg PO HS Gabapentin 100 Mg Cap 100 Mg PO BID Duoneb (Ipratropium-Albuterol Neb) 0.5-2.5 Mg/3 Ml Neb 2.5 Nebule INH Q4HR NEB Ventolin Hfa 18 GM Inh (Albuterol Sulfate) 90 Mcg/Act Aer 2 Puff INH Q4H PRN Symbicort Inh (Budesonide/Formoterol Fumarate) 160-4.5 Mcg/Act Aero 1 Puff INH BID PRN Metoprolol Tartrate 50 Mg Tab 50 Mg PO BID Review of Systems Except as stated in HPI: all other systems reviewed are Neg General / Constitutional: No: Fever Eyes: No: Visual changes HENT: Positive: Congestion, No: Headaches Cardiovascular: Positive: Dyspnea on exertion, No: Chest Pain or Discomfort Respiratory: Positive: Cough, Shortness of Breath, Wheezing Gastrointestinal: No: Nausea, Vomiting, Diarrhea, Abdominal Pain, Changes in Bowel Habits, Indigestion, Loss of Appetite Genitourinary: No: Dysuria Musculoskeletal: No: Pain Skin: No Rash Neurologic: No: Weakness, Focal Abnormalities, Change in Mentation, Slurred Speech, Sensory Disturbance Psychiatric: No: Depression Endocrine: No: Polydipsia Hematologic/Lymphatic: No: Easy Bruising Physical Exam Narrative General: The patient is a well-developed well-nourished female in no acute distress. Head and Neck exam: Head is normocephalic atraumatic. Eyes: EOMI, pupils are equal round and reactive to light. Nose: Midline septum with pink mucous membranes Mouth: Dentition unremarkable. Moist mucus membranes. Posterior oropharynx is not erythematous. No tonsillar hypertrophy. Uvula midline. Airway patent. Neck: No palpable lymphadenopathy. No nuchal rigidity. No thyromegaly. Cardiovascular: Regular rate and rhythm without murmurs, gallops, or rubs. No pulse deficit to the extremities as I'm obtaining is auscultation and palpation of her radial artery. Lungs: Decreased breath sounds in bilateral bases with accessory muscle use and inspiratory wheezes audible anteriorly in the left lung field. No crackles, no rhonchi audible. The patient has a productive sounding cough on examination. Abdomen: Soft, without tenderness to palpation in all 4 quadrants of the abdomen. No guarding, rebound, or rigidity. Normal bowel sounds are audible, no tenderness on palpation of McBurney's point. Negative Dia's sign. Extremities: No clubbing, cyanosis, or edema. 2+ pulses in all 4 extremities. No calf tenderness on palpation Back: No spinous process tenderness to palpation. No costovertebral angle tenderness to palpation. Neurologic Exam: Cranial nerves 2-12 were intact on exam. Strength is 5/5 in all 4 extremities. No sensory deficits noted. Skin Exam: No rash noted. Intact skin that is warm and dry. Data Data Last Documented VS Vital Signs Date Time Temp Pulse Resp B/P Pulse Ox O2 Delivery O2 Flow Rate FiO2 08/05/16 21:50 97 Nasal Cannula 2.00 08/05/16 19:40 99.6 96 22 127/66 Orders Electrocardiogram (08/05/16 19:49) Complete Blood Count With Diff (08/05/16 19:49) Comprehensive Metabolic Panel (08/05/16 19:49) Prothrombin Time / Inr (Pt) (08/05/16 19:49) Act Partial Throm Time (Ptt) (08/05/16 19:49) Lactic Acid Sepsis Protocol (08/05/16 19:49) Magnesium (Mg) (08/05/16 19:49) Lipase (08/05/16 19:49) Ckmb (Isoenzyme) Profile (08/05/16 19:49) Troponin I (08/05/16 19:49) Urinalysis - C+S If Indicated (08/05/16 19:49) Influenzae A/B Antigen (08/05/16 19:49) Blood Culture (08/05/16 19:49) Chest, Single Ap (08/05/16 19:49) Blood Glucose (08/05/16 19:49) Ecg Monitoring (08/05/16 19:49) Iv Access Insert/Monitor (08/05/16 19:49) Cath For Specimen (08/05/16 19:49) Oximetry (08/05/16 19:49) Oxygen Administration (08/05/16 19:49) Sodium Chlor 0.9% 1000 Ml Inj (Ns 1000 M (08/05/16 19:49) Sodium Chlor 0.9% 1000 Ml Inj (Ns 1000 M (08/05/16 19:49) B-Type Natriuretic Peptide (08/05/16 19:49) D-Dimer (08/05/16 19:49) Ceftriaxone Inj (Rocephin Inj) (08/05/16 20:00) Azithromycin Inj (Zithromax Inj) (08/05/16 20:00) Sodium Chloride 0.9% Flush (Ns Flush) (08/05/16 20:00) Albuterol-Ipratropium Neb (Duoneb Neb) (08/05/16 20:00) Urine Culture (08/05/16 20:10) Ct Pulmonary Angiogram (08/05/16 20:59) Admit Order (Ed Use Only) (08/05/16 21:50) Labs Laboratory Tests Test 08/05/16 08/05/16 19:55 20:10 White Blood Count 22.1 TH/MM3 Red Blood Count 3.62 MIL/MM3 Hemoglobin 11.0 GM/DL Hematocrit 33.2 % Mean Corpuscular Volume 91.7 FL Mean Corpuscular Hemoglobin 30.5 PG Mean Corpuscular Hemoglobin 33.3 % Concent Red Cell Distribution Width 15.3 % Platelet Count 297 TH/MM3 Mean Platelet Volume 8.3 FL Neutrophils (%) (Auto) 87.8 % Lymphocytes (%) (Auto) 3.1 % Monocytes (%) (Auto) 7.9 % Eosinophils (%) (Auto) 1.0 % Basophils (%) (Auto) 0.2 % Neutrophils # (Auto) 19.4 TH/MM3 Lymphocytes # (Auto) 0.7 TH/MM3 Monocytes # (Auto) 1.7 TH/MM3 Eosinophils # (Auto) 0.2 TH/MM3 Basophils # (Auto) 0.0 TH/MM3 CBC Comment DIFF FINAL Differential Comment Prothrombin Time 11.0 SEC Prothromb Time International 1.0 RATIO Ratio Activated Partial 31.7 SEC Thromboplast Time D-Dimer Quantitative (PE/DVT) 0.59 MG/L FEU Sodium Level 133 MEQ/L Potassium Level 4.3 MEQ/L Chloride Level 94 MEQ/L Carbon Dioxide Level 31.8 MEQ/L Anion Gap 7 MEQ/L Blood Urea Nitrogen 9 MG/DL Creatinine 0.39 MG/DL Estimat Glomerular Filtration 161 ML/MIN Rate Random Glucose 118 MG/DL Lactic Acid Level 0.8 mmol/L Calcium Level 8.9 MG/DL Magnesium Level 1.7 MG/DL Total Bilirubin 0.4 MG/DL Aspartate Amino Transf 18 U/L (AST/SGOT) Alanine Aminotransferase 18 U/L (ALT/SGPT) Alkaline Phosphatase 109 U/L Total Creatine Kinase 30 U/L Troponin I LESS THAN 0.02 NG/ML B-Type Natriuretic Peptide 112 PG/ML Total Protein 6.6 GM/DL Albumin 2.7 GM/DL Lipase 78 U/L Urine Color LIGHT-YELLOW Urine Turbidity HAZY Urine pH 6.0 Urine Specific [place] 1.008 Urine Protein NEG mg/dL Urine Glucose (UA) NEG mg/dL Urine Ketones NEG mg/dL Urine Occult Blood NEG Urine Nitrite NEG Urine Bilirubin NEG Urine Urobilinogen LESS THAN 2.0 MG/DL Urine Leukocyte Esterase LARGE Urine RBC 0-3 /hpf Urine WBC 9-14 /hpf Urine WBC Clumps FEW Urine Squamous Epithelial > 8 /hpf Cells Urine Bacteria RARE /hpf Microscopic Urinalysis Comment CATH-CULTURE IND MDM Medical Decision Making Medical Screen Exam Complete: Yes Emergency Medical Condition: Yes Medical Record Reviewed: Yes Interpretation(s) Last Impressions CT Angiography 08/05/[id number] Signed Impressions: Service Date/Time: Friday, August 05, 2016 22:42 - CONCLUSION: 1. Severe emphysema. 2. Patchy density in the right lung including subcentimeter nodules. A followup CT chest in 3 months. 3. No evidence for pulmonary embolism. Simon Hyde MD Chest X-Ray [id number]/05/[id number] Signed Impressions: Service Date/Time: Friday, August 05, 2016 20:03 - CONCLUSION: Bibasilar densities greater right lower lobe could be infiltrate. Simon Hyde MD Differential Diagnosis Pneumonia, versus pulmonary embolism, versus sepsis of undetermined origin, versus urinary tract infection, versus ingestive heart failure Narrative Course During the course of the patients emergency department visit, the patients history, examination, and differential diagnosis were reviewed with the patient. The patient had IV access obtained and blood work sent for analysis. The patient was placed on a bus driver/monitor with oximetry and blood pressure monitoring. An EKG was done on arrival. The patient's EKG shows a sinus rhythm heart rate of 96, no acute ST segment elevation, T waves are inverted in V1, V2, V3, no ST segment depression. QRS duration is 97 ms, QTC 405 ms. The patient was initially provided Rocephin 1 g IV, Zithromax 500 IV, after blood cultures 2 were drawn, lactic acid was ordered. The patient will be given a 30 mL per KG IV fluid bolus for suspected sepsis. The patients laboratory studies were reviewed and remarkable for a white count of 22.1, hemoglobin 11, platelets 297 with 87.8 neutrophils, lymphocytes 3.1. CMP is remarkable for sodium of 133, chloride 94, creatinine 0.39, glucose 118, initial set of cardiac enzymes were within normal limits, BNP 112, lipase 78, PT PTT within normal limits, d-dimer is 0.59, therefore CTA to rule out PE was ordered. Urinalysis reveals large leukocyte esterase, 9014 wbc's, few wbc clumps, greater than 8 squamous epithelial cells, rare bacteria. Radiology studies were reviewed and remarkable for a chest x-ray that shows bibasilar densities greatest in the right lower lobe which could represent an infiltrate. CTA to rule out PE shows severe emphysema, patchy density in the right long including subcentimeter nodules, a follow-up CT chest in 3 months is recommended, no evidence for PE. The patients results were discussed with the patient, including the plan of care. I explained that further testing and/ or monitoring is indicated based on the patients history, examination, and/ or laboratory findings. Therefore, I recommended admission for additional evaluation. The patient expressed understanding and was agreeable with this plan. The patient was admitted to the hospital in stable condition and sent to a bed under the care of the [facility]. Sepsis Criteria SIRS Criteria (2 or more): Heart rate over 90, RR > 20 or PaCO2 < 32, WBC > 22588, < 4000 or > 10% bands Sepsis Criteria (SIRS+source): Infect source susp/known Physician Communication Physician Communication The patient's case was discussed with Dr. Neff who did agree to admit the patient to Dr. Marin's service. Diagnosis Primary Impression: Pneumonia Qualified Code: J18.1 - Pneumonia of right lower lobe due to infectious organism Admitting Information Admitting Physician Requests: Admit Caryn Teran MD Aug 05, 2016 20:02
--- NOTE | 2016-08-05 20:10 | RADRPT ---
EXAM DATE/TIME: 08/05/2016 20:03 [facility] COMPARISON: CHEST SINGLE AP, June 13, 2016, 17:55. INDICATIONS : Chest pain, Shortness of breath. MEDICAL HISTORY : None. SURGICAL HISTORY : None. ENCOUNTER: Initial ACUITY: 1 day PAIN SCORE: 0/10 LOCATION: Bilateral chest FINDINGS: A single view of the chest demonstrates minimal basilar densities greater right lower lobe. Emphysema . Heart normal in size. Osseous structures are intact. CONCLUSION: Bibasilar densities greater right lower lobe could be infiltrate. Simon Hyde MD on August 05, 2016 at 20:05 Board Certified Radiologist. This report was verified electronically.
[2016-08-05 20:30] LABS: AUTOMATED NEUTROPHIL # 19.4 TH/MM3 (1.8-7.7); BASOPHIL % 0.2 % (0.0-2.0); EOSINOPHIL # 0.2 TH/MM3 (0-0.4); HEMATOCRIT 33.2 % (35.0-46.0); HEMO FLAGS DIFF FINAL; LYMPH % 3.1 % (9.0-44.0); LYMPHOCYTE # 0.7 TH/MM3 (1.0-4.8); MEAN CELL VOLUME 91.7 FL (80.0-100.0); MEAN CORPUSCULAR HEMOGLOBIN 30.5 PG (27.0-34.0); MEAN CORPUSCULAR HGB CONC 33.3 % (32.0-36.0); MONO % 7.9 % (0.0-8.0); NEUT % 87.8 % (16.0-70.0); PLATELET COUNT 297 TH/MM3 (150-450); RED BLOOD COUNT 3.62 MIL/MM3 (4.00-5.30); RED CELL DISTRIBUTION WIDTH 15.3 % (11.6-17.2); WHITE BLOOD COUNT 22.1 TH/MM3 (4.0-11.0)
[2016-08-05 20:35] LABS: BLOOD, URINE NEG (NEG); GLUCOSE,URINE NEG (NEG); KETONE, URINE NEG (NEG); NITRITE,URINE NEG (NEG); URINE COLOR LIGHT-YELLOW (YELLW/STRAW)
[2016-08-05 20:42] LABS: ALT (GPT) 18 U/L (10-53); ANION GAP 7 MEQ/L (5-15); AST (GOT) 18 U/L (15-37); BICARBONATE 31.8 MEQ/L (21.0-32.0); BLOOD UREA NITROGEN 9 MG/DL (7-18); CHLORIDE 94 MEQ/L (98-107); GLOMERULAR FILTRATION RATE 161 ML/MIN (>89); MAGNESIUM 1.7 MG/DL (1.5-2.5); POTASSIUM 4.3 MEQ/L (3.5-5.1); SODIUM (NA) 133 MEQ/L (136-145)
[2016-08-05 20:42] LABS: BACTERIA, URINE RARE /hpf; COMMENT (UR) CATH-CULTURE IND; CULTURE IF INDICATED CATH CULTURE IND; RBC, URINE 0-3 /hpf (0-3); SQUAMOUS EPITHELIAL CELL URINE > 8 /hpf (0-5)
[2016-08-05 20:43] LABS: COMMENT2 (UR) CATH-CULTURE IND
[2016-08-05 20:45] LABS: APTT (PATIENT) 31.7 SEC (24.3-30.1)
[2016-08-05 20:47] LABS: ALKALINE PHOSPHATASE 109 U/L (45-117); TOTAL BILIRUBIN ADULT 0.4 MG/DL (0.2-1.0)
[2016-08-05 20:49] LABS: CREATINE KINASE 30 U/L (26-192)
[2016-08-05] MEDS: RESP: ALBUTEROL 2.5 MG/IPRATROPIUM 0.5 MG NEB (SCH) INH (21:39)
[2016-08-05 21:50] VITALS: O2SAT 97
[2016-08-05] MEDS ORDERED: MAGNESIUM HYDROXIDE SUSP 30 ML CUP PO PRN (22:00)
[2016-08-05] MEDS ORDERED: BISACODYL 10 MG SUPP RECTAL PRN (22:00)
[2016-08-05] MEDS ORDERED: Vancomycin Consult Pharmacy 1 EA OTHER SCH (22:00)
[2016-08-05] MEDS ORDERED: SENNOSIDES 8.6 MG TAB PO PRN (22:00)
[2016-08-05] MEDS ORDERED: LACTULOSE SYRUP 20 GM/30 ML CUP PO PRN (22:00)
[2016-08-05] MEDS ORDERED: VANCOMYCIN INJ 1,000 MG in SODIUM CHLOR 0.9% 250 ML INJ 250 ML IV ONE (22:00)
[2016-08-05] MEDS ORDERED: SODIUM CHLORIDE 0.9% FLUSH 10 ML FLUSH IV FLUSH PRN (22:00)
[2016-08-05] MEDS ORDERED: NALOXONE HCL 0.4 MG/ML AMP IV PRN (22:00)
[2016-08-05 22:17] VITALS: BP 151/70; PULSE 90; RESP 18; O2SAT 94
[2016-08-05] MEDS: HEPARIN SODIUM - SQ 10,000 UNITS/ML VIAL SQ SCH (22:19)
[2016-08-05 22:33] VITALS: O2SAT 94
[2016-08-05] MEDS ORDERED: IOHEXOL 350 MG/ML 10 ML VIAL (for RAD DIAG) IV ONE (22:45)
[2016-08-05 22:52] VITALS: BP 151/70; PULSE 94; RESP 18; TEMP 98.4; O2SAT 94
--- NOTE | 2016-08-05 23:02 | RADRPT ---
EXAM DATE/TIME: 08/05/2016 22:42 [facility] COMPARISON: CT THORAX W CONTRAST, November 26, 2013, 16:40. INDICATIONS : Shortness of breath; rule out pulmonary embolus. IV CONTRAST: 80 cc Omnipaque 350 (iohexol) IV RADIATION DOSE: 22.61 CTDIvol (mGy) MEDICAL HISTORY : Hypertension. Cardiovascular disease Chronic obstructive pulmonary disease.Asthma, GERD SURGICAL HISTORY : Cholecystectomy. section. ENCOUNTER: Initial ACUITY: 1 day PAIN SCALE: 2/10 LOCATION: chest TECHNIQUE: Volumetric scanning of the chest was performed using a pulmonary embolism protocol MIP images were re constructed. Using automated exposure control and adjustment of the mA and/or kV according to patien t size, radiation dose was kept as low as reasonably achievable to obtain optimal diagnostic quality images. FINDINGS: PULMONARY ARTERIES: No filling defects are seen in the pulmonary arteries through the segmental level. LUNGS: There is severe emphysema. A 7-8 mm nodule in the right middle lobe posteriorly and laterally. Ground glass nodules seen more inferiorly. Minimal patchy densities right lower lobe.. PLEURAE: There is no pleural thickening or pleural effusion. MEDIASTINUM: There is good visualization of the great vessels of the middle mediastinum. No evidence of mediastin al or hilar adenopathy/mass. MUSCULOSKELETAL: Within normal limits for patient age. MISCELLANEOUS: The visualized upper abdominal organs demonstrate no acute abnormality. Hepatic lobe densities. CONCLUSION: 1. Severe emphysema. 2. Patchy density in the right lung including subcentimeter nodules. A followup CT chest in 3 months. 3. No evidence for pulmonary embolism. Simon Hyde MD on August 05, 2016 at 22:57 Board Certified Radiologist. This report was verified electronically.
[2016-08-06] VITALS (10 sets, daily range): BP systolic 119–155; BP diastolic 60–71; PULSE 85–97; RESP 18–21; TEMP 96.6–99.1; O2SAT 92–96
[2016-08-06] MEDS: RESP: ALBUTEROL 2.5 MG/IPRATROPIUM 0.5 MG NEB (PRN) NEB ×2 (02:24→08:08)
[2016-08-06] MEDS: CEFEPIME INJ 2,000 MG in SODIUM CHLORIDE 0.9% INJ 100 ML IV SCH ×2 (02:39→15:01)
[2016-08-06 04:46] LABS: AUTOMATED NEUTROPHIL # 17.3 TH/MM3 (1.8-7.7); BASOPHIL % 0.1 % (0.0-2.0); HEMATOCRIT 34.2 % (35.0-46.0); HEMO FLAGS DIFF FINAL; LYMPH % 1.6 % (9.0-44.0); LYMPHOCYTE # 0.3 TH/MM3 (1.0-4.8); MEAN CELL VOLUME 93.7 FL (80.0-100.0); MONO % 1.1 % (0.0-8.0); NEUT % 97.2 % (16.0-70.0); PLATELET COUNT 237 TH/MM3 (150-450); RED BLOOD COUNT 3.65 MIL/MM3 (4.00-5.30); RED CELL DISTRIBUTION WIDTH 15.5 % (11.6-17.2); WHITE BLOOD COUNT 17.8 TH/MM3 (4.0-11.0)
[2016-08-06 04:54] LABS: BICARBONATE 32.7 MEQ/L (21.0-32.0); POTASSIUM 4.1 MEQ/L (3.5-5.1)
--- NOTE | 2016-08-06 07:37 | HHI.HP ---
HPI Service [facility] Primary Care Physician Rodrigo Hollingsworth, DO Admission Diagnosis Pneumonia, shortness of breath Diagnoses: Chief Complaint: Short of breath, cough, wheezing. Travel History International Travel<30 Days: No Contact w/Intl Traveler <30 Da: No Traveled to Known Affected Are: No History of Present Illness This a 75-year-old female with history of COPD, A. fib, hypertension, hyperlipidemia, GERD. Recently admitted in June, underwent lap cholecystectomy. He went to rehabilitation after surgery and was discharged last Saturday. Patient returns to the emergency room complaining of increasing shortness of breath, associated with sputum that's green, wheezing, chest pain. Patient is chronically short of breath and on oxygen but this was more than usual. She denies any fever, no chills. She has nebulizers at home without any relief. When EMS arrived, she was noted with a blood pressure of 210/90. Because of her complaint of chest pain, she received 60 mg of Lasix IV, sublingual nitroglycerin 2, Solu-Medrol 125 IV and 2 nebulizer treatments. She was noted with fever of 103 per ambulance services. Sats on arrival to ED were 93%. Patient had a productive sounding cough. Patient states that she started having cough right before discharge from rehabilitation. Patient states she's been eating well, nausea, no vomiting, no diarrhea. She is not using a walker and her strength had been improving. In the emergency room, patient was evaluated. Laboratory workup was completed, CBC remarkable for leukocytosis, WBC 22.1. BMP unremarkable except for mild hyponatremia 133. Troponin was negative. BNP 112. Urinalysis positive for WBC in clumps and leukocyte esterase, culture pending. Denies any urinary symptoms. CTA notable for severe emphysema, patchy density in the right lung including subcentimeter nodules. No pulmonary emboli. Chest x-ray significant for by basilar densities greater right lower lobe could be infiltrate. Cultures were obtained , patient was started. Antibiotics. Her blood pressure is now down to 147/71. She is slightly tachycardic, heart rate 97. Indicates the chest pain is more significant when she coughs and it is constant. Patient is admitted for further evaluation and treatment. Review of Systems ROS Limitations: Poor Historian Respiratory: COMPLAINS OF: Cough, Wheezing, Sputum production, Shortness of breath Cardiovascular: COMPLAINS OF: Chest pain, Lower Extremity Edema Past Family Social History Past Medical History 1. COPD, oxygen dependent. During previous hospitalization she has been seen by Dr. Leslie but does not follow up with him regularly. 2. Pneumonia. 3. History of SVT and A-Fib with a questionable cardioversion. 4. Arthritis. 5. Previous falls with head contusions and subgaleal hematoma in 2012. 6. Chronic neck and back pain. 7. Obesity. 8. Pulmonary emboli after surgery. 9. MRSA of the sputum in 2008. 10. Prior tobacco abuse. 11. Degenerative disc disease. 12. Cervical spondylosis. 13. Chronic cervical myelopathy. Past Surgical History 1. Left ankle surgery. 2. Cervical spine fusion. 3 right hip ORIF January 2015 4. status post ERCP and sphincterotomy and balloon sweep and removal of stones 5. S/P laparoscopic cholecystectomy 06/18/16 Reported Medications Reported Meds & Active Scripts Active [place] (Hydrocodone-Acetaminophen) 5-325 mg Tab 1-2 Tab PO Q4H PRN Reported Omeprazole 40 Mg Cap 40 Mg PO DAILY Fluoxetine (Fluoxetine HCl) 40 Mg Cap 40 Cap PO DAILY Montelukast (Montelukast Sodium) 10 Mg Tab 10 Mg PO HS Gabapentin 100 Mg Cap 100 Mg PO BID Duoneb (Ipratropium-Albuterol Neb) 0.5-2.5 Mg/3 Ml Neb 2.5 Nebule INH Q4HR NEB Ventolin Hfa 18 GM Inh (Albuterol Sulfate) 90 Mcg/Act Aer 2 Puff INH Q4H PRN Symbicort Inh (Budesonide/Formoterol Fumarate) 160-4.5 Mcg/Act Aero 1 Puff INH BID PRN Metoprolol Tartrate 50 Mg Tab 50 Mg PO BID Allergies: Coded Allergies: *MDRO Multi-Drug Resistant Organism (Verified Adverse Reaction, Unknown, ) MRSA (sputum) - 03/2008 MRSA PCR Screens NEGATIVE - 06/19/16 & 06/21/16 CLEARED PER INFECTION CONTROL PROTOCOL Active Ordered Medications Inpatient Medications Albuterol/ Ipratropium (Duoneb Neb) 1 ampule Q6HR NEB PRN NEB SOB/COUGH Last administered on 08/06/16t 02:24; Start 08/06/16 at 01:15 Azithromycin/ Sodium Chloride (Zithromax Inj/ NS 250 ml Inj) 250 ml @ 250 mls/ hr ONCE ONCE IV Last administered on 08/05/16 21:18; Start 08/05/16 at 20:00; Stop 08/05/16 at 20:59; Status DC Bisacodyl (Dulcolax Supp) 10 mg DAILY PRN RECTAL SEVERE CONSITIPATION; Start at 22:00 Cefepime HCl 2000 mg/Sodium Chloride 100 ml @ 200 mls/hr Q12H IV Last administered on 08/06/16 02:39; Start 08/06/16 at 02:00 Ceftriaxone Sodium 1000 mg/ Sodium Chloride 100 ml @ 200 mls/hr ONCE ONCE IV Last administered on 08/05/16 20:16; Start 08/05/16 at 20:00; Stop 08/05/16 at 20: 29; Status DC Heparin Sodium (Porcine) (Heparin Inj) 5,000 units Q12H SQ Last administered on 08/05/16 22:19; Start 08/05/16 at 22:00 Lactulose 30 ml 30 ml DAILY PRN PO SEVERE CONSITIPATION; Start 08/05/16 at 22:00 Magnesium Hydroxide (Milk Of [place]) 30 ml Q12H PRN PO MILD - MODERATE CONSTIPATION; Start 08/05/16 at 22:00 Miscellaneous Information "INFLUENZA VACCAINE OUT... ONCE ONCE .XX ; Start 08/06 at 10:00; Stop 08/06/16 at 10:01 Naloxone HCl (Narcan Inj) 0.4 mg UNSCH PRN IV SEE LABEL COMMENTS; Start at 22:00 Pharmacy Profile Note (Vancomycin Consult Pharmacy) 0 ml @ 0 mls/hr UNSCH OTHER ; Start 08/05/16 at 22:00 Pneumococcal Polyvalent Vaccine (Pneumovax-23 Inj) 25 mcg ONCE ONCE IM ; Start 08/07/16 at 10:00; Stop 08/07/16 at 10:01 Senna/Docusate Sodium (Gin-Colace) 1 tab BID PO ; Start 08/06/16 at 09:00 Sennosides (Senokot) 17.2 mg Q12H PRN PO MODERATE - SEVERE CONSTIPATION; Start 08/05/16 at 22:00 Sodium Chloride (NS Flush) 2 ml BID IV FLUSH ; Start 08/06/16 at 09:00 Vancomycin HCl 1000 mg/Sodium Chloride 250 ml @ 250 mls/hr ONCE ONCE IV Last administered on 08/05/16t 22:26; Start 08/05/16 at 22:00; Stop 08/05/16 at 22:59; Status DC Family History Reviewed, noncontributory Social History The patient is , lives with her . She uses a walker occasionally but is very sedentary. does all the cooking and takes care of her. She does not drink any alcohol. She has two grown children. She quit smoking approximately 10 years ago. She was a heavy smoker of one pack a day for 40-50 years. Physical Exam Vital Signs Vital Signs Date Time Temp Pulse Resp B/P Pulse Ox O2 Delivery O2 Flow Rate FiO2 08/06/16 07:10 98.1 97 20 147/71 95 08/06/16 04:20 98.3 88 18 119/60 96 08/06/16 00:00 99.1 90 20 155/67 92 08/05/16 22:52 98.4 94 18 151/70 94 2 08/05/16 22:33 94 Nasal Cannula 2 08/05/16 22:17 90 18 151/70 94 Nasal Cannula 2 08/05/16 21:50 97 Nasal Cannula 2.00 08/05/16 21:20 98 Nasal Cannula 2 08/05/16 19:40 99.6 96 22 127/66 92 Nasal Cannula 2 08/05/16 19:40 96 25 92 Nasal Cannula 2 08/05/16 19:34 99.6 99 18 127/66 92 Physical Exam GENERAL: This is a well-nourished, well-developed patient, chronically ill appearing SKIN: No rashes, ecchymoses or lesions. Cool and dry. HEAD: Atraumatic. Normocephalic. No temporal or scalp tenderness. EYES: Pupils equal round and reactive. Extraocular motions intact. No scleral icterus. No injection or drainage. ENT: Nose without bleeding, purulent drainage or septal hematoma. Throat without erythema, tonsillar hypertrophy or exudate. Uvula midline. Airway patent. NECK: Trachea midline. No JVD or lymphadenopathy. Supple, nontender, no meningeal signs. CARDIOVASCULAR: Regular rate and rhythm without murmurs, gallops, or rubs. RESPIRATORY: Coarse ronchi, exp. wheezes GASTROINTESTINAL: Abdomen soft, non-tender, nondistended. Abdominal incision from lap intact, no redness. No hepato-splenomegaly, or palpable masses. No guarding. MUSCULOSKELETAL: Extremities without clubbing, cyanosis. Bilat ankle edema, pedal pulses 1+. No joint tenderness, effusion, or edema noted. No calf tenderness. Negative Homans sign bilaterally. NEUROLOGICAL: Awake, and oriented x 3. No focal deficits. Laboratory Laboratory Tests Test 08/05/16 08/05/16 08/06/16 19:55 20:10 04:15 White Blood Count 22.1 17.8 Red Blood Count 3.62 3.65 Hemoglobin 11.0 10.9 Hematocrit 33.2 34.2 Mean Corpuscular Volume 91.7 93.7 Mean Corpuscular Hemoglobin 30.5 30.0 Mean Corpuscular Hemoglobin 33.3 32.0 Concent Red Cell Distribution Width 15.3 15.5 Platelet Count 297 237 Mean Platelet Volume 8.3 8.1 Neutrophils (%) (Auto) 87.8 97.2 Lymphocytes (%) (Auto) 3.1 1.6 Monocytes (%) (Auto) 7.9 1.1 Eosinophils (%) (Auto) 1.0 0.0 Basophils (%) (Auto) 0.2 0.1 Neutrophils # (Auto) 19.4 17.3 Lymphocytes # (Auto) 0.7 0.3 Monocytes # (Auto) 1.7 0.2 Eosinophils # (Auto) 0.2 0.0 Basophils # (Auto) 0.0 0.0 CBC Comment DIFF FINAL DIFF FINAL Differential Comment Prothrombin Time 11.0 Prothromb Time International 1.0 Ratio Activated Partial 31.7 Thromboplast Time D-Dimer Quantitative (PE/DVT) 0.59 Sodium Level 133 137 Potassium Level 4.3 4.1 Chloride Level 94 98 Carbon Dioxide Level 31.8 32.7 Anion Gap 7 6 Blood Urea Nitrogen 9 9 Creatinine 0.39 0.37 Estimat Glomerular Filtration 161 171 Rate Random Glucose 118 161 Lactic Acid Level 0.8 Calcium Level 8.9 8.6 Magnesium Level 1.7 Total Bilirubin 0.4 Aspartate Amino Transf 18 (AST/SGOT) Alanine Aminotransferase 18 (ALT/SGPT) Alkaline Phosphatase 109 Total Creatine Kinase 30 Troponin I LESS THAN 0.02 B-Type Natriuretic Peptide 112 Total Protein 6.6 Albumin 2.7 Lipase 78 Urine Color LIGHT-YELLOW Urine Turbidity HAZY Urine pH 6.0 Urine Specific [place] 1.008 Urine Protein NEG Urine Glucose (UA) NEG Urine Ketones NEG Urine Occult Blood NEG Urine Nitrite NEG Urine Bilirubin NEG Urine Urobilinogen LESS THAN 2.0 Urine Leukocyte Esterase LARGE Urine RBC 0-3 Urine WBC 9-14 Urine WBC Clumps FEW Urine Squamous Epithelial > 8 Cells Urine Bacteria RARE Microscopic Urinalysis Comment CATH-CULTURE IND Date/Time Procedure Status Source Growth 08/05/16 20:29 Influenza Types A,B Antigen (RANDY) - Final Complete Nasal Aspirate NEGATIVE FOR FLU A AND B ANTIGEN.... 08/05/16 20:10 Urine Culture Received Urine Catheterized Urine Pending 08/05/16 19:55 Aerobic Blood Culture Received Blood Peripheral Pending 08/05/16 19:55 Anaerobic Blood Culture Received Blood Peripheral Pending Result Diagram: 08/06/16 0415 08/06/16 [address] Angiography 08/05/162058 Signed Impressions: Service Date/Time: Friday, August 05, 2016 22:42 - CONCLUSION: 1. Severe emphysema. 2. Patchy density in the right lung including subcentimeter nodules. A followup CT chest in 3 months. 3. No evidence for pulmonary embolism. Simon Hyde MD Chest X-Ray 08/05/161948 Signed Impressions: Service Date/Time: Friday, August 05, 2016 20:03 - CONCLUSION: Bibasilar densities greater right lower lobe could be infiltrate. Simon Hyde MD Assessment and Plan Problem List: (1) Pneumonia (2) Leukocytosis (3) COPD (chronic obstructive pulmonary disease) (4) CAD (coronary artery disease) (5) UTI (urinary tract infection) (6) ONOFRE (obstructive sleep apnea) (7) GERD (gastroesophageal reflux disease) Assessment and Plan Admit to Dr. Marin 75-year-old female with significant history of COPD oxygen dependent, recently discharged from rehabilitation facility 1 week ago. Presented to the emergency room with coughing, wheezing, chest pain, sputum production. Pneumonia, possibly community-acquired versus healthcare acquired, was in a rehabilitation facility until a week ago. Noted with significant leukocytosis, tachycardia, low-grade fever. COPD exacerbation ONOFRE -Continue with empiric antibiotics Follow cultures closely Continue with oxygen at 2 L to keep sats greater or 92 DuoNeb's 4 times a day and as needed -We will add Mucinex -Add Solu-Medrol 40 mg IV every 8 -Resume Symbicort UTI, culture pending -continue antibiotics and follow UC Recent admission for abdominal pain, status post lap cholecystectomy. Tolerating meals well, no nausea, no vomiting, no diarrhea Continue with present diet, monitor closely GERD Resume PPI SCDs and heparin for DVT prophylaxis PPI for GI prophylaxis PT evaluation and treatment Plan of care has been discussed with the patient, attending and registered nurse. Further management of the patient will be dependent on the hospital course This patient was seen by myself and Dr. Marin, this H&P is written on his behalf Physician Certification 2 Midnight Certification Type: Admission for Inpatient Services Order for Inpatient Services The services are ordered in accordance with Medicare regulations or non- Medicare payer requirements, as applicable. In the case of services not specified as inpatient-only, they are appropriately provided as inpatient services in accordance with the 2-midnight benchmark. Estimated LOS (days): 2 2 days is the estimated time the patient will need to remain in the hospital, assuming treatment plan goals are met and no additional complications. Post-Hospital Plan: Not yet determined Problem Qualifiers (1) Pneumonia: Qualified Code: J18.1 - Pneumonia of right lower lobe due to infectious organism (2) Leukocytosis: Qualified Code: D72.829 - Leukocytosis, unspecified type (3) COPD (chronic obstructive pulmonary disease): Qualified Code: J44.1 - Chronic obstructive pulmonary disease with acute exacerbation (4) CAD (coronary artery disease): Qualified Code: I25.118 - Coronary artery disease involving [place] coronary artery of [place] heart with other form of angina pectoris (5) UTI (urinary tract infection): Qualified Code: N39.0 - Urinary tract infection without hematuria, site unspecified (6) GERD (gastroesophageal reflux disease): Qualified Code: K21.9 - Gastroesophageal reflux disease without esophagitis Karen Ngo Aug 06, 2016 07:36
[2016-08-06] MEDS: methylPREDNISolone SOD SUCC 40 MG/1 ML VIAL IV PUSH SCH ×2 (09:18→16:58)
[2016-08-06] MEDS: SODIUM CHLORIDE 0.9% FLUSH 10 ML FLUSH IV FLUSH SCH ×2 (09:18→20:48)
[2016-08-06] MEDS: PANTOPRAZOLE SOD 40 MG DELAYED RELEASE TAB PO SCH (09:19)
[2016-08-06] MEDS: FLUoxetine HCL 20 MG CAP PO SCH (09:19)
[2016-08-06] MEDS: GABAPENTIN 100 MG CAP PO SCH ×2 (09:19→20:47)
[2016-08-06] MEDS: guaiFENesin E.R. 600 MG TAB PO SCH ×2 (09:19→20:47)
[2016-08-06] MEDS: METOPROLOL TARTRATE 50 MG TAB PO SCH ×2 (09:20→20:48)
[2016-08-06] MEDS: DOCUSATE SODIUM 50 MG/SENNA 8.6 MG TAB PO SCH ×2 (09:20→20:48)
[2016-08-06] MEDS: HEPARIN SODIUM - SQ 10,000 UNITS/ML VIAL SQ SCH ×2 (09:20→22:05)
[2016-08-06] MEDS ORDERED: MISCELLANEOUS NURSING INFORMATION ONE (10:00)
[2016-08-06] MEDS: BUDESONIDE-FORMOTEROL 160/4.5 MCG INHALER INH SCH ×2 (10:30→20:47)
[2016-08-06] MEDS: VANCOMYCIN 1,000 MG/NS 250 ML IV SCH ×4 (10:34→22:04)
[2016-08-06] MEDS: RESP: ALBUTEROL 2.5 MG/IPRATROPIUM 0.5 MG NEB (SCH) NEB ×3 (10:49→21:01)
--- NOTE | 2016-08-06 14:30 | EKG ---
Date Performed: 08/05/2016 Time Performed: 19:41:31 PTAGE: 75 years EKG: NORMAL Sinus rhythm Nonspecific anteroseptal T wave abnormalities, which are new since prior tracing PREVIOUS TRACING : 06/13/16 DOCTOR: Jr Teran Interpretating Date/Time 08/06/2016 14:37:46
[2016-08-06] MEDS: ACETAMINOPHEN/HYDROcodone 325 MG/5 MG TAB PO PRN ×2 (16:12→20:56)
[2016-08-06] MEDS: AZITHROMYCIN INJ 500 MG in SODIUM CHLOR 0.9% 250 ML INJ 250 ML IV SCH (20:40)
[2016-08-06] MEDS: MONTELUKAST SODIUM 10 MG TAB PO SCH (20:47)
[2016-08-06] MEDS ORDERED: PHARMACY ORDERED LAB ONE (21:45)
[2016-08-07] VITALS (9 sets, daily range): BP systolic 123–147; BP diastolic 58–70; PULSE 84–96; RESP 17–21; TEMP 97.3–99.4; O2SAT 92–98
[2016-08-07] MEDS: methylPREDNISolone SOD SUCC 40 MG/1 ML VIAL IV PUSH SCH ×3 (01:48→17:05)
[2016-08-07] MEDS: CEFEPIME INJ 2,000 MG in SODIUM CHLORIDE 0.9% INJ 100 ML IV SCH ×2 (01:48→13:17)
[2016-08-07] MEDS: ACETAMINOPHEN/HYDROcodone 325 MG/5 MG TAB PO PRN ×5 (01:54→22:23)
[2016-08-07] MEDS: RESP: ALBUTEROL 2.5 MG/IPRATROPIUM 0.5 MG NEB (SCH) NEB ×4 (07:12→19:48)
[2016-08-07] MEDS: BUDESONIDE-FORMOTEROL 160/4.5 MCG INHALER INH SCH ×2 (09:00→21:07)
[2016-08-07] MEDS: DOCUSATE SODIUM 50 MG/SENNA 8.6 MG TAB PO SCH ×2 (09:00→21:06)
[2016-08-07] MEDS: guaiFENesin E.R. 600 MG TAB PO SCH ×2 (09:06→21:06)
[2016-08-07] MEDS: PANTOPRAZOLE SOD 40 MG DELAYED RELEASE TAB PO SCH (09:06)
[2016-08-07] MEDS: GABAPENTIN 100 MG CAP PO SCH ×2 (09:06→21:06)
[2016-08-07] MEDS: METOPROLOL TARTRATE 50 MG TAB PO SCH ×2 (09:06→21:07)
[2016-08-07] MEDS: FLUoxetine HCL 20 MG CAP PO SCH (09:06)
[2016-08-07 09:07] LABS: HEMATOCRIT 34.2 % (35.0-46.0); MEAN CELL VOLUME 93.2 FL (80.0-100.0); MEAN CORPUSCULAR HEMOGLOBIN 29.6 PG (27.0-34.0); MEAN CORPUSCULAR HGB CONC 31.8 % (32.0-36.0); PLATELET COUNT 256 TH/MM3 (150-450); RED BLOOD COUNT 3.67 MIL/MM3 (4.00-5.30); RED CELL DISTRIBUTION WIDTH 15.6 % (11.6-17.2); REVIEW FLAG FINAL; WHITE BLOOD COUNT 14.1 TH/MM3 (4.0-11.0)
[2016-08-07] MEDS: SODIUM CHLORIDE 0.9% FLUSH 10 ML FLUSH IV FLUSH SCH ×2 (09:07→21:07)
[2016-08-07] MEDS: HEPARIN SODIUM - SQ 10,000 UNITS/ML VIAL SQ SCH ×2 (09:27→21:07)
[2016-08-07] MEDS: VANCOMYCIN 1,000 MG/NS 250 ML IV SCH ×4 (09:27→23:13)
[2016-08-07 09:28] LABS: BICARBONATE 30.7 MEQ/L (21.0-32.0); POTASSIUM 3.9 MEQ/L (3.5-5.1)
[2016-08-07] MEDS ORDERED: PNEUMOCOCCAL POLYVALENT INJ 25 MCG/0.5 ML SYR IM ONE (10:00)
--- NOTE | 2016-08-07 10:59 | HHI.PR ---
Subjective Remarks Increased cough, congested Still wheezing and mildly tachypneic No fever No chest pain States that she may not want to go home with home health care and prefers to go back to rehabilitation facility as her is frail and cannot help her very much. Objective Objective Results - Vital Signs Date Time Temp Pulse Resp B/P Pulse Ox O2 Delivery O2 Flow Rate FiO2 08/07/16 07:52 97.8 85 20 147/67 95 08/07/16 07:13 97 Nasal Cannula 2.00 08/07/16 04:18 97.3 86 19 129/62 96 08/07/16 00:18 97.3 85 18 123/58 95 08/06/16 21:22 88 08/06/16 21:04 98.6 96 21 133/61 94 08/06/16 21:02 96 Nasal Cannula 2.00 08/06/16 17:12 20 08/06/16 15:20 99.0 97 21 138/64 94 08/06/16 10:59 96.6 86 18 145/63 96 I/O 08/06/16 08/06/16 08/06/16 08/07/16 08/07/16 08/07/16 07:00 15:00 23:00 07:00 15:00 23:00 Intake Total 200 ml Balance 200 ml Intake Oral 200 ml # Voids 2 Result Diagram: 08/07/16 0830 08/07/16 [address] Angiography 08/05/162058 Signed Impressions: Service Date/Time: Friday, August 05, 2016 22:42 - CONCLUSION: 1. Severe emphysema. 2. Patchy density in the right lung including subcentimeter nodules. A followup CT chest in 3 months. 3. No evidence for pulmonary embolism. Simon Hyde MD Chest X-Ray 08/05/161948 Signed Impressions: Service Date/Time: Friday, August 05, 2016 20:03 - CONCLUSION: Bibasilar densities greater right lower lobe could be infiltrate. Simon Hyde MD Other Results Laboratory Tests Test 08/06/16 08/07/16 21:56 08:30 Vancomycin Level Trough 8.8 White Blood Count 14.1 Red Blood Count 3.67 Hemoglobin 10.9 Hematocrit 34.2 Mean Corpuscular Volume 93.2 Mean Corpuscular Hemoglobin 29.6 Mean Corpuscular Hemoglobin 31.8 Concent Red Cell Distribution Width 15.6 Platelet Count 256 Mean Platelet Volume 8.1 Sodium Level 136 Potassium Level 3.9 Chloride Level 98 Carbon Dioxide Level 30.7 Anion Gap 7 Blood Urea Nitrogen 12 Creatinine 0.39 Estimat Glomerular Filtration 161 Rate Random Glucose 129 Calcium Level 8.9 Date/Time Procedure Status Source Growth 08/05/16 20:29 Influenza Types A,B Antigen (RANDY) - Final Complete Nasal Aspirate NEGATIVE FOR FLU A AND B ANTIGEN.... 08/05/16 20:10 Urine Culture - Preliminary Resulted Urine Catheterized Urine NO GROWTH IN 24 HOURS. 08/05/16 19:55 Aerobic Blood Culture - Preliminary Resulted Blood Peripheral NO GROWTH IN 1 DAY 08/05/16 19:55 Anaerobic Blood Culture - Preliminary Resulted Blood Peripheral NO GROWTH IN 1 DAY ROS General: Weakness, No: Fatigue, Other HEENT: No: Sore Throat, Dysphagia Cardiac: No: Chest Pain, Edema, Palpitations Pulmonary: Cough, SOB, Wheezing, No: Other GI: No: Abdominal Pain, BM, Diarrhea, N/V /CRIMINAL JUSTICE TEACHER: No: Dysuria, Urgency Neuro/MS: No: Lightheaded, Confusion Psych: No: Anxiety, Depression Skin: No: Itching, Rash Physical Exam Physical Exam GENERAL: This is a well-nourished, well-developed patient, chronically ill appearing SKIN: No rashes, ecchymoses or lesions. Cool and dry. HEAD: Atraumatic. Normocephalic. No temporal or scalp tenderness. EYES: Pupils equal round and reactive. Extraocular motions intact. No scleral icterus. No injection or drainage. ENT: Nose without bleeding, purulent drainage or septal hematoma. Throat without erythema, tonsillar hypertrophy or exudate. Uvula midline. Airway patent. NECK: Trachea midline. No JVD or lymphadenopathy. Supple, nontender, no meningeal signs. CARDIOVASCULAR: Regular rate and rhythm without murmurs, gallops, or rubs. RESPIRATORY: Coarse ronchi, exp. wheezes GASTROINTESTINAL: Abdomen soft, non-tender, nondistended. Abdominal incision from lap intact, no redness. No hepato-splenomegaly, or palpable masses. No guarding. MUSCULOSKELETAL: Extremities without clubbing, cyanosis. Bilat ankle edema, pedal pulses 1+. No joint tenderness, effusion, or edema noted. No calf tenderness. Negative Homans sign bilaterally. NEUROLOGICAL: Awake, and oriented x 3. No focal deficits. Urinary Catheter: No Vascular Central Line Catheter: No A/P Diagnosis: (1) Pneumonia (2) Leukocytosis (3) COPD (chronic obstructive pulmonary disease) (4) CAD (coronary artery disease) (5) UTI (urinary tract infection) (6) ONOFRE (obstructive sleep apnea) (7) GERD (gastroesophageal reflux disease) Assessment and Plan 75-year-old female with significant history of COPD oxygen dependent, recently discharged from rehabilitation facility 1 week ago. Presented to the emergency room with coughing, wheezing, chest pain, sputum production. Pneumonia, possibly community-acquired versus healthcare acquired, was in a rehabilitation facility until a week ago. Noted with significant leukocytosis, tachycardia, low-grade fever. COPD exacerbation ONOFRE -Continue with empiric antibiotics Follow cultures closely, negative so far Continue with oxygen at 2 L to keep sats greater or 92 DuoNeb's 4 times a day and as needed/IV steroids -Continue Mucinex -Continue Symbicort -WBC trending down UTI, culture pending -continue antibiotics and follow UC, negative Recent admission for abdominal pain, status post lap cholecystectomy. Tolerating meals well, no nausea, no vomiting, no diarrhea Continue with present diet, monitor closely GERD continue PPI SCDs and heparin for DVT prophylaxis PPI for GI prophylaxis PT evaluation and treatment CM for dc planning, SNF placement not ready for dc yet, labs in am D/W RN D/W Dr. Marin D/W pt D/W CM This patient was seen by myself and Dr. Marin, this note is written on his behalf Problem Qualifiers (1) Pneumonia: Qualified Code: J18.1 - Pneumonia of right lower lobe due to infectious organism (2) Leukocytosis: Qualified Code: D72.829 - Leukocytosis, unspecified type (3) COPD (chronic obstructive pulmonary disease): Qualified Code: J44.1 - Chronic obstructive pulmonary disease with acute exacerbation (4) CAD (coronary artery disease): Qualified Code: I25.118 - Coronary artery disease involving [place] coronary artery of [place] heart with other form of angina pectoris (5) UTI (urinary tract infection): Qualified Code: N39.0 - Urinary tract infection without hematuria, site unspecified (6) GERD (gastroesophageal reflux disease): Qualified Code: K21.9 - Gastroesophageal reflux disease without esophagitis Gross,Karen G. [facility] Aug 07, 2016 10:59
[2016-08-07] MEDS: AZITHROMYCIN INJ 500 MG in SODIUM CHLOR 0.9% 250 ML INJ 250 ML IV SCH (21:06)
[2016-08-07] MEDS: MONTELUKAST SODIUM 10 MG TAB PO SCH (21:07)
[2016-08-07] MEDS ORDERED: PHARMACY ORDERED LAB ONE (21:45)
[2016-08-08] VITALS (10 sets, daily range): BP systolic 137–197; BP diastolic 63–89; PULSE 76–90; RESP 17–22; TEMP 97.2–99.5; O2SAT 96–98
[2016-08-08] MEDS: methylPREDNISolone SOD SUCC 40 MG/1 ML VIAL IV PUSH SCH ×3 (00:37→17:00)
[2016-08-08] MEDS: CEFEPIME INJ 2,000 MG in SODIUM CHLORIDE 0.9% INJ 100 ML IV SCH ×2 (02:12→14:59)
[2016-08-08] MEDS: RESP: ALBUTEROL 2.5 MG/IPRATROPIUM 0.5 MG NEB (SCH) NEB ×4 (04:57→20:06)
[2016-08-08] MEDS: ACETAMINOPHEN/HYDROcodone 325 MG/5 MG TAB PO PRN ×3 (05:43→17:50)
[2016-08-08 08:26] LABS: MEAN CELL VOLUME 92.1 FL (80.0-100.0); MEAN CORPUSCULAR HEMOGLOBIN 31.6 PG (27.0-34.0); MEAN CORPUSCULAR HGB CONC 34.4 % (32.0-36.0); PLATELET COUNT 241 TH/MM3 (150-450); RED BLOOD COUNT 3.47 MIL/MM3 (4.00-5.30); RED CELL DISTRIBUTION WIDTH 15.5 % (11.6-17.2); REVIEW FLAG FINAL; WHITE BLOOD COUNT 10.3 TH/MM3 (4.0-11.0)
[2016-08-08] MEDS: RESP: ALBUTEROL 2.5 MG/IPRATROPIUM 0.5 MG NEB (PRN) NEB (08:44)
[2016-08-08] MEDS: BUDESONIDE-FORMOTEROL 160/4.5 MCG INHALER INH SCH ×2 (09:00→20:32)
[2016-08-08] MEDS: guaiFENesin E.R. 600 MG TAB PO SCH ×2 (09:18→20:33)
[2016-08-08] MEDS: PANTOPRAZOLE SOD 40 MG DELAYED RELEASE TAB PO SCH (09:18)
[2016-08-08] MEDS: FLUoxetine HCL 20 MG CAP PO SCH (09:18)
[2016-08-08] MEDS: METOPROLOL TARTRATE 50 MG TAB PO SCH ×2 (09:18→22:39)
[2016-08-08] MEDS: GABAPENTIN 100 MG CAP PO SCH ×2 (09:18→20:34)
[2016-08-08] MEDS: DOCUSATE SODIUM 50 MG/SENNA 8.6 MG TAB PO SCH ×2 (09:18→20:34)
[2016-08-08] MEDS: HEPARIN SODIUM - SQ 10,000 UNITS/ML VIAL SQ SCH ×2 (09:19→22:35)
[2016-08-08] MEDS: VANCOMYCIN 1,000 MG/NS 250 ML IV SCH ×2 (09:19)
[2016-08-08] MEDS: SODIUM CHLORIDE 0.9% FLUSH 10 ML FLUSH IV FLUSH SCH ×2 (09:19→20:29)
[2016-08-08] MEDS ORDERED: PILL SPLITTER OTHER PRN (16:30)
--- NOTE | 2016-08-08 16:33 | HHI.PR ---
Subjective Remarks up in chair using incentive billy deep course cough exertional SOB alert, Objective Objective Results - Vital Signs Date Time Temp Pulse Resp B/P Pulse Ox O2 Delivery O2 Flow Rate FiO2 08/08/16 14:23 08/08/16 12:01 97.2 76 20 168/74 97 08/08/16 11:59 08/08/16 08:44 98 Nasal Cannula 2.00 08/08/16 08:22 97.2 87 21 187/85 96 08/08/16 07:32 78 08/08/16 06:18 142/70 08/08/16 04:45 98.6 90 17 197/89 97 08/08/16 00:08 98.6 78 17 151/77 96 08/07/16 20:24 97.6 84 17 125/62 92 08/07/16 20:00 96 08/07/16 17:59 I/O 08/07/16 08/07/16 08/07/16 08/08/16 08/08/16 08/08/16 07:00 15:00 23:00 07:00 15:00 23:00 Intake Total 120 ml 120 ml 0 ml 350 ml Balance 120 ml 120 ml 0 ml 350 ml Intake Oral 120 ml 120 ml IV Total 0 ml 350 ml # Voids 2 2 3 3 Result Diagram: 08/08/16 0745 08/07/16 0830 ROS General: Fatigue, Weakness, Other (10 point ROS done, positives, noted) Cardiac: Edema (bilateral 1+ ankle) Pulmonary: SOB (mild and exertional), Wheezing (mild) /TUBE BLOWER: Dysuria (UTI) Physical Exam Physical Exam PHYSICAL EXAMINATION GENERAL: This is a elderly female sitting up in chair. Mild SOB at rest. She is awake,responsive. HEAD: Normocephalic, atraumatic OROPHARYNGEAL: Oropharynx moist NECK: Supple. Thick Trachea midline without deviation. CARDIAC: Regular rhythm, regular rate, S1 and S2 are heard. Distant heart sounds LUNGS: Diminished to auscultation bilaterally. Mild expiratory wheeze, deep course rhonchi. Using incentive spirometry, low volumes ABDOMEN: Soft, round, nontender, bowel sounds present EXTREMITIES: 1+ bilateral lower extremity edema. Pulses intact NEUROLOGICAL: Appropriate response, equal after school tutor generalized weakness, speech is clear SKIN:Warm, dry Objective Remarks I'm still coughing some A/P Assessment and Plan (1) Pneumonia (2) Leukocytosis (3) COPD (chronic obstructive pulmonary disease) (4) CAD (coronary artery disease) (5) UTI (urinary tract infection) (6) ONOFRE (obstructive sleep apnea) (7) GERD (gastroesophageal reflux disease) Vital signs reviewed, patient afebrile BP systolic 187/ over 85, added hydralazine as needed for systolic greater than 180, diastolic greater than 100 Labs reviewed, leukocytosis resolved, also noted patient is on steroids which could contribute to elevation of WBC count. Pneumonia, possibly community-acquired versus healthcare acquired, recent admission to rehabilitation facility. COPD exacerbation, with history of obstructive sleep apnea, encouraged incentive spirometry, cough noted to be deep, course, guaifenesin thinning of secretions antibiotics vancomycin and azithromycin, duo nebs, encourage by mouth fluids, turning cough and deep breathe, O 2 continues, NC Cultures negative so far day 3. UTI, culture negative so far antibiotics continue History of recent lap cholecystectomy. Encourage activity, strengthening and mobility PT. Tolerating meals well, no nausea, no vomiting, no diarrhea Continue with present diet, monitor closely for any signs of aspiration or cough during eating GERD, Medical management, PPI SCDs and heparin for DVT prophylaxis PPI for GI prophylaxis PT evaluation and treatment CM for dc planning, SNF with continued rehabilitation D/W RN D/W Dr. Marin, seen on her behalf D/W pt Isela Ronquillo Aug 08, 2016 16:33 Isela Ronquillo Aug 08, 2016 16:33
[2016-08-08] MEDS ORDERED: hydrALAZINE HCL 20 MG/ML VIAL IV PUSH PRN (16:45)
[2016-08-08] MEDS: AZITHROMYCIN INJ 500 MG in SODIUM CHLOR 0.9% 250 ML INJ 250 ML IV SCH (20:25)
[2016-08-08] MEDS: MONTELUKAST SODIUM 10 MG TAB PO SCH (20:35)
[2016-08-09] VITALS (9 sets, daily range): BP systolic 147–183; BP diastolic 69–84; PULSE 69–81; RESP 16–18; TEMP 97.6–99.1; O2SAT 92–98
[2016-08-09] MEDS: VANCOMYCIN 1,000 MG/NS 250 ML IV SCH ×6 (01:29→22:47)
[2016-08-09] MEDS: methylPREDNISolone SOD SUCC 40 MG/1 ML VIAL IV PUSH SCH ×3 (01:35→20:20)
[2016-08-09] MEDS: ACETAMINOPHEN/HYDROcodone 325 MG/5 MG TAB PO PRN ×4 (01:36→22:48)
[2016-08-09] MEDS: CEFEPIME INJ 2,000 MG in SODIUM CHLORIDE 0.9% INJ 100 ML IV SCH ×2 (02:41→16:05)
[2016-08-09 07:42] LABS: AUTOMATED NEUTROPHIL # 8.1 TH/MM3 (1.8-7.7); BASOPHIL % 0.1 % (0.0-2.0); HEMATOCRIT 34.3 % (35.0-46.0); HEMO FLAGS DIFF FINAL; LYMPH % 4.1 % (9.0-44.0); LYMPHOCYTE # 0.4 TH/MM3 (1.0-4.8); MEAN CORPUSCULAR HEMOGLOBIN 30.2 PG (27.0-34.0); MEAN CORPUSCULAR HGB CONC 32.4 % (32.0-36.0); MONO % 3.3 % (0.0-8.0); NEUT % 92.5 % (16.0-70.0); PLATELET COUNT 218 TH/MM3 (150-450); RED BLOOD COUNT 3.69 MIL/MM3 (4.00-5.30); RED CELL DISTRIBUTION WIDTH 15.2 % (11.6-17.2); WHITE BLOOD COUNT 8.8 TH/MM3 (4.0-11.0)
[2016-08-09] MEDS: RESP: ALBUTEROL 2.5 MG/IPRATROPIUM 0.5 MG NEB (SCH) NEB ×4 (07:58→20:18)
[2016-08-09 08:15] LABS: BICARBONATE 35.3 MEQ/L (21.0-32.0); POTASSIUM 4.4 MEQ/L (3.5-5.1)
[2016-08-09] MEDS: BUDESONIDE-FORMOTEROL 160/4.5 MCG INHALER INH SCH ×2 (09:47→20:20)
[2016-08-09] MEDS: FLUoxetine HCL 20 MG CAP PO SCH (09:47)
[2016-08-09] MEDS: PANTOPRAZOLE SOD 40 MG DELAYED RELEASE TAB PO SCH (09:48)
[2016-08-09] MEDS: GABAPENTIN 100 MG CAP PO SCH ×2 (09:48→20:19)
[2016-08-09] MEDS: guaiFENesin E.R. 600 MG TAB PO SCH ×2 (09:48→20:19)
[2016-08-09] MEDS: METOPROLOL TARTRATE 50 MG TAB PO SCH ×2 (09:48→20:19)
[2016-08-09] MEDS: HEPARIN SODIUM - SQ 10,000 UNITS/ML VIAL SQ SCH ×2 (09:50→22:48)
[2016-08-09] MEDS: DOCUSATE SODIUM 50 MG/SENNA 8.6 MG TAB PO SCH ×2 (09:52→20:21)
--- NOTE | 2016-08-09 12:06 | HHI.PR ---
Subjective Remarks up in chair today and set on side of bed using incentive billy when necessary, S shortness of breath noted Still has coarse cough that seems to be loosening exertional SOB, mild improvement noted today with better lung volumes alert, (Isela Ronquillo) Objective Objective Results - Vital Signs Date Time Temp Pulse Resp B/P Pulse Ox O2 Delivery O2 Flow Rate FiO2 08/09/16 11:55 99.1 81 18 183/81 97 08/09/16 08:02 98.0 77 18 181/84 98 08/09/16 08:00 97 Nasal Cannula 2.00 08/09/16 04:00 97.7 71 18 169/79 97 08/09/16 00:00 98.0 73 16 164/76 97 08/08/16 20:06 96 Nasal Cannula 2.00 08/08/16 20:00 97.4 78 20 137/63 98 08/08/16 20:00 76 08/08/16 20:00 97.4 78 22 137/63 98 08/08/16 18:07 08/08/16 16:40 99.5 87 20 158/78 98 08/08/16 14:23 I/O 08/08/16 08/08/16 08/08/16 08/09/16 08/09/16 08/09/16 07:00 15:00 23:00 07:00 15:00 23:00 Intake Total 120 ml 0 ml 590 ml 600 ml Balance 120 ml 0 ml 590 ml 600 ml Intake Oral 120 ml 240 ml IV Total 0 ml 350 ml 600 ml # Voids 3 3 2 (Isela Ronquillo) Result Diagram: 08/09/16 0632 08/09/16 0632 ROS General: Fatigue, Weakness, Other (10 point ROS done positives noted) Cardiac: Other (mild systolic hypertension) Pulmonary: SOB (still more so exertional but improved) GI: BM (no BM in 2 days, discussed bowel regimen) (Isela Ronquillo) Physical Exam Physical Exam PHYSICAL EXAMINATION GENERAL: This is a chronically ill elderly female who appears to be in mild acute distress with her debility and shortness of breath. HEAD: Normocephalic, atraumatic, alopecia OROPHARYNGEAL: Oropharynx clear, dry. NECK: Supple. Trachea midline without deviation. CARDIAC: Regular rhythm, regular rate, S1 and S2 LUNGS: Diminished to auscultation bilaterally. Mild expiratory wheeze, coarse deep rhonchi, ABDOMEN: Soft, nontender, no organomegaly or masses. Bowel sounds are heard in all four quadrants. No rebound. No guarding. EXTREMITIES: no edema. NEUROLOGICAL: Patient mood and affect normal trends for her SKIN:Warm and dry Objective Remarks Breathing some better today (Isela Ronquillo) A/P Assessment and Plan (1) Pneumonia (2) Leukocytosis (3) COPD (chronic obstructive pulmonary disease) (4) CAD (coronary artery disease) (5) UTI (urinary tract infection) (6) ONOFRE (obstructive sleep apnea) (7) GERD (gastroesophageal reflux disease) Vital signs reviewed, patient afebrile BP systolic 183/81 , hydralazine as needed for systolic greater than 180, diastolic greater than 100 Labs reviewed, leukocytosis resolved, also noted patient is on steroids which could contribute to elevation of WBC count. CBC essentially unchanged, UTI cultures show no growth Check her labs as needed fairly stable today and unchanged Pneumonia, possibly community-acquired versus healthcare acquired, recent admission to rehabilitation facility. COPD exacerbation, with history of obstructive sleep apnea, encouraged incentive spirometry, cough noted to be deep, course, guaifenesin thinning of secretions, seems to be effective antibiotics vancomycin and azithromycin, duo nebs, encourage by mouth fluids, turning cough and deep breathe, O 2 Cultures negative UTI, culture negative so far antibiotics continue History of recent lap cholecystectomy. Encourage activity, strengthening and mobility PT. Tolerating meals well, no nausea, no vomiting, no diarrhea Continue with present diet, monitor closely for any signs of aspiration or cough during eating . Appetite has improved over the past 24 hours and patient is less short of breath GERD, Medical management, PPI SCDs and heparin for DVT prophylaxis PPI for GI prophylaxis PT evaluation and treatment CM for dc planning, SNF with continued rehabilitation, probable in the next day or 2 D/W RN D/W Dr. Marin, seen on her behalf D/W pt (Isela Ronquillo) Assessment and Plan patient seen and examined slowly improving monitor BP, antihypertensives adjusted leucocytosis improving continue current antibiotics for now decrease methylprednisolone to 40 mg i/v q12H plan of care discussed with patient, nursing staff plan of care discussed with Isela WREN (Donna Marin MD) Isela Ronquillo Aug 09, 2016 12:05 Donna Marin MD Aug 09, 2016 16:00
[2016-08-09] MEDS: SODIUM CHLORIDE 0.9% FLUSH 10 ML FLUSH IV FLUSH SCH ×2 (16:06→20:20)
[2016-08-09] MEDS: MONTELUKAST SODIUM 10 MG TAB PO SCH (20:19)
[2016-08-09] MEDS: AZITHROMYCIN INJ 500 MG in SODIUM CHLOR 0.9% 250 ML INJ 250 ML IV SCH (20:19)
[2016-08-10] VITALS (7 sets, daily range): BP systolic 136–179; BP diastolic 63–80; PULSE 64–77; RESP 18; TEMP 96.7–99; O2SAT 93–98
[2016-08-10] MEDS: CEFEPIME INJ 2,000 MG in SODIUM CHLORIDE 0.9% INJ 100 ML IV SCH ×2 (01:21→14:29)
[2016-08-10] MEDS: ACETAMINOPHEN/HYDROcodone 325 MG/5 MG TAB PO PRN ×3 (06:25→19:17)
[2016-08-10] MEDS: RESP: ALBUTEROL 2.5 MG/IPRATROPIUM 0.5 MG NEB (SCH) NEB ×2 (06:26→11:37)
[2016-08-10] MEDS: BUDESONIDE-FORMOTEROL 160/4.5 MCG INHALER INH SCH ×2 (08:52→20:41)
[2016-08-10] MEDS: guaiFENesin E.R. 600 MG TAB PO SCH ×2 (08:53→20:41)
[2016-08-10] MEDS: PANTOPRAZOLE SOD 40 MG DELAYED RELEASE TAB PO SCH (08:53)
[2016-08-10] MEDS: FLUoxetine HCL 20 MG CAP PO SCH (08:53)
[2016-08-10] MEDS: GABAPENTIN 100 MG CAP PO SCH ×2 (08:53→20:41)
[2016-08-10] MEDS: methylPREDNISolone SOD SUCC 40 MG/1 ML VIAL IV PUSH SCH (08:53)
[2016-08-10] MEDS: METOPROLOL TARTRATE 50 MG TAB PO SCH ×2 (08:54→20:41)
[2016-08-10] MEDS: DOCUSATE SODIUM 50 MG/SENNA 8.6 MG TAB PO SCH ×2 (09:00→20:41)
[2016-08-10] MEDS: SODIUM CHLORIDE 0.9% FLUSH 10 ML FLUSH IV FLUSH SCH ×2 (09:03→20:42)
[2016-08-10] MEDS: RESP: ALBUTEROL 2.5 MG/IPRATROPIUM 0.5 MG NEB (PRN) NEB (09:14)
[2016-08-10] MEDS: VANCOMYCIN 1,000 MG/NS 250 ML IV SCH ×2 (10:24)
[2016-08-10] MEDS: HEPARIN SODIUM - SQ 10,000 UNITS/ML VIAL SQ SCH ×2 (10:24→20:42)
--- NOTE | 2016-08-10 12:30 | HHI.PR ---
Subjective Remarks Resting in bed, has been up amb[place] with physical therapy. Tolerating fairly well Dual nebs continue, cough his course but seems to be looser in consistency exertional SOB, mild improvement noted today with better lung volumes alert, in rm, anxious over possible discharge soon (Isela Ronquillo) Objective Objective Results - Vital Signs Date Time Temp Pulse Resp B/P Pulse Ox O2 Delivery O2 Flow Rate FiO2 08/10/16 12:05 99.0 69 18 161/72 97 08/10/16 09:15 97 Nasal Cannula 2.00 08/10/16 08:00 98.9 72 18 169/76 97 08/10/16 04:00 97.1 71 18 179/77 96 08/10/16 00:00 98.0 73 18 142/67 93 08/09/16 20:20 95 Nasal Cannula 1.00 08/09/16 20:00 98.0 75 18 147/69 92 08/09/16 15:51 97.6 80 18 154/81 98 I/O 08/09/16 08/09/16 08/09/16 08/10/16 08/10/16 08/10/16 07:00 15:00 23:00 07:00 15:00 23:00 Intake Total 600 ml 240 ml 480 ml 120 ml Output Total 2 ml Balance 600 ml 240 ml 480 ml 118 ml Intake Oral 240 ml 480 ml 120 ml IV Total 600 ml Output Urine Total 2 ml # Voids 2 2 2 # Bowel Movements 1 (Isela Ronquillo) Result Diagram: 08/09/16 0632 08/09/16 0632 ROS General: Fatigue, Weakness, Other (10 point ROS done, debility with slow improvement) Pulmonary: Cough, SOB, Wheezing (minimal mild, improving) Neuro/MS: Other (Isela Ronquillo) Physical Exam Physical Exam PHYSICAL EXAMINATION GENERAL: This is a frail elderly female continues with coarse cough She is alert and awake, HEAD: Normocephalic atraumatic OROPHARYNGEAL: Oropharynx clear, coarse cough continues NECK: Supple. Trachea midline without deviation. CARDIAC: Regular rhythm, regular rate, S1 and S2 distant LUNGS: Diminished to auscultation bilaterally. Mild wheeze, coarse rhonchi ABDOMEN: Soft, nontender, no organomegaly or masses. Bowel sounds are heard in all four quadrants. No rebound. No guarding. EXTREMITIES: No edema. Pulses intact NEUROLOGICAL: Patient mood and affect appropriate. Generalized weakness mild debility SKIN:Warm and moist (Isela Ronquillo) A/P Assessment and Plan (1) Pneumonia (2) Leukocytosis (3) COPD (chronic obstructive pulmonary disease) (4) CAD (coronary artery disease) (5) UTI (urinary tract infection) (6) ONOFRE (obstructive sleep apnea) (7) GERD (gastroesophageal reflux disease) Vital signs reviewed, patient BP systolic 179/77, temp noted 99. Labs reviewed, leukocytosis resolved, also noted patient is on steroids which could contribute to elevation of WBC count. CBC essentially unchanged, UTI cultures show no growth Pneumonia, possibly community-acquired versus healthcare acquired, recent admission to rehabilitation facility. COPD exacerbation, with history of obstructive sleep apnea, encouraged incentive spirometry, cough noted to be deep, course, guaifenesin thinning of secretions, slow improvement antibiotics vancomycin and azithromycin, duo nebs [id number], encourage by mouth fluids, turning cough and deep breathe, O 2 Cultures negative UTI, culture negative so far antibiotics continue History of recent lap cholecystectomy. Encourage activity, strengthening and mobility PT. Tolerating meals well, no nausea, no vomiting, no diarrhea Continue with present diet, monitor closely for any signs of aspiration or cough during eating . Debility, ambulating with physical therapy and able to ambulate adequate distances with minimal assistance GERD, Medical management, PPI SCDs and heparin for DVT prophylaxis PPI for GI prophylaxis PT evaluation and treatment CM for dc planning, probable home health with assistance at home, probable in the next day or 2, has been very nervous about discharge. Supportive care D/W RN D/W Dr. Marin, seen on her behalf D/W pt (Isela Ronquillo) Assessment and Plan patient seen and examined feeling better BP high, Amlodipine increased switch to po prednisone and po antibiotics on oxygen at home anticipate discharge to home in am discussed with patient discussed with Isela WREN (Donna Marin MD) Isela Ronquillo Aug 10, 2016 12:30 Donna Marin MD Aug 10, 2016 16:10
--- NOTE | 2016-08-10 12:34 | HHI.FF ---
Face to Face Verification Diagnosis: (1) Anemia (2) COPD (chronic obstructive pulmonary disease) (3) CAD (coronary artery disease) (4) UTI (urinary tract infection) (5) ONOFRE (obstructive sleep apnea) (6) Pneumonia Physical Therapy Order: Evaluate and Treat, Improve ambulation, Strength and gait training Occupational Therapy Order: Evaluate and Treat, Gross motor coordination, Fine motor coordination I have seen patient Libia Schaffer on 08/10/16. My clinical findings support the need for the requested home health care services because: Ltd mobility - disease progression Patient has SOB Deconditioned w/ increased weakness High risk of falls I certify that my clinical findings support that this patient is homebound because: Hx COPD- exertion dyspnea/weakness Isela Ronquillo Aug 10, 2016 12:34
[2016-08-10] MEDS ORDERED: amLODIPine BESYLATE 5 MG TAB PO SCH (17:00)
[2016-08-10] MEDS: MONTELUKAST SODIUM 10 MG TAB PO SCH (20:40)
[2016-08-10] MEDS: AMOXICILLIN/CLAVULANATE K 500 MG TAB PO SCH (21:32)
[2016-08-11] VITALS (10 sets, daily range): BP systolic 106–145; BP diastolic 55–69; PULSE 62–75; RESP 18–20; TEMP 96.3–98.3; O2SAT 92–98
[2016-08-11] MEDS: RESP: ALBUTEROL 2.5 MG/IPRATROPIUM 0.5 MG NEB (PRN) NEB (04:04)
[2016-08-11] MEDS: ACETAMINOPHEN/HYDROcodone 325 MG/5 MG TAB PO PRN ×3 (04:29→20:46)
[2016-08-11] MEDS: DOCUSATE SODIUM 50 MG/SENNA 8.6 MG TAB PO SCH ×2 (09:00→20:45)
[2016-08-11] MEDS: GABAPENTIN 100 MG CAP PO SCH ×2 (10:09→20:46)
[2016-08-11] MEDS: PANTOPRAZOLE SOD 40 MG DELAYED RELEASE TAB PO SCH (10:11)
[2016-08-11] MEDS: METOPROLOL TARTRATE 50 MG TAB PO SCH ×2 (10:11→20:45)
[2016-08-11] MEDS: predniSONE 10 MG TAB PO SCH (10:12)
[2016-08-11] MEDS: FLUoxetine HCL 20 MG CAP PO SCH (10:12)
[2016-08-11] MEDS: guaiFENesin E.R. 600 MG TAB PO SCH ×2 (10:12→20:45)
[2016-08-11] MEDS: AMOXICILLIN/CLAVULANATE K 500 MG TAB PO SCH ×2 (10:12→20:45)
[2016-08-11] MEDS: BUDESONIDE-FORMOTEROL 160/4.5 MCG INHALER INH SCH ×2 (10:13→20:45)
[2016-08-11] MEDS: SODIUM CHLORIDE 0.9% FLUSH 10 ML FLUSH IV FLUSH SCH ×2 (10:13→20:45)
[2016-08-11] MEDS: HEPARIN SODIUM - SQ 10,000 UNITS/ML VIAL SQ SCH ×2 (10:13→23:09)
--- NOTE | 2016-08-11 12:09 | HHI.PR ---
Subjective Remarks Resting in bed, and sits up in bed in chair. Doing well with physical therapy this week with her mobility Shortness of breath is markedly improved but patient still has coarse cough, possible aspiration? No SOB at rest alert, Vital signs stable (Isela Ronquillo) Objective Objective Results - Vital Signs Date Time Temp Pulse Resp B/P Pulse Ox O2 Delivery O2 Flow Rate FiO2 08/11/16 09:47 95 Nasal Cannula 2.00 08/11/16 08:00 97.6 75 20 145/69 97 08/11/16 04:06 96 Nasal Cannula 2.00 08/11/16 04:00 98.0 74 18 120/56 92 08/11/16 00:00 96.3 62 18 132/64 97 08/10/16 20:00 96.7 64 18 136/63 98 08/10/16 15:57 98.9 77 18 170/80 95 08/10/16 12:05 99.0 69 18 161/72 97 I/O 08/10/16 08/10/16 08/10/16 08/11/16 08/11/16 08/11/16 07:00 15:00 23:00 07:00 15:00 23:00 Intake Total 120 ml 600 ml 240 ml 120 ml Output Total 2 ml 360 ml Balance 118 ml 600 ml 240 ml -240 ml Intake Oral 120 ml 600 ml 240 ml 120 ml Output Urine Total 2 ml 360 ml # Voids 3 4 2 (Isela Ronquillo) Result Diagram: 08/09/16 0632 08/11/16 0844 ROS General: Fatigue, Weakness (much improved over course of hospital stay), Other (10 point ROS done positives noted) HEENT: Other (speech eval for possible aspiration and swallow) Pulmonary: Cough (constant still has coarse rhonchi but patient not able to cough up), SOB (exertional only), Other (recent pneumonia improved) Neuro/MS: Other (debility continues to improve) (Isela Ronquillo) Physical Exam Physical Exam PHYSICAL EXAMINATION GENERAL: This is a chronically ill elderly female who appears to be in no acute distress at rest She is alert and awake, HEAD: Normocephalic OROPHARYNGEAL: Oropharynx clear NECK: Supple CARDIAC: Regular rhythm, regular rate, S1 and S2 are heard. LUNGS: Coarse breath sounds to auscultation bilaterally. no wheeze, positive for rhonchi, mild Route lower lung decreased ABDOMEN: Soft, nontender, no organomegaly or masses. Bowel sounds are Active EXTREMITIES: no edema. Extremities warm NEUROLOGICAL: Patient mood and affect okay, mild anxiety at times when patient notes some shortness of breath SKIN:Warm and moist (Isela Ronquillo) A/P Assessment and Plan (1) Pneumonia (2) Leukocytosis (3) COPD (chronic obstructive pulmonary disease) (4) CAD (coronary artery disease) (5) UTI (urinary tract infection) (6) ONOFRE (obstructive sleep apnea) (7) GERD (gastroesophageal reflux disease) Vital signs reviewed, normal trends Labs reviewed, leukocytosis resolved, also noted patient is on steroids which could contribute to elevation of WBC count. CBC essentially unchanged, UTI cultures show no growth Pneumonia, possibly community-acquired versus healthcare acquired, recent admission to rehabilitation facility. COPD exacerbation, with history of obstructive sleep apnea, encouraged incentive spirometry, cough noted to be deep, course, guaifenesin thinning of secretions, slow improvement, but continues with coarse rhonchi in spite of dual nebs and incentive spirometry. Respiratory to eval for possible NT suction. Chest x-ray today to repeat eval possible aspiration. Will get speech therapy to eval swallow, still possibly could be an aspiration pneumonia. antibiotics vancomycin and azithromycin, clinically patient is not showing any major signs of shortness of breath, she is afebrile and seems to be feeling better Cultures negative UTI, culture negative so far antibiotics continue History of recent lap cholecystectomy. Encourage activity, strengthening and mobility PT. Tolerating meals well, no nausea, no vomiting, no diarrhea Continue with present diet, monitor closely for any signs of aspiration or cough during eating . Debility, ambulating with physical therapy and able to ambulate adequate distances with minimal assistance GERD, Medical management, PPI SCDs and heparin for DVT prophylaxis PPI for GI prophylaxis PT evaluation and treatment CM for dc planning, probable home health with assistance at home according to PT note. is nervous about her transition him back home, evaluation today of her coarse cough and possible aspiration. Concerned that patient will need another hospital stay if this cough is not eradicated. D/W RN D/W Dr. Knott, seen on his behalf D/W pt (Isela Ronquillo) Assessment and Plan pt is seen & examined d/w PT d/w RN , per her get anxious at times xanax prn d/w isela, mir w above ambulate ss for d/c planning/ possible d/c home in am ,if CXR remained stable & no issues w swallowing see Orders will f/u (Shayla Knott MD) Isela Ronquillo Aug 11, 2016 12:08 Shayla Knott MD Aug 11, 2016 14:09
[2016-08-11] MEDS ORDERED: ALPRAZolam 0.25 MG TAB PO PRN (14:15)
--- NOTE | 2016-08-11 14:49 | RADRPT ---
EXAM DATE/TIME: 08/11/2016 14:30 [facility] COMPARISON: CT PULMONARY ANGIOGRAM, August 05, 2016, 22:42. INDICATIONS : Shortness of breath. MEDICAL HISTORY : Hypertension. Cardiovascular disease Chronic obstructive pulmonary SURGICAL HISTORY : Cholecystectomy. section. ENCOUNTER: Subsequent ACUITY: 1 week PAIN SCORE: 0/10 LOCATION: Bilateral chest FINDINGS: Mild pleural and parenchymal scarring again seen right lung base. No infiltrate, effusion or pneumoth orax. Heart size stable, within normal limits. Thoracic aorta is tortuous and atherosclerotic. CONCLUSION: No acute cardiopulmonary disease demonstrated. Haseeb Wall MD on August 11, 2016 at 14:47 Board Certified Radiologist. This report was verified electronically.
[2016-08-11] MEDS: MONTELUKAST SODIUM 10 MG TAB PO SCH (20:46)
[2016-08-12] VITALS (7 sets, daily range): BP systolic 116–161; BP diastolic 56–78; PULSE 66–75; RESP 18–20; TEMP 97.6–98.8; O2SAT 93–95
[2016-08-12] MEDS: ACETAMINOPHEN/HYDROcodone 325 MG/5 MG TAB PO PRN ×4 (01:38→21:14)
[2016-08-12 07:44] LABS: HEMATOCRIT 36.2 % (35.0-46.0); MEAN CELL VOLUME 92.3 FL (80.0-100.0); MEAN CORPUSCULAR HEMOGLOBIN 29.7 PG (27.0-34.0); MEAN CORPUSCULAR HGB CONC 32.1 % (32.0-36.0); PLATELET COUNT 219 TH/MM3 (150-450); RED BLOOD COUNT 3.92 MIL/MM3 (4.00-5.30); RED CELL DISTRIBUTION WIDTH 15.3 % (11.6-17.2); REVIEW FLAG FINAL; WHITE BLOOD COUNT 10.3 TH/MM3 (4.0-11.0)
[2016-08-12 08:10] LABS: BICARBONATE 39.2 MEQ/L (21.0-32.0)
[2016-08-12 08:15] LABS: POTASSIUM 2.9 MEQ/L (3.5-5.1)
[2016-08-12] MEDS ORDERED: POTASSIUM CHLORIDE 20 MEQ CONTROLLED RELEASE TAB PO ONE (08:45)
[2016-08-12] MEDS: guaiFENesin E.R. 600 MG TAB PO SCH ×2 (08:59→21:13)
[2016-08-12] MEDS: PANTOPRAZOLE SOD 40 MG DELAYED RELEASE TAB PO SCH (08:59)
[2016-08-12] MEDS: GABAPENTIN 100 MG CAP PO SCH ×2 (09:00→21:13)
[2016-08-12] MEDS: METOPROLOL TARTRATE 50 MG TAB PO SCH ×2 (09:00→21:14)
[2016-08-12] MEDS: DOCUSATE SODIUM 50 MG/SENNA 8.6 MG TAB PO SCH ×2 (09:00→21:13)
[2016-08-12] MEDS: FLUoxetine HCL 20 MG CAP PO SCH (09:01)
[2016-08-12] MEDS: AMOXICILLIN/CLAVULANATE K 500 MG TAB PO SCH ×2 (09:01→21:13)
[2016-08-12] MEDS: predniSONE 10 MG TAB PO SCH (09:01)
[2016-08-12] MEDS: SODIUM CHLORIDE 0.9% FLUSH 10 ML FLUSH IV FLUSH SCH ×2 (09:15→21:14)
[2016-08-12] MEDS: HEPARIN SODIUM - SQ 10,000 UNITS/ML VIAL SQ SCH ×2 (09:21→21:13)
[2016-08-12] MEDS: BUDESONIDE-FORMOTEROL 160/4.5 MCG INHALER INH SCH ×2 (09:26→21:15)
[2016-08-12] MEDS ORDERED: POTASSIUM CHLORIDE 8 MEQ CONTROLLED RELEASE TAB PO ONE (11:15)
--- NOTE | 2016-08-12 11:33 | HHI.DCPOC ---
Discharge Care Plan Diagnosis: (1) COPD (chronic obstructive pulmonary disease) (2) Pneumonia Your Health Problems Are: Chest Pain Cough Shortness of Breath Goals to Promote Your Health * To prevent worsening of your condition and complications * To maintain your health at the optimal level Directions to Meet Your Goals Take your medications as prescribed Follow your dietary instruction Follow activity as directed Keep your appointments as scheduled Take your immunizations and boosters as scheduled If your symptoms worsen call your PCP, if no PCP go to Urgent Care Center or Emergency Room Smoking is Dangerous to Your Health. Avoid second hand smoke Call the 24-hour hour crisis hotline for domestic abuse at Karen Ngo. [facility] Aug 12, 2016 11:33
[2016-08-12] MEDS ORDERED: AMLO10 PO (11:34)
[2016-08-12] MEDS ORDERED: guaiFENesin ER PO (11:34)
[2016-08-12] MEDS ORDERED: AUGM500T7 PO (11:34)
--- NOTE | 2016-08-12 11:38 | HHI.PR ---
Subjective Remarks less cough, minimal wheezing feels better no fever no cp chronic pain doesn't want to go to rehab, prefers to go home. Agreeable with [facility] Objective Objective Results - Vital Signs Date Time Temp Pulse Resp B/P Pulse Ox O2 Delivery O2 Flow Rate FiO2 08/12/16 10:13 67 08/12/16 10:02 95 Nasal Cannula 2.00 08/12/16 08:09 98.7 70 18 161/78 95 08/12/16 00:00 97.9 68 20 154/67 94 08/11/16 22:00 98.1 66 20 139/65 97 08/11/16 20:00 98.3 73 20 110/58 96 08/11/16 17:44 96 Nasal Cannula 2.00 08/11/16 16:35 20 08/11/16 16:00 98.3 73 20 106/55 96 08/11/16 12:00 97.9 68 20 132/62 97 I/O 08/11/16 08/11/16 08/11/16 08/12/16 08/12/16 08/12/16 07:00 15:00 23:00 07:00 15:00 23:00 Intake Total 120 ml 240 ml 120 ml Output Total 360 ml Balance -240 ml 240 ml 120 ml Intake Oral 120 ml 240 ml 120 ml Output Urine Total 360 ml # Voids 4 2 0 2 # Bowel Movements 0 0 Result Diagram: 08/12/16 0709 08/12/[address] Angiography 08/05/162058 Signed Impressions: Service Date/Time: Friday, August 05, 2016 22:42 - CONCLUSION: 1. Severe emphysema. 2. Patchy density in the right lung including subcentimeter nodules. A followup CT chest in 3 months. 3. No evidence for pulmonary embolism. Simon Hyde MD Chest X-Ray 08/05/161948 Signed Impressions: Service Date/Time: Friday, August 05, 2016 20:03 - CONCLUSION: Bibasilar densities greater right lower lobe could be infiltrate. Simon Hyde MD Other Results Laboratory Tests Test 08/12/16 07:09 White Blood Count 10.3 Red Blood Count 3.92 Hemoglobin 11.6 Hematocrit 36.2 Mean Corpuscular Volume 92.3 Mean Corpuscular Hemoglobin 29.7 Mean Corpuscular Hemoglobin 32.1 Concent Red Cell Distribution Width 15.3 Platelet Count 219 Mean Platelet Volume 8.3 Sodium Level 137 Potassium Level 2.9 Chloride Level 93 Carbon Dioxide Level 39.2 Anion Gap 5 Blood Urea Nitrogen 11 Creatinine 0.37 Estimat Glomerular Filtration 171 Rate Random Glucose 66 Calcium Level 7.9 ROS General: No: Fatigue, Weakness HEENT: No: Sore Throat, Dysphagia Cardiac: No: Chest Pain, Edema, Palpitations Pulmonary: Cough, SOB (better ), Wheezing (better) GI: No: Abdominal Pain, BM, Diarrhea, N/V /EVAPORATOR SUPERVISOR: No: Dysuria, Urgency Neuro/MS: No: Lightheaded, Confusion Psych: No: Anxiety, Depression Skin: No: Itching, Rash Physical Exam Physical Exam GENERAL: This is a well-nourished, well-developed patient, chronically ill appearing SKIN: No rashes, ecchymoses or lesions. Cool and dry. HEAD: Atraumatic. Normocephalic. No temporal or scalp tenderness. EYES: Pupils equal round and reactive. Extraocular motions intact. No scleral icterus. No injection or drainage. ENT: Nose without bleeding, purulent drainage or septal hematoma. Throat without erythema, tonsillar hypertrophy or exudate. Uvula midline. Airway patent. NECK: Trachea midline. No JVD or lymphadenopathy. Supple, nontender, no meningeal signs. CARDIOVASCULAR: Regular rate and rhythm without murmurs, gallops, or rubs. RESPIRATORY: faint exp. ronchi, minimal exp. wheezing GASTROINTESTINAL: Abdomen soft, non-tender, nondistended. Abdominal incision from lap intact, no redness. No hepato-splenomegaly, or palpable masses. No guarding. MUSCULOSKELETAL: Extremities without clubbing, cyanosis. Bilat ankle edema, pedal pulses 1+. No joint tenderness, effusion, or edema noted. No calf tenderness. Negative Homans sign bilaterally. NEUROLOGICAL: Awake, and oriented x 3. No focal deficits. Urinary Catheter: No Vascular Central Line Catheter: No A/P Diagnosis: (1) Pneumonia (2) Leukocytosis (3) COPD (chronic obstructive pulmonary disease) (4) CAD (coronary artery disease) (5) UTI (urinary tract infection) (6) ONOFRE (obstructive sleep apnea) (7) GERD (gastroesophageal reflux disease) Assessment and Plan 75-year-old female with significant history of COPD oxygen dependent, recently discharged from rehabilitation facility 1 week ago. Presented to the emergency room with coughing, wheezing, chest pain, sputum production. Pneumonia, possibly community-acquired versus healthcare acquired, was in a rehabilitation facility until a week ago. Noted with significant leukocytosis, tachycardia, low-grade fever. COPD exacerbation ONOFRE -continue with PO abx -repeat CXR 08/11, okay Follow cultures closely, negative so far Continue with oxygen at 2 L to keep sats greater or 92 DuoNeb's 4 times a day and as needed -continue PO steroids -Continue Mucinex -Continue Symbicort -overall improved, stable for dc. Continue PO abx, and steroids. No swallowing problems. UTI, culture pending -continue antibiotics and follow UC, no growth -asymptomatic. Recent admission for abdominal pain, status post lap cholecystectomy. Tolerating meals well, no nausea, no vomiting, no diarrhea Continue with present diet, monitor closely GERD continue PPI Hypokalemia, K 2.9 -replace K -repeat K at 1400, if ok plan to dc today SCDs and heparin for DVT prophylaxis PPI for GI prophylaxis PT evaluation and treatment, recommend either home vs SNF overall improved, afebrile, less cough and wheezing. CM for dc planning, pt. now wants to go home. States can help and she has DME at home if K level okay, plan to dc today D/W RN D/W Dr. Kontt D/W pt D/W CM This patient was seen by myself and Dr. Knott, this note is written on his behalf Problem Qualifiers (1) Pneumonia: Qualified Code: J18.1 - Pneumonia of right lower lobe due to infectious organism (2) Leukocytosis: Qualified Code: D72.829 - Leukocytosis, unspecified type (3) COPD (chronic obstructive pulmonary disease): Qualified Code: J44.1 - Chronic obstructive pulmonary disease with acute exacerbation (4) CAD (coronary artery disease): Qualified Code: I25.118 - Coronary artery disease involving [place] coronary artery of [place] heart with other form of angina pectoris (5) UTI (urinary tract infection): Qualified Code: N39.0 - Urinary tract infection without hematuria, site unspecified (6) GERD (gastroesophageal reflux disease): Qualified Code: K21.9 - Gastroesophageal reflux disease without esophagitis Karen Ngo Aug 12, 2016 11:38
[2016-08-12] MEDS ORDERED: PRED10 PO (11:41)
--- NOTE | 2016-08-12 11:42 | HHI.DS ---
Discharge Summary Admission Date Aug 05, 2016 at 21:51 Discharge Date: Aug 13, 2016 Admitting Diagnosis Pneumonia, shortness of breath (1) Pneumonia (2) Leukocytosis (3) COPD (chronic obstructive pulmonary disease) (4) CAD (coronary artery disease) (5) UTI (urinary tract infection) (6) ONOFRE (obstructive sleep apnea) (7) GERD (gastroesophageal reflux disease) CBC/BMP: 08/12/16 0709 08/12/16 0709 Significant Findings Laboratory Tests Test 08/11/16 08/12/16 08:44 07:09 Creatinine 0.25 MG/DL 0.37 MG/DL (0.50-1.00) (0.50-1.00) Red Blood Count 3.92 MIL/MM3 (4.00-5.30) Potassium Level 2.9 MEQ/L (3.5-5.1) Chloride Level 93 MEQ/L (98-107) Carbon Dioxide Level 39.2 MEQ/L (21.0-32.0) Random Glucose 66 MG/DL (74-106) Calcium Level 7.9 MG/DL (8.5-10.1) Imaging Last Impressions Chest X-Ray 08/11/16 0000 Signed Impressions: Service Date/Time: Thursday, August 11, 2016 14:30 - CONCLUSION: No acute cardiopulmonary disease demonstrated. Haseeb Wall MD CT Angiography 08/05/[id number] Signed Impressions: Service Date/Time: Friday, August 05, 2016 22:42 - CONCLUSION: 1. Severe emphysema. 2. Patchy density in the right lung including subcentimeter nodules. A followup CT chest in 3 months. 3. No evidence for pulmonary embolism. Simon Hyde MD Hospital Course This a 75-year-old female with history of COPD, A. fib, hypertension, hyperlipidemia, GERD. Recently admitted in June, underwent lap cholecystectomy. He went to rehabilitation after surgery and was discharged last Saturday. Patient returns to the emergency room complaining of increasing shortness of breath, associated with sputum that's green, wheezing, chest pain. Patient is chronically short of breath and on oxygen but this was more than usual. She denies any fever, no chills. She has nebulizers at home without any relief. When EMS arrived, she was noted with a blood pressure of 210/90. Because of her complaint of chest pain, she received 60 mg of Lasix IV, sublingual nitroglycerin 2, Solu-Medrol 125 IV and 2 nebulizer treatments. She was noted with fever of 103 per ambulance services. Sats on arrival to ED were 93%. Patient had a productive sounding cough. Patient states that she started having cough right before discharge from rehabilitation. Patient states she's been eating well, nausea, no vomiting, no diarrhea. She is not using a walker and her strength had been improving. In the emergency room, patient was evaluated. Laboratory workup was completed, CBC remarkable for leukocytosis, WBC 22.1. BMP unremarkable except for mild hyponatremia 133. Troponin was negative. BNP 112. Urinalysis positive for WBC in clumps and leukocyte esterase, culture pending. Denies any urinary symptoms. CTA notable for severe emphysema, patchy density in the right lung including subcentimeter nodules. No pulmonary emboli. Chest x-ray significant for by basilar densities greater right lower lobe could be infiltrate. Cultures were obtained , patient was started. Antibiotics. Her blood pressure is now down to 147/71. She is slightly tachycardic, heart rate 97. Indicates the chest pain is more significant when she coughs and it is constant. Patient was admitted for further evaluation and treatment for: (1) Pneumonia (2) Leukocytosis (3) COPD (chronic obstructive pulmonary disease) (4) CAD (coronary artery disease) (5) UTI (urinary tract infection) (6) ONOFRE (obstructive sleep apnea) (7) GERD (gastroesophageal reflux disease) During the course of the hospitalization, the following took place: 75-year-old female with significant history of COPD oxygen dependent, recently discharged from rehabilitation facility 1 week ago. Presented to the emergency room with coughing, wheezing, chest pain, sputum production. Pneumonia, possibly community-acquired versus healthcare acquired, was in a rehabilitation facility until a week ago. Noted with significant leukocytosis, tachycardia, low-grade fever. COPD exacerbation ONOFRE -admitted and put on IV empiric abx, which were later changed to PO -repeated CXR 08/11, cristiane Followed cultures closely, negative Continue with oxygen at 2 L to keep sats greater or 92 DuoNeb's 4 times a day and as needed ordered -initially IV steroids then changed to PO -Continued Mucinex -Continued Symbicort -overall improved, stable for dc. Continue PO abx, and steroids. No swallowing problems. UTI, -continue antibiotics and follow UC, no growth -asymptomatic. Recent admission for abdominal pain, status post lap cholecystectomy. Tolerating meals well, no nausea, no vomiting, no diarrhea Continue with present diet, monitor closely -tolerated diet well, no abd. pain GERD continue PPI Hypokalemia, K 2.9 -replaced K -repeated K 4.7 SCDs and heparin for DVT prophylaxis PPI for GI prophylaxis PT evaluation and treatment, recommend either home vs SNF. Pt. wanted [facility] overall improved, afebrile, less cough and wheezing. Discharge home today with [facility] F/U PCP, pulm Diet-heart healthy Activity-as tolerated Pt Condition on Discharge: Stable Discharge Disposition: Disch w/ Home Health Serv Discharge Instructions DIET: Follow Instructions for: Heart Healthy Diet Activities you can perform: Weight Bearing as Ace Follow up Referrals: PCP Follow-up New Medications: Amlodipine (Norvasc) 10 Mg Tab 10 MG PO DAILY Blood Pressure Management #30 Ref 0 TAB Amoxicillin-Clavulanate (Augmentin) 500-125 mg Tab 500 MG PO Q12HR Infection #10 TAB Prednisone (Prednisone) 10 Mg Tab 30 MG PO DAILY prednisone 30 mg orally daily x 2 days, then decrease to 20 mg orally daily x 4 days, then decrease to 10 mg orally daily x 4 days, then discontinue. Broncospasm #18 TAB ([guaiFENesin ER]) 600 MG TABCR 600 MG PO BID Chest Congestion/Cough #14 TAB.SR Continued Medications: Albuterol 18 GM Inh (Ventolin Hfa 18 GM Inh) 90 Mcg/Act Aer 2 PUFF INH Q4H PRN SHORTNESS OF BREATH #1 Ref 0 INHALER Budesonide-Formoterol Inh (Symbicort Inh) 160-4.5 Mcg/Act Aero 1 PUFF INH BID PRN #1 Ref 0 INHALER Fluoxetine (Fluoxetine) 40 Mg Cap 40 CAP PO DAILY #30 Ref 0 CAP Gabapentin (Gabapentin) 100 Mg Cap 100 MG PO BID #60 Ref 0 CAP Hydrocodone-Acetaminophen (Lefors) 5-325 mg Tab 1-2 TAB PO Q4H PRN PAIN #25 Ref 0 TAB Ipratropium-Albuterol Neb (Duoneb) 0.5-2.5 Mg/3 Ml Neb 2.5 NEBULE INH Q4HR NEB SHORTNESS OF BREATH #120 Ref 0 NEBULE Metoprolol Tartrate (Metoprolol Tartrate) 50 Mg Tab 50 MG PO BID #60 Ref 0 TAB Montelukast (Montelukast) 10 Mg Tab 10 MG PO HS #30 Ref 0 TAB Omeprazole (Omeprazole) 40 Mg Cap 40 MG PO DAILY #30 Ref 0 CAP Karen Ngo Aug 12, 2016 11:41
[2016-08-12] MEDS: MONTELUKAST SODIUM 10 MG TAB PO SCH (21:14)
[2016-08-13] VITALS: BP 130/59; PULSE 62; RESP 20; TEMP 97.9; O2SAT 96
[2016-08-13 04:00] VITALS: BP 143/66; PULSE 66; RESP 20; TEMP 98.1; O2SAT 97
[2016-08-13] MEDS: AMOXICILLIN/CLAVULANATE K 500 MG TAB PO SCH (07:56)
[2016-08-13] MEDS: FLUoxetine HCL 20 MG CAP PO SCH (07:56)
[2016-08-13] MEDS: guaiFENesin E.R. 600 MG TAB PO SCH (07:56)
[2016-08-13] MEDS: PANTOPRAZOLE SOD 40 MG DELAYED RELEASE TAB PO SCH (07:57)
[2016-08-13] MEDS: ACETAMINOPHEN/HYDROcodone 325 MG/5 MG TAB PO PRN (07:57)
[2016-08-13] MEDS: GABAPENTIN 100 MG CAP PO SCH (07:57)
[2016-08-13] MEDS: METOPROLOL TARTRATE 50 MG TAB PO SCH (07:57)
[2016-08-13 08:00] VITALS: BP 188/76; PULSE 64; PULSE 75; RESP 16; TEMP 97.1; O2SAT 97
[2016-08-13] MEDS: predniSONE 10 MG TAB PO SCH (08:02)
--- NOTE | 2016-08-13 08:07 | HHI.PR ---
Subjective Remarks no acute changes overnight feels great ready to go home minimal wheezing and cough no fever no cp Objective Objective Results - Vital Signs Date Time Temp Pulse Resp B/P Pulse Ox O2 Delivery O2 Flow Rate FiO2 08/13/16 04:00 98.1 66 20 143/66 97 08/13/16 00:00 97.9 62 20 130/59 96 08/12/16 22:14 18 08/12/16 20:00 97.6 72 20 122/59 95 08/12/16 16:05 98.8 75 20 118/61 93 08/12/16 12:03 98.2 66 20 116/56 94 08/12/16 10:13 67 08/12/16 10:02 95 Nasal Cannula 2.00 08/12/16 08:09 98.7 70 18 161/78 95 I/O 08/12/16 08/12/16 08/12/16 08/13/16 08/13/16 08/13/16 07:00 15:00 23:00 07:00 15:00 23:00 Intake Total 120 ml 720 ml 60 ml Balance 120 ml 720 ml 60 ml Intake Oral 120 ml 720 ml 60 ml # Voids 2 1 2 # Bowel Movements 0 1 0 0 Result Diagram: 08/12/16 0709 08/12/[address] Angiography 08/05/162058 Signed Impressions: Service Date/Time: Friday, August 05, 2016 22:42 - CONCLUSION: 1. Severe emphysema. 2. Patchy density in the right lung including subcentimeter nodules. A followup CT chest in 3 months. 3. No evidence for pulmonary embolism. Simon Hyde MD Chest X-Ray 08/05/161948 Signed Impressions: Service Date/Time: Friday, August 05, 2016 20:03 - CONCLUSION: Bibasilar densities greater right lower lobe could be infiltrate. Simon Hyde MD Other Results Laboratory Tests Test 08/12/16 16:07 Potassium Level 4.7 ROS Pulmonary: Cough (improved, less sputum ), SOB (very little ), Wheezing ( improved) Physical Exam Physical Exam GENERAL: This is a well-nourished, well-developed patient, chronically ill appearing SKIN: No rashes, ecchymoses or lesions. Cool and dry. HEAD: Atraumatic. Normocephalic. No temporal or scalp tenderness. EYES: Pupils equal round and reactive. Extraocular motions intact. No scleral icterus. No injection or drainage. ENT: Nose without bleeding, purulent drainage or septal hematoma. Throat without erythema, tonsillar hypertrophy or exudate. Uvula midline. Airway patent. NECK: Trachea midline. No JVD or lymphadenopathy. Supple, nontender, no meningeal signs. CARDIOVASCULAR: Regular rate and rhythm without murmurs, gallops, or rubs. RESPIRATORY: faint exp. wheezing, diminished at bases GASTROINTESTINAL: Abdomen soft, non-tender, nondistended. Abdominal incision from lap intact, no redness. No hepato-splenomegaly, or palpable masses. No guarding. MUSCULOSKELETAL: Extremities without clubbing, cyanosis. Bilat ankle edema, pedal pulses 1+. No joint tenderness, effusion, or edema noted. No calf tenderness. Negative Homans sign bilaterally. NEUROLOGICAL: Awake, and oriented x 3. No focal deficits. Urinary Catheter: No Vascular Central Line Catheter: No A/P Diagnosis: (1) Pneumonia (2) Leukocytosis (3) COPD (chronic obstructive pulmonary disease) (4) CAD (coronary artery disease) (5) UTI (urinary tract infection) (6) ONOFRE (obstructive sleep apnea) (7) GERD (gastroesophageal reflux disease) Assessment and Plan 75-year-old female with significant history of COPD oxygen dependent, recently discharged from rehabilitation facility 1 week ago. Presented to the emergency room with coughing, wheezing, chest pain, sputum production. Pneumonia, possibly community-acquired versus healthcare acquired, was in a rehabilitation facility until a week ago. Noted with significant leukocytosis, tachycardia, low-grade fever. COPD exacerbation ONOFRE -continue with PO abx -repeat CXR 08/11, okay Follow cultures closely, negative so far Continue with oxygen at 2 L to keep sats greater or 92 DuoNeb's 4 times a day and as needed -continue PO steroids -Continue Mucinex -Continue Symbicort -overall improved, stable for dc. Continue PO abx, and steroids. No swallowing problems. UTI, culture pending -continue antibiotics and follow UC, no growth -asymptomatic. Recent admission for abdominal pain, status post lap cholecystectomy. Tolerating meals well, no nausea, no vomiting, no diarrhea Continue with present diet, monitor closely GERD continue PPI Hypokalemia, K 2.9 -replaced K -repeat K 4.7 SCDs and heparin for DVT prophylaxis PPI for GI prophylaxis PT evaluation and treatment, recommend either home vs SNF overall improved, afebrile, less cough and wheezing. Discharge home today with [facility] F/U PCP, pulm Diet-heart healthy Activity-as tolerated D/W RN D/W Dr. Knott D/W pt D/W CM This patient was seen by myself and Dr. Knott, this note is written on his behalf Discharge Planning 45 Problem Qualifiers (1) Pneumonia: Qualified Code: J18.1 - Pneumonia of right lower lobe due to infectious organism (2) Leukocytosis: Qualified Code: D72.829 - Leukocytosis, unspecified type (3) COPD (chronic obstructive pulmonary disease): Qualified Code: J44.1 - Chronic obstructive pulmonary disease with acute exacerbation (4) CAD (coronary artery disease): Qualified Code: I25.118 - Coronary artery disease involving blackfeet coronary artery of blackfeet heart with other form of angina pectoris (5) UTI (urinary tract infection): Qualified Code: N39.0 - Urinary tract infection without hematuria, site unspecified (6) GERD (gastroesophageal reflux disease): Qualified Code: K21.9 - Gastroesophageal reflux disease without esophagitis Karen Ngo Aug 13, 2016 08:07
[2016-08-13 10:10] VITALS: BP 110/57; PULSE 69; RESP 18; TEMP 97; O2SAT 94
[2016-08-13 10:28] VITALS: O2SAT 93
[2016-08-13] MEDS: RESP: ALBUTEROL 2.5 MG/IPRATROPIUM 0.5 MG NEB (PRN) NEB (10:28)
== END 2016-08-13 11:05 | disposition home health service (06) | DRG 190 ==
LOC: NEPE 19:26 → NEDA 21:51 → NEPGCP 23:21 → N05A 08-06 19:06
PROVIDERS: ADMIT Internal Medicine; ATTEND Internal Medicine
DX: J44.0 Chronic obstructive pulmonary disease with (acute) lower respiratory infection (principal); J18.9 Pneumonia, unspecified organism; N39.0 Urinary tract infection, site not specified; E87.1 Hypo-osmolality and hyponatremia; Z99.81 Dependence on supplemental oxygen; I48.91 Unspecified atrial fibrillation; J44.1 Chronic obstructive pulmonary disease with (acute) exacerbation; Z87.891 Personal history of nicotine dependence; K21.9 Gastro-esophageal reflux disease without esophagitis; E87.6 Hypokalemia; I10 Essential (primary) hypertension; E78.5 Hyperlipidemia, unspecified; G47.33 Obstructive sleep apnea (adult) (pediatric); I25.119 Atherosclerotic heart disease of native coronary artery with unspecified angina pectoris; F32.9 Major depressive disorder, single episode, unspecified; R00.0 Tachycardia, unspecified; Z53.29 Procedure and treatment not carried out because of patient's decision for other reasons; M19.90 Unspecified osteoarthritis, unspecified site; Z86.711 Personal history of pulmonary embolism; Z90.49 Acquired absence of other specified parts of digestive tract; Z98.1 Arthrodesis status
CPT/HCPCS: 71010; 71020; 71275; 80048; 80053; 80202; 81001; 82550; 82565; 83605; 83690; 83735; 83880; 84132; 84484; 85025; 85027; 85379; 85610; 85730; 87040; 87086; 87804; 93005; 94640; 94664; 96365; 96366; 96368; J0456; J0692; J0696; J1644; J2920; J3370; J7030; J7050; J7512; P9612; Q9967

== ENCOUNTER 2017-02-12 19:57 | Emergency (ER) | payer MEDICARE, OTHER ==
[~2017-02-12] VITALS: Ht 167.6 cm; Wt 54.5 kg
[~2017-02-12 19:57] MED LIST changes: +AMLO10 PO; +AUGM500T7 PO; +PRED10 PO; +guaiFENesin ER PO
[2017-02-12] MEDS ORDERED: SODIUM CHLORIDE 0.9% FLUSH 10 ML FLUSH IVF PRN (20:30)
[2017-02-12] MEDS ORDERED: SODIUM CHLORID 0.9% 500 ML INJ 500 ML IV ONE (20:30)
[2017-02-12] MEDS ORDERED: HYDR-3583 PO (21:11)
[2017-02-12 21:12] VITALS: BP 125/89; PULSE 78; RESP 16; TEMP 98.4; O2SAT 95
--- NOTE | 2017-02-12 21:18 | RADRPT ---
EXAM DATE/TIME: 02/12/2017 20:54 [facility] COMPARISON: No previous studies available for comparison. INDICATIONS : Dizziness. RADIATION DOSE: 30.88 CTDIvol (mGy) MEDICAL HISTORY : Cardiovascular disease. Hypertension. SURGICAL HISTORY : None. ENCOUNTER: Initial ACUITY: 1 day PAIN SCALE: 0/10 LOCATION: cranial TECHNIQUE: Multiple contiguous axial images were obtained of the head. Using automated exposure control and adj ustment of the mA and/or kV according to patient size, radiation dose was kept as low as reasonably a chievable to obtain optimal diagnostic quality images. DICOM format image data is available electro nically for review and comparison. FINDINGS: CEREBRUM: The ventricles are normal for age. No evidence of midline shift, mass lesion, hemorrhage or acute in farction. No extra-axial fluid collections are seen. POSTERIOR FOSSA: The cerebellum and brainstem are intact. The 4th ventricle is midline. The cerebellopontine angle i s unremarkable. EXTRACRANIAL: The visualized portion of the orbits is intact. SKULL: The calvaria is intact. No evidence of skull fracture. CONCLUSION: 1. Chronic white matter ischemic changes. No acute intracranial abnormalities. Miah Major MD on February 12, 2017 at 21:14 Board Certified Radiologist. This report was verified electronically.
--- NOTE | 2017-02-12 21:21 | RADRPT ---
EXAM DATE/TIME: 02/12/2017 20:32 [facility] COMPARISON: No previous studies available for comparison. INDICATIONS : Fall pain at right arm. MEDICAL HISTORY : None. SURGICAL HISTORY : None. ENCOUNTER: Initial ACUITY: 1 day PAIN SCORE: 9/10 LOCATION: Right elbow FINDINGS: There are fractures of the distal radius and ulna with foreshortening. No acute dislocation. Bones ar e osteopenic. CONCLUSION: 1. Fractures distal radius and ulna with foreshortening, especially at the radius. No dislocation. iMah Major MD on February 12, 2017 at 21:19 Board Certified Radiologist. This report was verified electronically.
--- NOTE | 2017-02-12 21:23 | RADRPT ---
EXAM DATE/TIME: 02/12/2017 20:35 [facility] COMPARISON: No previous studies available for comparison. INDICATIONS : Fall pain in right wrist. MEDICAL HISTORY : None. SURGICAL HISTORY : None. ENCOUNTER: Initial ACUITY: 1 day PAIN SCORE: 10/10 LOCATION: Right wrist FINDINGS: Two view examination of the right elbow demonstrates no soft tissue swelling, joint effusion, fractur e or dislocation. Bony mineralization is diminished. CONCLUSION: 1. No acute findings at the right elbow. Bones are osteopenic. Miah Major MD on February 12, 2017 at 21:20 Board Certified Radiologist. This report was verified electronically.
--- NOTE | 2017-02-12 21:25 | RADRPT ---
EXAM DATE/TIME: 02/12/2017 20:40 [facility] COMPARISON: No previous studies available for comparison. INDICATIONS : Fall pain in right arm, near shoulder area. MEDICAL HISTORY : None. SURGICAL HISTORY : None. ENCOUNTER: Initial ACUITY: 1 day PAIN SCORE: 6/10 LOCATION: Right humerus FINDINGS: Two view examination of the right humerus demonstrates no evidence of fracture or dislocation. Bony mineralization is decreased. The soft tissue structures are intact. CONCLUSION: 1. No acute fracture identified. Osteopenia. Osteoarthritis of the right shoulder. Miah Major MD on February 12, 2017 at 21:23 Board Certified Radiologist. This report was verified electronically.
[2017-02-12] MEDS ORDERED: oxyCODONE/ACETAMINOPHEN 5 MG/325 MG TAB PO ONE (22:15)
[2017-02-12] MEDS ORDERED: MORPHINE SULFATE 4 MG/ML INJ IV PUSH ONE (22:15)
[2017-02-12 22:30] LABS: AUTOMATED NEUTROPHIL # 8.7 TH/MM3 (1.8-7.7); BASOPHIL % 0.2 % (0.0-2.0); EOSINOPHIL # 0.4 TH/MM3 (0-0.4); EOSINOPHIL % 3.3 % (0.0-4.0); HEMATOCRIT 33.6 % (35.0-46.0); HEMOGLOBIN 11.1 GM/DL (11.6-15.3); LYMPH % 9.2 % (9.0-44.0); MEAN CELL VOLUME 86.7 FL (80.0-100.0); MEAN CORPUSCULAR HEMOGLOBIN 28.6 PG (27.0-34.0); MONO % 8.3 % (0.0-8.0); MONOCYTE # 0.9 TH/MM3 (0-0.9); PLATELET COUNT 276 TH/MM3 (150-450); RED BLOOD COUNT 3.87 MIL/MM3 (4.00-5.30); RED CELL DISTRIBUTION WIDTH 15.2 % (11.6-17.2)
--- NOTE | 2017-02-12 22:35 | RADRPT ---
EXAM DATE/TIME: 02/12/2017 22:25 [facility] COMPARISON: No previous studies available for comparison. INDICATIONS : Right wrist post reduction. MEDICAL HISTORY : Cardiovascular disease. Hypertension. a-fib. SURGICAL HISTORY : None. ENCOUNTER: Initial ACUITY: 1 day PAIN SCORE: 5/10 LOCATION: Right wrist FINDINGS: Two view examination of the right wrist demonstrates a fractures of the distal radius and ulna with f oreshortening. Isn't proved alignment compared with earlier exam. Overlying cast. CONCLUSION: 1. Cast overlies slight improvement in alignment of distal radius and ulna fractures. Miah Major MD on February 12, 2017 at 22:32 Board Certified Radiologist. This report was verified electronically.
[2017-02-12 22:39] LABS: PROTHROMBIN TIME - PATIENT 10.5 SEC (9.8-11.6)
[2017-02-12] MEDS ORDERED: RESP: ALBUTEROL 2.5 MG/3 ML NEB (SCH) NEB ONE (22:45)
[2017-02-12 22:50] LABS: ALBUMIN 2.8 GM/DL (3.4-5.0); ALT (GPT) 24 U/L (10-53); AST (GOT) 26 U/L (15-37); BICARBONATE 26.9 MEQ/L (21.0-32.0); BLOOD UREA NITROGEN 10 MG/DL (7-18); CALCIUM 8.7 MG/DL (8.5-10.1); CHLORIDE 98 MEQ/L (98-107); GLOMERULAR FILTRATION RATE 121 ML/MIN (>89); GLUCOSE,RANDOM 88 MG/DL (74-106); SODIUM (NA) 131 MEQ/L (136-145)
[2017-02-12 22:54] LABS: ALKALINE PHOSPHATASE 127 U/L (45-117); TOTAL BILIRUBIN ADULT 0.2 MG/DL (0.2-1.0); TOTAL PROTEIN 6.6 GM/DL (6.4-8.2); TROPONIN I LESS THAN 0.02 NG/ML (0.02-0.05)
[2017-02-12 23:07] VITALS: O2SAT 92
[2017-02-13 00:13] LABS: BILIRUBIN, URINE NEG (NEG); BLOOD, URINE NEG (NEG); GLUCOSE,URINE NEG (NEG); KETONE, URINE TRACE mg/dL (NEG); NITRITE,URINE NEG (NEG); PH, URINE 5.5 (5.0-8.5); SQUAMOUS EPITHELIAL CELL URINE 1 /hpf (0-5); URINE COLOR YELLOW (YELLW/STRAW); URINE LEUKOCYTE ESTERASE LARGE (NEG)
--- NOTE | 2017-02-13 00:16 | PD ---
HPI Chief Complaint: Fall Time Seen by Provider: 20:20 Travel History International Travel<30 days: No Contact w/Intl Traveler<30days: No Traveled to known affect area: No History of Present Illness HPI Patient is a 76 year old female who comes in after a fall tonight. She says she is not sure how she fell. She says that she felt dizzy prior to the fall, but currently has no symptoms. She denies any chest pain or SOB. She denies fever or chills. She says she hit her head on the way down. She complains of pain to her right wrist. She denies any other pain. She says she was unable to get herself up after the fall due to pain to her right wrist. She denies any loss of consciousness. [facility] Past Medical History Arthritis: No Asthma: Yes Atrial Fibrillation: Yes Autoimmune Disease: No Anxiety: No Depression: Yes (PT STATES SHE LAUGHS TO MUCH NO DEPRESSION) Heart Rhythm Problems: Yes (CARDIOVERTED FOR A-FIB WITH RVR) Cardiovascular Problems: Yes High Cholesterol: No Chemotherapy: No Chest Pain: No Congestive Heart Failure: No COPD: Yes Cerebrovascular Accident: No Coronary Artery Disease: Yes Diabetes: No Diminished Hearing: No Endocrine: No Gastrointestinal Disorders: Yes GERD: Yes Genitourinary: No Hepatitis: No Hiatal Hernia: No Hypertension: Yes (DOESN'T RECALL HIGH BP) Immune Disorder: No Kidney Stones: No Musculoskeletal: Yes (ENTIRE LT SIDE OF BODY PAIN FROM VERTEBRAE- PT DOESNT RECALL PAIN) Neurologic: No Psychiatric: Yes (PT STATES SHE LAUGHS TO MUCH NO DEPRESSION) Reproductive: No Respiratory: Yes (COPD) Migraines: No Myocardial Infarction: No Radiation Therapy: No Renal Failure: No Seizures: No Sickle Cell Disease: No Sleep Apnea: No Thyroid Disease: No Ulcer: Yes (PT DOESN'T RECALL) Past Surgical History Abdominal Surgery: Yes (GALL BLADDER SX) AICD: No Appendectomy: No Arteriovenous Shunt: No Cardiac Surgery: No Section: Yes Cholecystectomy: Yes Ear Surgery: No Endocrine Surgery: No Eye Surgery: No Genitourinary Surgery: No Gynecologic Surgery: Yes Insulin Pump: No Joint Replacement: Yes (R HIP REPLACEMENT) Neurologic Surgery: Yes (BLOOD CLOT IN SPINE) Oral Surgery: No Pacemaker: No Thoracic Surgery: No Other Surgery: Yes (CERV FUSION) Social History Alcohol Use: No Tobacco Use: No (Quit 6 years ago) Substance Use: No Allergies-Medications (Allergen,Severity, Reaction): Coded Allergies: *MDRO Multi-Drug Resistant Organism (Verified Adverse Reaction, Unknown, Cleared, 02/12/17) MRSA (sputum) - 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 MRSA PCR Screens NEGATIVE - 06/19/16 & 06/21/16 CLEARED PER INFECTION CONTROL PROTOCOL Reported Meds & Prescriptions Reported Meds & Active Scripts Active Reported Hydrocodone-Acetaminophen 10-325 mg Tab 1 Tab PO Q6H PRN Fluoxetine (Fluoxetine HCl) 40 Mg Cap 40 Cap PO DAILY Montelukast (Montelukast Sodium) 10 Mg Tab 10 Mg PO HS Duoneb (Ipratropium-Albuterol Neb) 0.5-2.5 Mg/3 Ml Neb 2.5 Nebule INH Q4HR NEB Ventolin Hfa 18 GM Inh (Albuterol Sulfate) 90 Mcg/Act Aer 2 Puff INH Q4H PRN Symbicort Inh (Budesonide/Formoterol Fumarate) 160-4.5 Mcg/Act Aero 1 Puff INH BID PRN Metoprolol Tartrate 50 Mg Tab 50 Mg PO BID Review of Systems Except as stated in HPI: all other systems reviewed are Neg General / Constitutional: No: Fever, Chills Eyes: No: Blurred Vision HENT: Positive: Lightheadedness, No: Headaches Cardiovascular: No: Chest Pain or Discomfort Respiratory: No: Shortness of Breath Musculoskeletal: Positive: Limited ROM, Edema, Pain, No: Myalgias Skin: No Rash, No Change in Pigmentation Neurologic: Positive: Dizziness, No: Weakness, Syncope Physical Exam Narrative GENERAL: Awake and alert, in no acute distress. SKIN: Focused skin assessment warm/dry. No wounds. HEAD: Atraumatic. Normocephalic. EYES: Pupils equal and round. No scleral icterus. Extraocular movements intact. ENT: Mucous membranes pink and moist. NECK: Trachea midline. No JVD. No cervical spine tenderness. CARDIOVASCULAR: Regular rate and rhythm. No murmur appreciated. RESPIRATORY: No accessory muscle use. Clear to auscultation. Breath sounds equal bilaterally. GASTROINTESTINAL: Abdomen soft, non-tender, nondistended. MUSCULOSKELETAL: No clubbing. No cyanosis. Edema and deformity of the right wrist. Pain with movement of the right wrist. Sensation and pulses intact. NEUROLOGICAL: Awake and alert. No obvious cranial nerve deficits. Motor grossly within normal limits. Normal speech. PSYCHIATRIC: Appropriate mood and affect; insight and judgment normal. Data Data Last Documented VS Vital Signs Date Time Temp Pulse Resp B/P (MAP) Pulse Ox O2 Delivery O2 Flow Rate FiO2 02/12/17 23:07 92 Nasal Cannula 2.00 02/12/17 21:12 98.4 78 16 125/89 (101) Orders Orders Electrocardiogram (02/12/17 20:20) Complete Blood Count With Diff (02/12/17 20:20) Comprehensive Metabolic Panel (02/12/17 20:20) Troponin I (02/12/17 20:20) Act Partial Throm Time (Ptt) (02/12/17 20:20) Prothrombin Time / Inr (Pt) (02/12/17 20:20) Urinalysis - C+S If Indicated (02/12/17 20:20) Ct Brain W/O Iv Contrast(Rout) (02/12/17 20:20) Ecg Monitoring (02/12/17 20:20) Iv Access Insert/Monitor (02/12/17 20:20) Oximetry (02/12/17 20:20) Sodium Chloride 0.9% Flush (Ns Flush) (02/12/17 20:30) Humerus (Min 2vws) (02/12/17 ) Sodium Chlorid 0.9% 500 Ml Inj (Ns 500 M (02/12/17 20:30) Wrist, Limited (Ap&Lat) (02/12/17 ) Elbow, Limited (Ap&Lat) (02/12/17 ) Morphine Inj (Morphine Inj) (02/12/17 22:15) Wrist, Limited (Ap&Lat) (02/12/17 ) Oxycodone-Acetamin 5-325 Mg (Percocet (02/12/17 22:15) Albuterol Neb (Albuterol Neb) (02/12/17 22:45) Urine Culture (02/12/17 23:40) Labs Laboratory Tests Test 02/12/17 21:24 02/12/17 23:40 White Blood Count 11.0 TH/MM3 Red Blood Count 3.87 MIL/MM3 Hemoglobin 11.1 GM/DL Hematocrit 33.6 % Mean Corpuscular Volume 86.7 FL Mean Corpuscular Hemoglobin 28.6 PG Mean Corpuscular Hemoglobin Concent 33.0 % Red Cell Distribution Width 15.2 % Platelet Count 276 TH/MM3 Mean Platelet Volume 8.0 FL Neutrophils (%) (Auto) 79.0 % Lymphocytes (%) (Auto) 9.2 % Monocytes (%) (Auto) 8.3 % Eosinophils (%) (Auto) 3.3 % Basophils (%) (Auto) 0.2 % Neutrophils # (Auto) 8.7 TH/MM3 Lymphocytes # (Auto) 1.0 TH/MM3 Monocytes # (Auto) 0.9 TH/MM3 Eosinophils # (Auto) 0.4 TH/MM3 Basophils # (Auto) 0.0 TH/MM3 CBC Comment DIFF FINAL Differential Comment Prothrombin Time 10.5 SEC Prothromb Time International Ratio 1.0 RATIO Activated Partial Thromboplast Time 21.5 SEC Blood Urea Nitrogen 10 MG/DL Creatinine 0.50 MG/DL Random Glucose 88 MG/DL Total Protein 6.6 GM/DL Albumin 2.8 GM/DL Calcium Level 8.7 MG/DL Alkaline Phosphatase 127 U/L Aspartate Amino Transf (AST/SGOT) 26 U/L Alanine Aminotransferase (ALT/SGPT) 24 U/L Total Bilirubin 0.2 MG/DL Sodium Level 131 MEQ/L Potassium Level 4.5 MEQ/L Chloride Level 98 MEQ/L Carbon Dioxide Level 26.9 MEQ/L Anion Gap 6 MEQ/L Estimat Glomerular Filtration Rate 121 ML/MIN Troponin I LESS THAN 0.02 NG/ML Urine Color YELLOW Urine Turbidity HAZY Urine pH 5.5 Urine Specific [place] 1.019 Urine Protein TRACE mg/dL Urine Glucose (UA) NEG mg/dL Urine Ketones TRACE mg/dL Urine Occult Blood NEG Urine Nitrite NEG Urine Bilirubin NEG Urine Urobilinogen LESS THAN 2.0 MG/DL Urine Leukocyte Esterase LARGE Urine RBC 6 /hpf Urine WBC 26 /hpf Urine Squamous Epithelial Cells 1 /hpf Microscopic Urinalysis Comment CULTURE INDICATED MDM Medical Decision Making Medical Screen Exam Complete: Yes Emergency Medical Condition: Yes Medical Record Reviewed: Yes Interpretation(s) ECG shows normal sinus rhythm at 79, no ST elevation or depression, normal intervals Differential Diagnosis UTI versus wrist fracture versus wrist sprain versus electrolyte abnormality versus dehydration Narrative Course Patient is a 76-year-old female comes in after a fall. Exam shows obvious deformity of her right wrist. IV established, labs sent. Labs show no acute abnormalities. Urinalysis is positive for leukocyte esterase as well as white blood cells. X-ray of the wrist shows fracture of the distal radius and ulna with shortening. Reduction was attempted, and wrist was splinted with a sugar tong. I spoke with Dr. Ho of orthopedics, who says if her pain is controlled, she can follow-up in the office. Patient be discharged with pain medicine as well as antibiotics for her UTI. She is advised follow-up with Dr. Ho, and her primary doctor. Advised return to the ED as needed for any worsening symptoms. Diagnosis Primary Impression: UTI (urinary tract infection) Qualified Codes: N30.00 - Acute cystitis without hematuria Additional Impression: Wrist fracture, right Qualified Codes: S62.101A - Fracture of unspecified carpal bone, right wrist, initial encounter for closed fracture Referrals: Travis Ho MD call for appointment Patient Instructions: General Instructions, Urinary Tract Infection in Women ( ED), Wrist Fracture in Adults (ED) Additional Instructions: Follow-up with orthopedics, Dr. Ho, next week. Do not get her splint wet, and make sure you wear it until you see the orthopedic doctor. Take pain medicine as needed. Take all of your antibiotic. Follow-up with her primary care doctor. Return to the ED as needed for any worsening symptoms. Scripts Cephalexin (Keflex) 500 Mg Capsule 500 MG PO QID for Infection for 7 Days, CAP 0 Refills Prov: Lupe Adler MD 02/13/17 Hydrocodone-Acetaminophen ([place]) 5 Mg-325 Mg Tab 1 TAB PO Q6H Y for PAIN, #12 TAB 0 Refills Prov: Lupe Adler MD 02/13/17 Disposition: 01 DISCHARGE HOME Condition: Stable Lupe Adler MD Feb 13, 2017 00:16
[2017-02-13] MEDS ORDERED: CEPH-460 PO (00:26)
[2017-02-13] MEDS ORDERED: NORC5TAB PO (00:26)
[2017-02-13] MEDS ORDERED: RESP: ALBUTEROL 2.5 MG/IPRATROPIUM 0.5 MG NEB (SCH) INH ONE (05:45)
[2017-02-13] MEDS ORDERED: ACETAMINOPHEN/HYDROcodone 325 MG/5 MG TAB PO ONE (06:30)
--- NOTE | 2017-02-13 15:29 | EKG ---
Date Performed: 02/12/2017 Time Performed: 21:35:31 PTAGE: 76 years EKG: Sinus rhythm NORMAL ECG PREVIOUS TRACING : 08/05/2016 19.41 DOCTOR: Eliezer Andre Interpretating Date/Time 02/13/2017 15:27:45
== END 2017-02-13 01:48 | disposition home or self-care (01) ==
LOC: NEPE 19:57
DX: S52.501A Unspecified fracture of the lower end of right radius, initial encounter for closed fracture (principal); S52.601A Unspecified fracture of lower end of right ulna, initial encounter for closed fracture; N39.0 Urinary tract infection, site not specified; M19.011 Primary osteoarthritis, right shoulder; R42 Dizziness and giddiness; I48.91 Unspecified atrial fibrillation; J44.9 Chronic obstructive pulmonary disease, unspecified; I25.10 Atherosclerotic heart disease of native coronary artery without angina pectoris; W19.XXXA Unspecified fall, initial encounter
CPT/HCPCS: 25605; 70450; 73060; 73070; 73100; 80053; 81001; 84484; 85025; 85610; 85730; 87086; 93005; 94640; 94664; 96361; 96374; 99285; J2270; J7040; J7613